=== PATIENT | male | born 1990 | race American Indian/Alaskan Native ===

== ENCOUNTER 2020-07-21 11:50 | Outpatient (REF) | payer MEDICARE, MEDICAID, SELFPAY | END 2020-07-21 11:51 | disposition home or self-care (01) | LOC: HO.LAB 11:50 | PROVIDERS: Visit Provider Internal Medicine | DX: Z20.828 Contact with and (suspected) exposure to other viral communicable diseases (principal) | CPT/HCPCS: C9803; U0003 ==

== ENCOUNTER 2021-05-05 13:14 | Emergency (ER) | payer MEDICARE, MEDICAID, SELFPAY ==
--- NOTE | ~2021-05-05 | XR_ITS ---
EXAMINATION: XR KNEE, RIGHT CLINICAL INFORMATION: Fall. History of ACL tear in the past. COMPARISON: None TECHNIQUE: Four views of the right knee. FINDINGS: Status post ACL repair. There is fullness in the suprapatellar area from a moderate to large volume joint effusion. There is no fracture. No dislocation. No acute osseous abnormality. XR/XR knee RT 4V IMPRESSION: Moderate to large volume joint effusion. No acute osseous abnormality.
[2021-05-05 13:31] VITALS: BP 116/74; PULSE 84; RESP 18; TEMP 36.9; O2SAT 97; BMI 22.4
--- NOTE | 2021-05-05 14:37 | ED_ITS ---
HPI - Extremity Problem General Chief complaint: Extremity Problem Stated complaint: knee pain Time Seen by Provider: 05/05/21 14:36 Source: patient Limitations: no limitations History of Present Illness HPI Narrative: Patient presents with worsening right knee pain. Patient has a history of an ACL tear in the past that was repaired. Patient states he fell yesterday when he slipped in the rain leaning on the outside of the right knee. Patient states he had some pain yesterday and slight swelling but the swelling has worsened today. Pain increases with range of motion weight-bearing. Pain is 7/10. Patient denies any other injuries or complaints at this time. Patient does smoke tobacco. Patient denies nausea vomiting chest pain shortness of breath fever chills. Related Data Previous Rx's Medication Instructions Recorded naproxen 500 mg tablet 500 mg PO BID PRN #30 tab 05/05/21 Allergies Allergy/AdvReac Type Severity Reaction Status Date / Time No Known Allergies Allergy Unverified 04/23/20 16:56 Review of Systems Constitutional: Constitutional: Denies chills, Denies fever(s) and Denies headache(s) ENT: Denies headache(s) Cardiovascular: Cardiovascular: Denies chest pain and Denies dyspnea Respiratory: Respiratory: Denies cough and Denies dyspnea Gastrointestinal: Gastrointestinal: Denies abdominal pain, Denies nausea and Denies vomiting Musculoskeletal: Musculoskeletal: Denies back pain, Denies myalgias and Reports joint swelling Comments: Right knee pain Neurologic: Denies headache(s) Hematologic/Lymphatic: Hematologic/Lymphatic: Denies easy bruising Allergic/Immunologic: Allergic/Immunologic: Denies urticaria PMFSH Past Medical History Attestation statement: The following information was validated with the patient. Social History Social History Advance Directives: No Advance Directives Information Provided: No Physical Exam Vital Signs: Vital Signs: Last Vital Signs Temp 98.4 F 05/05/21 13:31 Pulse 84 05/05/21 13:31 Resp 18 05/05/21 13:31 BP 116/74 05/05/21 13:31 Pulse Ox 97 05/05/21 13:31 Body Mass Index 22.4 vital signs have been reviewed as normal and appeared to be correct. Blood pressure normal. Heart rate normal. Respiration rate normal. Temperature normal. Oxygen saturation normal. Appearance: Alert. Oriented X3. No acute distress. Head: Normal external exam. Normocephalic. Atraumatic. Eyes: PERRLA. EOMI. Conjunctiva and sclera normal. Eyelids normal. ENT: Pharynx normal. Uvula midline. Moist mucous membranes. Neck: Soft full range of motion, no JVD CVS: Heart regular rate and rhythm no murmurs and rubs Respiratory: Breath sounds are clear to auscultation bilaterally. No accessory muscle use noted. Abdomen: Soft nontender no rebound or guarding positive bowel sounds Skin: Skin warm and dry. Normal skin color. Normal skin turgor. No rashes/lesions/lacerations noted. Extremities: Right knee large to moderate effusion noted positive joint line tenderness question laxity in joint. Diffuse tenderness right joint line greater than left Neuro: Oriented X 3. No motor deficit. No sensory deficit. Reflexes normal. Course Course Course Narrative: Right knee fracture Right knee ACL tear Underlying meniscal injury Right knee joint effusion Symptoms consistent with a ligament tear secondary to large effusion will get a baseline x-ray recommend follow-up with Orthopedics knee immobilizer crutches. 3:[address] patient in knee immobilizer crutches with follow-up with Orthopedics patient does have a large knee effusion on x-ray no sign of osseous injury MDM - Extremity (Nontraumatic) Imaging Data knee: Radiologist's impression: [place] [id number] XRay Report Signed Patient: Tone Boraj MR#: [id number] : 1990 Acct:[id number] Age/Sex: 31 / M ADM Date: 05/05/21 Loc: HO.ED Attending Dr: Ordering Physician: Kevin Molina Date of Service: 05/05/21 Procedure(s): XR knee RT 4V Accession Number(s): [id number] cc: Kevin Molina ~ EXAMINATION: XR KNEE, RIGHT? CLINICAL INFORMATION: Fall. History of ACL tear in the past.? COMPARISON: None? TECHNIQUE: Four views of the right knee. FINDINGS: Status post ACL repair. There is fullness in the suprapatellar area from a moderate to large volume joint effusion. There is no fracture. No dislocation. No acute osseous abnormality.? XR/XR knee RT 4V IMPRESSION: Moderate to large volume joint effusion. No acute osseous abnormality. ? Dictated By: DIANA ZEE MD Signed By: <Electronically signed by DIANA ZEE MD in OV> 05/05/21 1501 DD/ 1436 TD/TT:? Data Entry Associate: ERLIN Discharge Plan Discharge Clinical Impression: Right knee sprain Qualifiers: Encounter type: initial encounter Involved ligament of knee: anterior cruciate ligament Qualified Code(s): S83.511A - Sprain of anterior cruciate ligament of right knee, initial encounter Effusion of knee joint Qualifiers: Laterality: right Qualified Code(s): M25.461 - Effusion, right knee Patient Disposition: Home, Self-Care Instructions: Knee Sprain (ED), Crutch Instructions (ED) Additional Instructions: Knee immobilizer crutches or rest ice elevation need to follow up with Orthopedics to rule out underlying ligament injury which is what were concerned for. Prescriptions: New naproxen 500 mg tablet 500 mg PO BID PRN (Reason: pain) Qty: 30 RF: 0 Referrals: Gino Carmona MD [Physician] - 2 days (Prior history of ACL repair a large knee effusion after injury) Interventions: ED Discharge Assessment Last Done: 05/05/21 15:40 Discharge Date/Time: 05/05/21 15:41
== END 2021-05-05 15:41 | disposition home or self-care (01) ==
PROVIDERS: Emergency Provider Emergency Medicine Emergency Medical Services
DX: S83.511A Sprain of anterior cruciate ligament of right knee, initial encounter (principal); M25.461 Effusion, right knee; M25.561 Pain in right knee; X58.XXXA Exposure to other specified factors, initial encounter; Y93.9 Activity, unspecified; Y92.9 Unspecified place or not applicable; Y99.9 Unspecified external cause status; Z79.899 Other long term (current) drug therapy
CPT/HCPCS: 73564; 99283

== ENCOUNTER 2021-05-11 19:52 | Inpatient (IN) | payer MEDICARE, MEDICAID, SELFPAY ==
--- NOTE | ~2021-05-11 | XR_ITS ---
EXAMINATION: XR CHEST CLINICAL INFORMATION: Follow-up pneumothorax COMPARISON: Previous chest x-rays most recent from yesterday TECHNIQUE: Frontal view of the chest was obtained. FINDINGS: There is a small right apical pneumothorax. This measures 7 mm in greatest thickness at the right lung apex and is decreased from yesterday's exam. Right chest tube is unchanged in position. The cardiac and mediastinal contours are normal. The lungs are clear. There is no pleural effusion. Bony structures are unremarkable. XR/XR chest 1V IMPRESSION: Stable position of right chest tube. Small residual right apical pneumothorax decreased from yesterday's exam.
--- NOTE | ~2021-05-11 | XR_ITS ---
EXAMINATION: XR CHEST CLINICAL INFORMATION: Shortness of breath COMPARISON: Previous chest x-ray from earlier the same day TECHNIQUE: Frontal view of the chest was obtained. FINDINGS: There is a small right apical pneumothorax that appears unchanged. This measures 5 mm in greatest thickness at the lung apex. Right chest tube is unchanged in position. The cardiac and mediastinal contours are stable. The lungs are clear. There is no pleural effusion. Bony structures are normal. XR/XR chest 1V IMPRESSION: Stable tiny right apical pneumothorax. Stable position of right chest tube.
--- NOTE | ~2021-05-11 | XR_ITS ---
EXAMINATION: XR CHEST CLINICAL INFORMATION: Follow-up pneumothorax. Post chest tube placement. COMPARISON: Previous chest x-ray from earlier the same day TECHNIQUE: AP portable view of the chest was obtained. FINDINGS: There is a new small caliber chest tube at the right lung base. There is interval decrease in the right pneumothorax. This measures 2 cm in greatest thickness at the right lung apex. The cardiac and mediastinal contours are stable. There is atelectasis in the right lung base. The lungs are otherwise clear. There is no pleural effusion. Bony structures are unremarkable. XR/XR chest 1V IMPRESSION: Interval decrease in right pneumothorax post chest tube placement.
--- NOTE | ~2021-05-11 | XR_ITS ---
EXAMINATION: XR CHEST CLINICAL INFORMATION: Follow-up pneumothorax COMPARISON: Previous chest x-ray from earlier the same day TECHNIQUE: Frontal view of the chest was obtained. FINDINGS: There is interval decrease in the right pneumothorax compared to chest x-ray from earlier today. There is a small pneumothorax at the right lung apex measuring 1.5 cm in greatest thickness. Right chest tube is unchanged in position. The cardiac and mediastinal contours are stable. The lungs are clear. There is no left pleural effusion or pneumothorax. Bony structures are unremarkable. XR/XR chest 1V IMPRESSION: Interval decrease in right pneumothorax compared to chest x-ray earlier today.
--- NOTE | ~2021-05-11 | XR_ITS ---
EXAMINATION: XR CHEST CLINICAL INFORMATION: Follow-up pneumothorax COMPARISON: Previous chest x-rays most recent from yesterday TECHNIQUE: Inspiration and expiration views of the chest. FINDINGS: There is a moderate-sized right pneumothorax. This appears increased compared to yesterday's exam at the right base/costophrenic angle region. The cardiac and mediastinal contours are normal. There is atelectasis at the right lung base, probably the right lower lobe. The left lung is clear. There is no pleural effusion effusion. Bony structures are unremarkable. XR/XR chest 1V IMPRESSION: Moderate right pneumothorax. This is increased from yesterday's exam. Findings will be communicated by the [place] work flow police matron Jessica Prajapati on 05/12/2021
--- NOTE | ~2021-05-11 | XR_ITS ---
EXAMINATION: XR CHEST CLINICAL INFORMATION: Right pneumothorax on clamping trial COMPARISON: 05/16/2021 TECHNIQUE: Portable AP upright view of the chest was obtained. FINDINGS: Cardiac and mediastinal silhouettes are normal in appearance. Right pigtail catheter is identified overlying the mid to lower right chest. A trace right apical pneumothorax is slightly smaller than prior. The left lung is clear. XR/XR chest 1V IMPRESSION: Trace right apical pneumothorax, slightly decreased in size compared to prior. The lungs and pleural spaces are clear.
--- NOTE | ~2021-05-11 | XR_ITS ---
EXAMINATION: XR CHEST CLINICAL INFORMATION: Right pneumothorax with pigtail catheter. COMPARISON: 05/15/2021 TECHNIQUE: Frontal view of the chest was obtained. FINDINGS: Right-sided pigtail catheter remains in place. Cardiac leads overlie the chest. The lungs are well expanded. There is a tiny right apical pneumothorax again noted, similar to prior. No pleural effusion. No dense consolidation. No edema. The cardiomediastinal silhouette is within normal limits. No acute osseous abnormality. XR/XR chest 1V IMPRESSION: No change of the tiny right apical pneumothorax.
--- NOTE | ~2021-05-11 | XR_ITS ---
EXAMINATION: XR CHEST CLINICAL INFORMATION: Right pneumothorax status post chest tube placement COMPARISON: 05/12/2021 TECHNIQUE: Frontal view of the chest was obtained. FINDINGS: Right-sided chest tube remains in place, more superiorly positioned than on prior. Cardiac leads overlie the chest. The lungs are well expanded. Small right apical pneumothorax is without change from prior. No dense consolidation. No edema or effusion. The cardiomediastinal silhouette is unchanged. XR/XR chest 1V IMPRESSION: Small right-sided pneumothorax without significant change from prior.
--- NOTE | ~2021-05-11 | XR_ITS ---
EXAMINATION: XR CHEST CLINICAL INFORMATION: Evaluate pneumothorax with chest tube to waterseal COMPARISON: Previous chest x-rays most recent from yesterday TECHNIQUE: Frontal view of the chest was obtained. FINDINGS: There is interval increase in the now moderate size right pneumothorax. This measures maximum of 4 cm at the right lung apex. The right chest tube is unchanged in position. The cardiac and mediastinal contours are normal. The lungs are clear. There is no pleural effusion. Bony structures are unremarkable. XR/XR chest 1V IMPRESSION: Interval increase in now moderate size right pneumothorax with chest tube to water seal. Findings will be communicated by a [employer] [place] work flow canal boat operator.
--- NOTE | ~2021-05-11 | CT_ITS ---
PROCEDURE: CT GUIDED INSERTION, PLEURAL TUNNEL CATHETER CLINICAL INFORMATION: Right pneumothorax COMPARISON: Previous chest x-rays most recent from earlier the same day TECHNIQUE: Procedure and risks and benefits including bleeding, infection and inability to get the lung to reinflate were discussed with the patient and informed consent was obtained. The patient was positioned in the supine position. Limited axial images through the chest were obtained. The right anterior chest was prepped and draped in the usual sterile fashion. The skin and soft tissues were anesthetized percent lidocaine plain. A CT guidance and a 5 [place] Yueh needle, access to the right pleural space was obtained. Over an 035 guidewire and proximal ureteral dilatation, a 10.2 [place] pigtail chest tube was positioned in the right pleural space. Attached to a Pleur-evac. Patient received Versed 2 mg and fentanyl 100 mcg intravenously during the procedure. Continuous hemodynamic monitoring was provided by a registered nurse under my direct supervision. Total sedation time was [address] examination was performed using dose optimization techniques as appropriate, variously including the following: *Automated exposure control *Adjustment of mA and/or kV according to patient size (this includes techniques or standardized protocols for targeted exams where dose is matched to indication/reason for exam; i.e. extremities or head) *Use of iterative reconstruction technique DLP: 143 mGy-cm FINDINGS: There is a moderate to size right pneumothorax. There is atelectasis and consolidation of the right lower lobe. There is no right pleural effusion. Images following chest tube placement demonstrate chest tube adjacent to the right middle lobe. There is reinflation of the right lung. There is a small remaining right pneumothorax. There is residual atelectasis or consolidation of the right lower lobe. CT/CT chest tube placement IMPRESSION: CT-guided right chest tube placement.
--- NOTE | ~2021-05-11 | XR_ITS ---
EXAMINATION: CHEST 2 VIEWS CLINICAL INFORMATION: right sided chest pain after cocaine use . COMPARISON: 09/21/2019. TECHNIQUE: PA and lateral views of the chest obtained. FINDINGS: Lungs are well expanded. There is moderate size right-sided pneumothorax which is new from the prior chest x-ray. Minimal left basilar scarring or atelectasis. No significant effusion or edema. No focal infiltrate. Cardiac and mediastinal silhouettes within normal limits for size. No acute bony abnormality. XR/XR chest 2V IMPRESSION: Moderate-sized right apical pneumothorax of approximately 25%. No acute focal airspace disease with minimal linear atelectasis in the left base. This critical result was discussed with Dr. Martin at 05/11/2021 9:09 PM and it was ascertained that the content and urgency of the report was understood at the time of direct communication.
[2021-05-11 20:07] VITALS: BP 125/83; PULSE 95; RESP 21; TEMP 37.3; O2SAT 100; BMI 22.4
--- NOTE | 2021-05-11 20:08 | ED.CHESTPAIN ---
HPI - Chest Pain General Chief Complaint: Chest Pain Stated Complaint: cp Time Seen by Provider: 05/11/21 20:08 Source: patient Mode of arrival: ambulatory Limitations: no limitations History of Present Illness HPI narrative: Patient with chest pain and shortness of breath. Patient had cocaine and marijuana and then developed chest pain complaint: chest pain Onset (ago): minute(s) Timing of current episode: constant Onset: associated with drug use Pain location: right chest Severity: moderate Quality: sharp Exacerbating factors: nothing Associated symptoms: diaphoresis Related Data Previous Rx's Medication Instructions Recorded naproxen 500 mg tablet 500 mg PO BID PRN #30 tab 05/05/21 Allergies Allergy/AdvReac Type Severity Reaction Status Date / Time No Known Allergies Allergy Unverified 04/23/20 16:56 Review of Systems Constitutional: Constitutional: Reports no additional constitutional complaints Eyes: Eyes: Reports no additional eye complaints ENT: Denies dizziness Cardiovascular: Cardiovascular: Reports no additional cardiovascular complaints Respiratory: Respiratory: Reports as per HPI Gastrointestinal: Gastrointestinal: Reports no additional gastrointestinal complaints Musculoskeletal: Musculoskeletal: Reports no additional musculoskeletal complaints Integumentary/Breasts: Skin/Breast: Denies rash Neurologic: Reports system reviewed and no additional complaints, except as documented, Denies dizziness and Denies Sensory deficit (Neuro) Psychiatric: Psychiatric: Denies anxiety [facility] Social History Social History Patient Tobacco Use Status: Current everyday Tobacco user Use of substances other than those prescribed or required for medical reasons: Yes Substance Use Type: Crack/Cocaine Advance Directives: No Advance Directives Information Provided: No Physical Exam Vital Signs: Vital Signs: Last Vital Signs Temp 99.2 F 05/11/21 20:16 Pulse 93 05/11/21 20:16 Resp 20 05/11/21 20:16 BP 125/83 05/11/21 20:16 Pulse Ox 98 05/11/21 20:16 Body Mass Index 22.4 Const: Other: Patient with diaphoresis General: healthy appearing Nutritional Appearance: thin Orientation/consciousness: oriented to person and patient oriented x3 Limitations: no limitations HENMT: Head: Yes normal to inspection Ears: external ears normal General nose exam: Normal external nose present Mouth: Normal oral and palatal mucosa present and oropharynx normal Throat: Yes posterior oropharynx normal Eyes: General: appearance normal, both eyes and all related structures Neck: Other: supple Neck: Yes normal visual inspection Chest: Chest palpation & inspection: normal inspection of the chest Resp: Auscultation: clear to auscultation bilaterally Cardio: Jugular venous distension: no JVD Rate: regular rate Rhythm: regular rhythm Heart sounds: S1 normal heart sound present and S2 normal heart sound present GI: Inspection: Yes normal to inspection Palpation (GI): Soft to palpation, nontender and No hepatosplenomegaly present Auscultation: normal bowel sounds : General: Yes no CVA tenderness Back/Spine/Pelvis: Back: no CVA tenderness Skin: General skin exam: no rashes or lesions noted Neuro: General: oriented to person and patient oriented x3 Cranial nerves: Yes CN's II-XII intact bilaterally Motor exam (neuro): 5/5 motor strength present throughout Sensory Exam: No Sensory deficit (Neuro) Extrem: General: Yes normal to inspection Psych: Appearance: grossly normal Course Reevaluation(s) Reevaluation #1: patient with 20% PTX will discuss with thoracic surgery Time: 20:55 Reevaluation #2: Discussed with Shan from Thoracic surgery will place on 100% NRB and admit for repeat CXR in the morning Time: 21:19 MDM - Chest Pain Lab Data Result diagrams: 05/11/21 20:24 05/11/21 20:24 Labs: Lab Results 05/11/21 05/11/21 05/11/21 Range/Units 20:24 20:24 20:24 WBC 10.9 H (4.8-10.8) X10*3/uL RBC 4.40 L (4.60-5.80) X10*6/uL Hgb 13.3 L (14.0-18.0) g/dl Hct 39.0 L (42-52) % MCV 88.6 (80-98) fL MCH 30.2 (27.0-33.0) pg MCHC 34.1 (31.0-36.0) g/dl RDW 12.3 (11.0-16.0) % Plt Count 298 (160-400) X10*3/uL MPV 9.1 L (9.4-12.4) fL Immature Gran % (Auto) 0.3 (0.0-0.4) % Neut % (Auto) 74.3 H (45-73) % Lymph % (Auto) 19.7 L (20-40) % [place] % (Auto) 5.2 (2-11) % Eos % (Auto) 0.1 (0-4) % Baso % (Auto) 0.4 (0-2) % Lymph # (Auto) 2.2 (1.2-4.9) X10*3/uL [place] # (Auto) 0.6 (0.1-1.2) X10*3/uL Eos # (Auto) 0.0 (0.0-0.4) X10*3/uL Baso # (Auto) 0.0 (0.0-0.2) X10*3/uL Abs Immat Gran (auto) 0.03 (0.00-0.03) X10*3/uL Absolute Neuts (auto) 8.1 (2.0-8.3) X10*3/uL Absolute Nucleated RBC 0.000 (0.0-0.012) X10*3/uL Nucleated RBC % (auto) 0.0 (0.0-0.2) /100WBC Sodium 141 (135-145) mmol/L Potassium 3.5 (3.3-5.1) mmol/L Chloride 106 (96-108) mmol/L Carbon Dioxide 27 (22-29) mmol/L Anion Gap 12 (12-20) BUN 9 (9-16) mg/dL Creatinine 1.19 (0.5-1.4) mg/dL Estim Creat Clear Calc 94.3 Estimated GFR > 60 Random Glucose 108 (60-115) mg/dL Calcium 9.5 (8.4-10.2) mg/dL Troponin I High Sens 10.0 (<3.5-35.0) ng/L Imaging Data Chest x-ray: My impression: 20% Ptx Discharge Plan Discharge Clinical Impression: Pneumothorax Qualifiers: Pneumothorax type: spontaneous, primary Qualified Code(s): J93.11 - Primary spontaneous pneumothorax Patient Disposition: Admitted As Inpatient
[2021-05-11 20:13] VITALS: BP 125/83; PULSE 92; RESP 19; TEMP 37.3; O2SAT 98
--- NOTE | 2021-05-11 20:13 | ECG_ITS ---
Test Reason : CHEST PAIN Blood Pressure : / mmHG Vent. Rate : 116 BPM Atrial Rate : 116 BPM P-R Int : 186 ms QRS Dur : 106 ms QT Int : 314 ms P-R-T Axes : 074 092 021 degrees QTc Int : 436 ms Sinus tachycardia Rightward axis Incomplete right bundle branch block Borderline ECG When compared with ECG of 21-SEP-2019 11:45, Vent. rate has increased BY 48 BPM T wave inversion now evident in Inferior leads Nonspecific T wave abnormality now evident in Lateral leads Referred By: Tee Martin Electronically Signed By:JESSICA CALDERON
[2021-05-11 20:16] VITALS: BP 125/83; PULSE 93; RESP 20; TEMP 37.3; O2SAT 98; BMI 22.4
[2021-05-11 20:29] LABS: MANUAL DIFF FLAG NO
[2021-05-11 20:33] LABS: Basophils Percent Auto 0.4 % (0-2); Eosinophils Percent Auto 0.1 % (0-4); Hemoglobin 13.3 g/dl (14.0-18.0); Imm Gran Abs Auto 0.03 X10*3/uL (0.00-0.03); Imm Gran Pct Auto 0.3 % (0.0-0.4); Lymphocytes Absolute Auto 2.2 X10*3/uL (1.2-4.9); Lymphocytes Percent Auto 19.7 % (20-40); Mean Corpuscular HGB Conc 34.1 g/dl (31.0-36.0); Mean Corpuscular Hemoglobin 30.2 pg (27.0-33.0); Mean Corpuscular Volume 88.6 fL (80-98); Mean Platelet Volume 9.1 fL (9.4-12.4); Monocytes Absolute Auto 0.6 X10*3/uL (0.1-1.2); Monocytes Percent Auto 5.2 % (2-11); Neutrophils Absolute Auto 8.1 X10*3/uL (2.0-8.3); Neutrophils Percent Auto 74.3 % (45-73); Platelet Count 298 X10*3/uL (160-400); Red Cell Distribution Width 12.3 % (11.0-16.0); White Blood Count 10.9 X10*3/uL (4.8-10.8)
[2021-05-11 20:45] LABS: Anion Gap 12 (12-20); Blood Urea Nitrogen 9 mg/dL (9-16); Calcium 9.5 mg/dL (8.4-10.2); Carbon Dioxide 27 mmol/L (22-29); Chloride 106 mmol/L (96-108); Creatinine Clr Calc Pharmacy 94.3; Estimated Glomerular Filt Rate > 60; Glucose Random 108 mg/dL (60-115); Potassium 3.5 mmol/L (3.3-5.1); Sodium 141 mmol/L (135-145)
--- NOTE | 2021-05-11 21:29 | PHA.MEDREC ---
Pharmacy Consult ? Medication Reconciliation Pharmacy has completed the medication reconciliation.
[2021-05-11 21:49] LABS: COVID-19 Test Negative (Negative)
--- NOTE | 2021-05-11 22:10 | P.HPHOSP_ITS ---
History of Present Illness Date of Service: 05/11/21 Chief Complaint: Chest pain 31-year-old male with no significant past medical history who presents to the hospital with complaint of chest pain and shortness of breath. Patient reports that he used some cocaine today followed by marijuana, shortly after developed significant right-sided chest pain that was 10/10, associated with shortness of breath, radiating to the back, constant, worse with deep inspiration. Patient denies any headache, he no dizziness, no palpitations, no abdominal pain nausea or vomiting, no diarrhea constipation, no urinary symptoms and no lower extremity edema. No numbness tingling or weakness. On arrival to the ED patient hemodynamically stable with no significant abnormal vitals, satting 100% on room air Labs reviewed with no significant abnormality Moderate size right epical pneumothorax of approximately 25%. No acute focal airspace disease Thoracic surgery was consulted, recommended patient be placed on 100% non- rebreather and admitted for observation Review of Systems Review of Systems: Yes all other systems are reviewed and are negative [facility] Medical History (Updated 05/11/21 @ 22:14 by Jose J Soliman MD) No pertinent past medical history Pertinent family history: Denies any family history Surgical History (Updated 05/11/21 @ 22:14 by Jose J Soliman MD) H/O knee surgery Social History (Updated 05/11/21 @ 22:15 by Jose J Soliman MD) Alcohol intake: current Patient Tobacco Use Status: Current everyday Tobacco user Cigarette Packs Per Day: 1 Use of substances other than those prescribed or required for medical reasons: Yes Substance Use Type: Crack/Cocaine Advance Directives: No Advance Directives Information Provided: No Meds Allergies Allergy/AdvReac Type Severity Reaction Status Date / Time No Known Allergies Allergy Unverified 04/23/20 16:56 Active Medications: Current Medications Pharmacy Consult (Consult Rx Perform Med Rec) 1 each MISCELLANE ONCE PRN PRN Reason: Consult order Home Medications Medication Instructions Recorded Confirmed Last Taken Type naproxen 500 mg tablet 500 mg PO BID PRN 05/11/21 05/11/21 Unknown History Physical Exam Vital Signs and Narrative: Vital Signs: Last Vital Signs Temp 99.2 F 05/11/21 20:16 Pulse 93 05/11/21 20:16 Resp 20 05/11/21 20:16 BP 125/83 05/11/21 20:16 Pulse Ox 98 05/11/21 20:16 Body Mass Index 22.4 Const: General: cooperative and no acute distress Orientation/consciousness: patient oriented x3 Eyes: General: appearance normal, both eyes and all related structures Resp: Other: on non-rebreather deminished breath sounds on right lung Effort & Inspection: normal respiratory effort Auscultation: clear to auscultation bilaterally Cardio: Rate: regular rate Rhythm: regular rhythm GI: Palpation (GI): Soft to palpation Auscultation: normal bowel sounds Skin: General skin exam: no rashes or lesions noted Neuro: General: patient oriented x3 Cognition (Neuro): normal cognition Extrem: General: Yes normal to inspection and Yes no pedal edema Results Labs CBC and Chem 7: 05/11/21 20:24 05/11/21 20:24 Labs: Laboratory Results - last 24 hr 05/11/21 05/11/21 05/11/21 20:24 20:24 20:24 MCV 88.6 MCH 30.2 MCHC 34.1 RDW 12.3 Plt Count 298 MPV 9.1 L Immature Gran % (Auto) 0.3 Neut % (Auto) 74.3 H Lymph % (Auto) 19.7 L [place] % (Auto) 5.2 Eos % (Auto) 0.1 Baso % (Auto) 0.4 Lymph # (Auto) 2.2 [place] # (Auto) 0.6 Eos # (Auto) 0.0 Baso # (Auto) 0.0 Abs Immat Gran (auto) 0.03 Absolute Neuts (auto) 8.1 Absolute Nucleated RBC 0.000 Nucleated RBC % (auto) 0.0 Anion Gap 12 Estim Creat Clear Calc 94.3 Estimated GFR > 60 Random Glucose 108 Calcium 9.5 Troponin I High Sens 10.0 COVID-19 ([facility]) COVID-19 Clin Com 05/11/21 21:28 MCV MCH MCHC RDW Plt Count MPV Immature Gran % (Auto) Neut % (Auto) Lymph % (Auto) [place] % (Auto) Eos % (Auto) Baso % (Auto) Lymph # (Auto) [place] # (Auto) Eos # (Auto) Baso # (Auto) Abs Immat Gran (auto) Absolute Neuts (auto) Absolute Nucleated RBC Nucleated RBC % (auto) Anion Gap Estim Creat Clear Calc Estimated GFR Random Glucose Calcium Troponin I High Sens COVID-19 ([place]) Negative COVID-19 Clin Com See Note Imaging Radiologist's Impressions: Impressions Chest X-Ray 05/11/21 20:13 IMPRESSION: Moderate-sized right apical pneumothorax of approximately 25%. No acute focal airspace disease with minimal linear atelectasis in the left base. This critical result was discussed with Dr. Martin at 05/11/2021 9:09 PM and it was ascertained that the content and urgency of the report was understood at the time of direct communication. Assessment and Plan (1) Pneumothorax: Qualifiers: Pneumothorax type: spontaneous, primary Qualified Code(s): J93.11 - Primary spontaneous pneumothorax Status: Acute 31-year-old male with no significant past medical history who presents to the hospital shortness of breath and chest pain found to have pneumothorax after smoking marijuana and using crack cocaine # spontaneous pneumothorax - stable with no hypoxia - chest x-ray showing about 25% pneumothorax of the right lung - continue oxygen supplement using non-rebreather - repeat x-ray in the morning - thoracic surgery consult, if improved, no further intervention, if worsened plan on placing chest tube DVT prophylaxis: Early ambulation Quality Stroke Does the patient have a stroke diagnosis?: No VTE Prior VTE?: No VTE Risk Level:: Medical - low VTE Device Contraindication: Treatment Not Indicated VTE Drug Contraindication: Treatment Not Indicated
[2021-05-12] VITALS (9 sets, daily range): BP systolic 109–128; BP diastolic 68–95; PULSE 48–77; RESP 12–21; TEMP 36.4–37.3; O2SAT 97–100
--- NOTE | 2021-05-12 06:06 | PC.NURSE ---
Pt alert and oriented x4, clam and cooperative. Pt denies chest pain or SOB at this time. Pt remains on non-rebreather per MD orders. Pt sleeping through most of shift. Pt noted to be bradycardic in the high 40's while sleeping this shift. Pt heart rate returns to WNL when awake. Pt resting in stretcher without complaints at this time, will continue to monitor.
--- NOTE | 2021-05-12 07:28 | PC.NURSE ---
Assumed care of patient. Pt is awake, alert and oriented. Pt is resting comfortably and is on oxygen via NRB at 15lpm. Pt denies any sob and does not appear to be in any respiratory distress. Pt to have a repeat chest x-ray this morning
--- NOTE | 2021-05-12 08:36 | PM.CNGS ---
History of Present Illness Consult details Consult date: 05/12/21 Reason for consult: other (Right pneumothorax, 1st occurrence) Narrative: Patient is a 31-year-old male with no significant past medical history aside from tobacco abuse (currently smokes 1 PPD since the age of 14), recreational marijuana, and cocaine who presented to [facility] after complaints of shortness of breath and pain to the right chest after smoking marijuana. Patient reports he was taking his second drag and at that moment felt short of breath and severe pain to the right upper chest. Patient states he has never had a collapsed lung in the past. He does report a history of smoking and is a current active smoker who smokes approximately 1 pack/day. He states he has been smoking since the age of 14. Chest x-ray was performed on arrival to the emergency room and showed a right moderate sized apical pneumothorax. Patient was admitted to the medicine team for observation given this finding a repeat chest x-ray was ordered this morning. No significant abnormal vital signs or lab work. Thoracic surgery was consulted for possible need of chest tube placement. Patient was seen today in the emergency room. He was sitting comfortably in stretcher oxygenating 99% on room air. Patient reported improvement in his breathing and states he has been on a nonrebreather mask throughout the night. Patient denied any chest pain or worsening shortness of breath at the time of my exam. He denies any fevers, chills, or respiratory distress. Review of Systems Review of Systems: Yes all other systems are reviewed and are negative Constitutional: Constitutional: Reports as per HPI Eyes: Eyes: Reports as per HPI ENT: Reports system reviewed and no additional complaints, except as documented Cardiovascular: Cardiovascular: Reports no additional cardiovascular complaints Respiratory: Respiratory: Reports no additional respiratory complaints and Reports cough (dry non productive) Gastrointestinal: Gastrointestinal: Reports no additional gastrointestinal complaints Genitourinary: Genitourinary: Reports no additional male genitourinary complaints Musculoskeletal: Musculoskeletal: Reports no additional musculoskeletal complaints Integumentary/Breasts: Skin/Breast: Reports system reviewed and no additional complaints, except as docu Psychiatric: Psychiatric: Reports no additional psychiatric complaints Endocrine: Endocrine: Reports no additional endocrine complaints Hematologic/Lymphatic: Hematologic/Lymphatic: Reports no additional hematologic/lymphatic complaints Allergic/Immunologic: Allergic/Immunologic: Reports no additional allergic/immunologic complaints [facility] Past Medical History Medical History No pertinent past medical history Surgical History Surgical History (Updated 05/11/21 @ 22:14 by Jose J Soliman MD) H/O knee surgery Social History Social History (Updated 05/11/21 @ 22:15 by Jose J Soliman MD) Alcohol intake: current Patient Tobacco Use Status: Current everyday Tobacco user Cigarette Packs Per Day: 1 Use of substances other than those prescribed or required for medical reasons: Yes Substance Use Type: Crack/Cocaine Advance Directives: No Advance Directives Information Provided: No Meds Allergies Allergy/AdvReac Type Severity Reaction Status Date / Time No Known Allergies Allergy Unverified 04/23/20 16:56 Active Medications: Current Medications Pharmacy Consult (Consult Rx Perform Med Rec) 1 each MISCELLANE ONCE PRN PRN Reason: Consult order Home Medications Medication Instructions Recorded Confirmed Last Taken Type naproxen 500 mg tablet 500 mg PO BID PRN 05/11/21 05/11/21 Unknown History Physical Exam Vital Signs: Vital Signs: Last Vital Signs Temp 98.6 F 05/12/21 06:01 Pulse 48 L 05/12/21 07:18 Resp 19 05/12/21 07:18 BP 116/68 05/12/21 07:18 Pulse Ox 100 05/12/21 07:18 Body Mass Index 22.4 Const: General: cooperative, healthy appearing, comfortable and no acute distress Nutritional Appearance: well nourished Orientation/consciousness: oriented to person, oriented to place, oriented to time and patient oriented x3 Limitations: no limitations HENMT: Head: Yes normal to inspection, Yes normocephalic and Yes atraumatic Mouth: Normal oral and palatal mucosa present Eyes: Visual Hale: normal visual hale by confrontation Alignment and Position: alignment normal Periorbital: periorbital findings normal Conjunctivae: conjunctivae normal Sclerae: sclerae normal Pupils: Equal, round and reactive pupils present and Pupil accommodation reflex normal EOM: EOMs intact bilaterally Neck: Neck: Yes normal visual inspection, Yes full ROM, Yes no lymphadenopathy, Yes trachea midline, Yes supple, No lymphadenopathy, No tender and No tracheal deviation Lymphatic: no lymphadenopathy noted Chest: Chest palpation & inspection: normal inspection of the chest and no crepitus Resp: Other: Patient is speaking in full sentences, currently on room air while he is eating breakfast. Non-rebreather mask attached to neck. Denies respiratory distress and reports an improvement in his breathing. Effort & Inspection: normal respiratory effort, able to speak in complete sentences, normal respiratory pattern, no audible wheezes, no cough, no pursed lip breathing, no respiratory distress, no stridor, not tachypneic and no tracheal deviation Auscultation: clear to auscultation bilaterally Cardio: Jugular venous distension: no JVD Palpation: normal PMI Rate: regular rate Rhythm: regular rhythm Heart sounds: S1 normal heart sound present, S2 normal heart sound present, no click, no gallops, no murmurs and no rubs GI: Inspection: Yes normal to inspection Auscultation: normal bowel sounds : General: Yes no CVA tenderness Back/Spine/Pelvis: Back: no CVA tenderness Thoracic/Lumbar Spine: thoracic and lumbar spine normal to inspection Skin: General skin exam: no rashes or lesions noted and dry skin Lesions: no lesions Rashes: no rashes Neuro: General: oriented to person, oriented to place, oriented to time, patient oriented x3 and gait normal Cranial nerves: Yes Equal, round and reactive pupils present Extrem: General: Yes normal to inspection, Yes full ROM, Yes capillary refill normal, Yes no clubbing, cyanosis or edema, Yes no pedal edema and Yes normal gait Psych: Appearance: grossly normal and well kempt Mental Status: mental status grossly normal Speech and movement: Normal speech and movement present and Clear speech present Affect: normal affect Attitude: cooperative Thought process: Normal thought process present Thought content: Normal thought content present Results Labs Result diagrams: 05/11/21 20:24 05/11/21 20:24 Labs: Abnormal lab results 05/11/21 Range/Units 20:24 WBC 10.9 H (4.8-10.8) X10*3/uL RBC 4.40 L (4.60-5.80) X10*6/uL Hgb 13.3 L (14.0-18.0) g/dl Hct 39.0 L (42-52) % MPV 9.1 L (9.4-12.4) fL Neut % (Auto) 74.3 H (45-73) % Lymph % (Auto) 19.7 L (20-40) % Short CBC 05/11/21 Range/Units 20:24 WBC 10.9 H (4.8-10.8) X10*3/uL Hgb 13.3 L (14.0-18.0) g/dl Hct 39.0 L (42-52) % Plt Count 298 (160-400) X10*3/uL [facility] 05/11/21 20:24 Sodium 141 Potassium 3.5 Chloride 106 Carbon Dioxide 27 BUN 9 Creatinine 1.19 Calcium 9.5 All other labs normal. Imaging Chest x-ray: report reviewed and image reviewed Assessment and Plan (1) Pneumothorax: Qualifiers: Pneumothorax type: spontaneous, primary Qualified Code(s): J93.11 - Primary spontaneous pneumothorax Status: Acute Patient is a 31-year-old male with a past medical history significant for tobacco abuse (1 pack/day since age of 14) who presents to the hospital with complaints of shortness of breath and was found to have a moderate sized right pneumothorax. Right pneumothorax: Repeat chest x-ray was performed this morning which showed a larger increase in right pneumothorax. Patient will need a chest tube placed by ER physician or IR. This was communicated to the hospitalist Patient educated on possible need for chest tube given his collapsed lung if chest x-ray shows worsening of pneumothorax. Agreeable to plan. Given this is his first occurrence of spontaneous pneumothorax, no indication of surgery is required at this time. Continue with supplemental O2 as needed Encourage pulmonary toileting, incentive spirometer, cough and deep breathing Patient should be ambulating frequently up to 3-4 times daily. OOB to recliner chair with all meals Right chest tube should be placed to -20 cm continuous low wall suction Thoracic surgery will continue to follow for chest tube management Case discussed with Dr. Collazo. Thank you for this consult. We will continue to follow along for chest tube management Procedures Date of Service Date of Service: 05/12/21
--- NOTE | 2021-05-12 09:27 | PC.NURSE ---
Pt has had his repeat chest x-ray which reveals a worsening pneumothorax. Pt has been evaluated by thoracic surgery and pt will need a chest tube. Pt is now NPO. Otherwise pt is otherwise resting comfortably and does not appear to be in any respiratory distress. .
--- NOTE | 2021-05-12 10:31 | PC.NURSE ---
Report given to Eliz in SS.
[2021-05-12 10:37] LABS: INTERNATIONAL NORM RATIO 1.1 (0.9-1.1); Prothrombin Time 12.3 SEC (9.9-13.0)
[2021-05-12 10:40] LABS: Partial Thromboplastin Time 32.5 SEC (24.1-38.0)
--- NOTE | 2021-05-12 12:43 | PC.NURSE ---
IR RN at the bedside to take pt for his chest tube. Report given. Pt remains in no distress.
--- NOTE | 2021-05-12 13:08 | MHC.CM.PN ---
Attempted to meet with patient in regards to d/c planning. Patient currently not in the room. Will attempt to meet again. Continue to monitor for d/c needs.
--- NOTE | 2021-05-12 13:51 | HO.PM.IMPN ---
Subjective Subjective Date of Service: 05/12/21 Interval History: No dyspnea Has pleuritic pain with deep breathing PTX larger on repeat CXR Review of Systems Review of Systems: Yes all other systems are reviewed and are negative Physical Exam Vital Signs: Vital Signs: Last Vital Signs Temp 97.5 F 05/12/21 10:03 Pulse 54 05/12/21 10:03 Resp 21 H 05/12/21 10:03 BP 128/75 05/12/21 10:03 Pulse Ox 100 05/12/21 10:03 Body Mass Index 22.4 Gen: in no acute distress HEENT: sclera anicteric, moist mucus membranes Neck: supple Lungs: diminished on R Heart: regular rate and rhythm, no murmurs Abd: soft, non-tender, non-distended Ext: no edema Skin: warm/well-perfused Neuro: alert and oriented x3, no focal findings Psych: appropriate affect Objective Data Active Medications Acetaminophen (Acetaminophen 325 Mg Tablet) 650 mg PO Q6H PRN PRN Reason: Pain, Mild (Pain Scale 1-3) Docusate Sodium (Docusate Sodium 100 Mg Capsule) 100 mg PO DAILY PRN PRN Reason: Constipation Ondansetron HCl (Ondansetron Hcl 4 Mg/2 Ml Vial) 4 mg IVPUSH Q8H PRN PRN Reason: Nausea and Vomiting Oxycodone HCl (Oxycodone Hcl Immed Release 5 Mg Tablet) 5 mg PO Q6H PRN PRN Reason: Pain, Severe (Pain Scale 7-10) Pharmacy Consult (Consult Rx Perform Med Rec) 1 each MISCELLANE ONCE PRN PRN Reason: Consult order Sodium Chloride (0.9 % Sodium Chloride Flush 3 Ml Syringe) 3 ml [facility]USH [facility] Last Admin: 05/12/21 09:58 Dose: Not Given Documented by: JAZ Non-Admin Reason: Med Not Available Labs CBC & Chem 7: 05/11/21 20:24 05/11/21 20:24 Labs: Laboratory Results - last 24 hr 05/11/21 05/11/21 05/11/21 20:24 20:24 20:24 MCV 88.6 MCH 30.2 MCHC 34.1 RDW 12.3 Plt Count 298 MPV 9.1 L Immature Gran % (Auto) 0.3 Neut % (Auto) 74.3 H Lymph % (Auto) 19.7 L [place] % (Auto) 5.2 Eos % (Auto) 0.1 Baso % (Auto) 0.4 Lymph # (Auto) 2.2 [place] # (Auto) 0.6 Eos # (Auto) 0.0 Baso # (Auto) 0.0 Abs Immat Gran (auto) 0.03 Absolute Neuts (auto) 8.1 Absolute Nucleated RBC 0.000 Nucleated RBC % (auto) 0.0 PT INR APTT Anion Gap 12 Estim Creat Clear Calc 94.3 Estimated GFR > 60 Random Glucose 108 Calcium 9.5 Troponin I High Sens 10.0 COVID-19 ([facility]) COVID-19 Clin Com 05/11/21 05/12/21 21:28 09:58 MCV MCH MCHC RDW Plt Count MPV Immature Gran % (Auto) Neut % (Auto) Lymph % (Auto) [place] % (Auto) Eos % (Auto) Baso % (Auto) Lymph # (Auto) [place] # (Auto) Eos # (Auto) Baso # (Auto) Abs Immat Gran (auto) Absolute Neuts (auto) Absolute Nucleated RBC Nucleated RBC % (auto) PT 12.3 INR 1.1 APTT 32.5 Anion Gap Estim Creat Clear Calc Estimated GFR Random Glucose Calcium Troponin I High Sens COVID-19 ([facility]) Negative COVID-19 Clin Com See Note ITS Impressions Chest X-Ray 05/11/21 20:13 IMPRESSION: Moderate-sized right apical pneumothorax of approximately 25%. No acute focal airspace disease with minimal linear atelectasis in the left base. This critical result was discussed with Dr. Martin at 05/11/2021 9:09 PM and it was ascertained that the content and urgency of the report was understood at the time of direct communication. Chest X-Ray 05/12/21 07:54 IMPRESSION: Moderate right pneumothorax. This is increased from yesterday's exam. Findings will be communicated by the [facility] work flow personal attendant Jessica Prajapati on 05/12/2021 Assessment and Plan (1) Pneumothorax: Status: Acute Assessment and Plan: hospital d#2 31yo M with hx tobacco abuse presenting with acute dyspnea, found to have spontaneous PTX # PTX - NPO for tube thoracostomy placement today - Thoracic Surgery to follow for chest tube management, -20 cm continuous LWS, repeat CXR in am # tobacco abuse - NRT Quality Stroke Does the patient have a stroke diagnosis?: No VTE Prior VTE?: No VTE Risk Level:: Medical - low VTE Device Contraindication: Treatment Not Indicated VTE Drug Contraindication: Treatment Not Indicated
--- NOTE | 2021-05-12 14:05 | HO.RADPN ---
RADIOLOGY Narrative Narrative: 10.2 fr right chest tube placed. Right lung almost completely reinflated. cxr pending.
[2021-05-12] MEDS: Lidocaine HCl 1 % MPF 5 ML VIAL 10 ML SUBCUT (14:15)
--- NOTE | 2021-05-12 14:33 | PC.NURSE ---
Pt is back from IR with a right sided chest tube. Pt was given 2mg versed and 75mcg of fentanyl during the procedure. Pt is awake, alert and oriented and is c/o some soreness in the right chest area at the incision site. No leaks noted. Pt does not appear to be in any respiratory distress.
[2021-05-12] MEDS: Nicotine 14 MG PATCH.TD24 TRANSDERMA (14:42)
[2021-05-12] MEDS: oxyCODONE HCl Immed Release 5 MG TABLET PO ×2 (14:45→23:33)
[2021-05-12] MEDS: Acetaminophen 325 MG TABLET 650 MG PO ×2 (17:47→23:35)
[2021-05-13 04:00] VITALS: BP 136/82; PULSE 77; RESP 20; TEMP 37; O2SAT 96
[2021-05-13 05:59] LABS: MANUAL DIFF FLAG NO
[2021-05-13 06:08] LABS: Basophils Percent Auto 0.5 % (0-2); Eosinophils Absolute Auto 0.1 X10*3/uL (0.0-0.4); Eosinophils Percent Auto 1.3 % (0-4); Hemoglobin 13.4 g/dl (14.0-18.0); Imm Gran Abs Auto 0.02 X10*3/uL (0.00-0.03); Imm Gran Pct Auto 0.2 % (0.0-0.4); Lymphocytes Absolute Auto 2.8 X10*3/uL (1.2-4.9); Lymphocytes Percent Auto 32.5 % (20-40); Mean Corpuscular HGB Conc 33.5 g/dl (31.0-36.0); Mean Corpuscular Volume 89.5 fL (80-98); Mean Platelet Volume 9.4 fL (9.4-12.4); Monocytes Absolute Auto 0.8 X10*3/uL (0.1-1.2); Monocytes Percent Auto 9.2 % (2-11); Neutrophils Absolute Auto 4.9 X10*3/uL (2.0-8.3); Neutrophils Percent Auto 56.3 % (45-73); Platelet Count 304 X10*3/uL (160-400); Red Blood Count 4.47 X10*6/uL (4.60-5.80); Red Cell Distribution Width 12.2 % (11.0-16.0); White Blood Count 8.6 X10*3/uL (4.8-10.8)
[2021-05-13 06:35] LABS: Anion Gap 11 (12-20); Blood Urea Nitrogen 8 mg/dL (9-16); Calcium 9.4 mg/dL (8.4-10.2); Carbon Dioxide 29 mmol/L (22-29); Chloride 104 mmol/L (96-108); Estimated Glomerular Filt Rate > 60; Glucose Random 90 mg/dL (60-115); Potassium 4.2 mmol/L (3.3-5.1); Sodium 140 mmol/L (135-145)
[2021-05-13 07:46] VITALS: BP 99/65; PULSE 53; RESP 18; TEMP 37.1; O2SAT 99
[2021-05-13] MEDS: Nicotine 14 MG PATCH.TD24 TRANSDERMA (10:15)
[2021-05-13] MEDS: 0.9 % Sodium Chloride Flush 3 ML SYRINGE IVFLUSH ×2 (10:15→22:49)
[2021-05-13] MEDS: oxyCODONE HCl Immed Release 5 MG TABLET PO ×2 (10:17→18:20)
[2021-05-13] MEDS: Acetaminophen 325 MG TABLET 650 MG PO ×2 (10:17→18:20)
--- NOTE | 2021-05-13 10:24 | MHC.CM.PN ---
CM ATTEMPTED TO MEET WITH PT WHO WAS SLEEPING. CM TO RETURN.
[2021-05-13 11:07] VITALS: BP 114/73; PULSE 59; RESP 18; TEMP 36.7; O2SAT 98
[2021-05-13 15:48] VITALS: BP 113/75; PULSE 50; RESP 14; TEMP 37.1; O2SAT 99
--- NOTE | 2021-05-13 15:50 | HO.PM.IMPN ---
Subjective Subjective Date of Service: 05/13/21 Interval History: Seen and examined this morning Follow-up for pneumothorax Reporting pain around chest tube site, no shortness of breath Review of Systems Review of Systems: Yes all other systems are reviewed and are negative Constitutional Constitutional: Denies chills and Denies fever(s) Respiratory Respiratory: Denies cough Gastrointestinal Gastrointestinal: Denies abdominal pain Physical Exam Vital Signs: Vital Signs: Last Vital Signs Temp 98.1 F 05/13/21 11:07 Pulse 59 05/13/21 11:07 Resp 18 05/13/21 11:07 BP 114/73 05/13/21 11:07 Pulse Ox 98 05/13/21 11:07 Body Mass Index 22.4 Const: General: comfortable, alert and awake Nutritional Appearance: well nourished Orientation/consciousness: patient oriented x3 HENMT: Head: Yes normocephalic and Yes atraumatic Eyes: Sclerae: sclerae normal Resp: Other: diminished breath sounds Effort & Inspection: normal respiratory effort and no respiratory distress Cardio: Rate: regular rate Rhythm: regular rhythm GI: Palpation (GI): Soft to palpation and nontender Neuro: General: patient oriented x3 Cranial nerves: Yes CN's II-XII intact bilaterally and Yes Bilaterally intact EOM present Objective Data Active Medications Acetaminophen (Acetaminophen 325 Mg Tablet) 650 mg PO Q6H PRN PRN Reason: Pain, Mild (Pain Scale 1-3) Last Admin: 05/13/21 10:17 Dose: 650 mg Documented by: FANNY Docusate Sodium (Docusate Sodium 100 Mg Capsule) 100 mg PO DAILY PRN PRN Reason: Constipation Nicotine (Nicotine 14 Mg Patch.Td24) 14 mg TRANSDERMA DAILY LENA Last Admin: 05/13/21 10:15 Dose: 14 mg Documented by: FANNY Ondansetron HCl (Ondansetron Hcl 4 Mg/2 Ml Vial) 4 mg IVPUSH Q8H PRN PRN Reason: Nausea and Vomiting Oxycodone HCl (Oxycodone Hcl Immed Release 5 Mg Tablet) 5 mg PO Q6H PRN PRN Reason: Pain, Severe (Pain Scale 7-10) Last Admin: 05/13/21 10:17 Dose: 5 mg Documented by: FANNY Pharmacy Consult (Consult Rx Perform Med Rec) 1 each MISCELLANE ONCE PRN PRN Reason: Consult order Sodium Chloride (0.9 % Sodium Chloride Flush 3 Ml Syringe) 3 ml IVFLUSH QSHIFT LENA Last Admin: 05/13/21 10:15 Dose: 3 ml Documented by: FANNY Labs CBC & Chem 7: 05/13/21 05:30 05/13/21 05:30 Labs: Laboratory Results - last 24 hr 05/13/21 05/13/21 05:30 05:30 MCV 89.5 MCH 30.0 MCHC 33.5 RDW 12.2 Plt Count 304 MPV 9.4 Immature Gran % (Auto) 0.2 Neut % (Auto) 56.3 Lymph % (Auto) 32.5 [place] % (Auto) 9.2 Eos % (Auto) 1.3 Baso % (Auto) 0.5 Lymph # (Auto) 2.8 [place] # (Auto) 0.8 Eos # (Auto) 0.1 Baso # (Auto) 0.0 Abs Immat Gran (auto) 0.02 Absolute Neuts (auto) 4.9 Absolute Nucleated RBC 0.000 Nucleated RBC % (auto) 0.0 Anion Gap 11 L Estim Creat Clear Calc 102.0 Estimated GFR > 60 Random Glucose 90 Calcium 9.4 Assessment and Plan (1) Pneumothorax: Status: Acute Assessment and Plan: This is a 31yo M with hx tobacco abuse presenting with acute dyspnea, found to have spontaneous PTX PTX s/p right chest tube placement fu cxr this am unchanged Thoracic Surgery to follow for chest tube management, -20 cm continuous LWS, repeat CXR in am pain management, IS tobacco abuse - NRT dvt ppx - mechanical devices attending: dr. salazar Quality Stroke Does the patient have a stroke diagnosis?: No VTE Prior VTE?: No VTE Risk Level:: Medical - low VTE Device Contraindication: Treatment Not Indicated VTE Drug Contraindication: Treatment Not Indicated
--- NOTE | 2021-05-13 16:28 | MHC.CM.PN ---
PT REPORTS HE LIVES AT HOME WITH HIS FATHER AND IS INDEPENDENT WITH ALL CARE PT DENIES USE OF DME OR IN HOME SERVICES PT HAS NO PCP AND REQUESTS TO BE SET UP AT [facility] WHERE HE HAS GONE IN THE PAST CURRENT DC PLAN IS HOME WITH NO SERVICES PT TO ARRANGE TRANSPORT
--- NOTE | 2021-05-13 18:25 | PC.NURSE ---
NO CHEST TUBE DRAINAGE NOTED [id number]. PAIN TO CHEST TUBE SITE TREATED WITH PRN MEDICATIONS WITH POSITIVE EFFECT.
--- NOTE | 2021-05-13 19:08 | PM.PNTS ---
Subjective Subjective Date of Service: 05/13/21 Interval history: Patient has right-sided chest tube has remained on -20 low wall suction for right-sided pneumothorax. He states his shortness of breath has greatly improved however does admit to some soreness around the chest tube site. Physical Exam Vital Signs: Vital Signs: Last Vital Signs Temp 98.7 F 05/13/21 15:48 Pulse 50 05/13/21 15:48 Resp 14 05/13/21 15:48 BP 113/75 05/13/21 15:48 Pulse Ox 99 05/13/21 15:48 Body Mass Index 22.4 Const: General: comfortable and no acute distress Orientation/consciousness: patient oriented x3 HENMT: Other: Trachea midline with no evidence of subcutaneous emphysema long neck Chest: Other: Right-sided pigtail catheter remains indwelling and secure with dressing clean dry and intact. Chest tube attached to -20 low wall suction. There is an intermittent +1 air leak with forceful cough. Minimal serosanguineous fluid output overnight. Breath sounds are clear to auscultation bilaterally with no adventitious sounds is wheezes or rhonchi. Cardio: Other: Regular rate and rhythm with S1-S2 appreciated. No murmurs rubs or gallops heard GI: Other: Soft nontender to palpation with normal bowel sounds Neuro: General: patient oriented x3 Procedures Date of Service Date of Service: 05/13/21 Progress Note: A&P Assessment and plan (1) Pneumothorax: Status: Acute Assessment and Plan: Patient is a 31-year-old male who sustained a spontaneous pneumothorax after ingesting cocaine and smoking marijuana. Morning chest x-ray reveals residual right-sided small apical pneumothorax. Chest tube to remain on -20 suction this evening and then be placed on water seal tonight at midnight. Follow-up with chest x-ray in a.m.. If chest x-ray remains stable and no detectable air leak will plan for chest tube removal tomorrow. Fall Risk Details Current Medications: Current Medications Acetaminophen (Acetaminophen 325 Mg Tablet) 650 mg PO Q6H PRN PRN Reason: Pain, Mild (Pain Scale 1-3) Last Admin: 05/13/21 18:20 Dose: 650 mg Documented by: Docusate Sodium (Docusate Sodium 100 Mg Capsule) 100 mg PO DAILY PRN PRN Reason: Constipation Nicotine (Nicotine 14 Mg Patch.Td24) 14 mg TRANSDERMA DAILY [facility] Last Admin: 05/13/21 10:15 Dose: 14 mg Documented by: Ondansetron HCl (Ondansetron Hcl 4 Mg/2 Ml Vial) 4 mg IVPUSH Q8H PRN PRN Reason: Nausea and Vomiting Oxycodone HCl (Oxycodone Hcl Immed Release 5 Mg Tablet) 5 mg PO Q6H PRN PRN Reason: Pain, Severe (Pain Scale 7-10) Last Admin: 05/13/21 18:20 Dose: 5 mg Documented by: Pharmacy Consult (Consult Rx Perform Med Rec) 1 each MISCELLANE ONCE PRN PRN Reason: Consult order Sodium Chloride (0.9 % Sodium Chloride Flush 3 Ml Syringe) [address] [facility] Last Admin: 05/13/21 17:16 Dose: Not Given Documented by: Time Spent With Patient Time: Total time spent is greater than 50% in coordination of care (as documented) at patient's floor/unit and/or counseling patient: Time with patient: 15 - 24 minutes Quality Stroke Does the patient have a stroke diagnosis?: No VTE Prior VTE?: No VTE Risk Level:: Medical - low VTE Device Contraindication: Treatment Not Indicated VTE Drug Contraindication: Treatment Not Indicated
[2021-05-13 20:00] VITALS: BP 121/70; PULSE 60; RESP 16; TEMP 37.1; O2SAT 99
[2021-05-14] VITALS (7 sets, daily range): BP systolic 101–137; BP diastolic 63–100; PULSE 61–115; RESP 18–19; TEMP 36.3–37.2; O2SAT 94–100
[2021-05-14] MEDS: oxyCODONE HCl Immed Release 5 MG TABLET PO ×3 (01:36→18:23)
--- NOTE | 2021-05-14 09:41 | HO.PM.IMPN ---
Subjective Subjective Date of Service: 05/14/21 Interval History: seen and examined pain less compared to yesterday still hurts with breathing/coughing Review of Systems General - no fevers or chills Cardiovascular - no chest pain Respiratory - pleuritic pain with movement Abdominal- no abdominal pain, nausea, vomiting, diarrhea Physical Exam Vital Signs: Vital Signs: Last Vital Signs Temp 97.3 F 05/14/21 08:00 Pulse 71 05/14/21 08:00 Resp 18 05/14/21 08:00 BP 101/63 05/14/21 08:00 Pulse Ox 99 05/14/21 08:00 Body Mass Index 22.4 Const: Other: General - no acute distress, appears comfortable Cardiovascular - regular rate and rhythm, S1-S2 Lungs - dim sounds on R Abdomen - soft, nontender, no rebound or guarding Extremities - no edema bilaterally Neuro - awake and alert, no focal deficits Objective Data Active Medications Acetaminophen (Acetaminophen 325 Mg Tablet) 650 mg PO Q6H PRN PRN Reason: Pain, Mild (Pain Scale 1-3) Last Admin: 05/13/21 18:20 Dose: 650 mg Documented by: FANNY Docusate Sodium (Docusate Sodium 100 Mg Capsule) 100 mg PO DAILY PRN PRN Reason: Constipation Nicotine (Nicotine 14 Mg Patch.Td24) 14 mg TRANSDERMA DAILY [facility] Last Admin: 05/13/21 10:15 Dose: 14 mg Documented by: FANNY Ondansetron HCl (Ondansetron Hcl 4 Mg/2 Ml Vial) 4 mg IVPUSH Q8H PRN PRN Reason: Nausea and Vomiting Oxycodone HCl (Oxycodone Hcl Immed Release 5 Mg Tablet) 5 mg PO Q6H PRN PRN Reason: Pain, Severe (Pain Scale 7-10) Last Admin: 05/14/21 01:36 Dose: 5 mg Documented by: CARL Pharmacy Consult (Consult Rx Perform Med Rec) 1 each MISCELLANE ONCE PRN PRN Reason: Consult order Sodium Chloride (0.9 % Sodium Chloride Flush 3 Ml Syringe) 3 ml IVFLUSH QSHIFT [facility] Last Admin: 05/13/21 22:49 Dose: 3 ml Documented by: CARL Labs CBC & Chem 7: 05/13/21 05:30 10/07/21 05:30 Assessment and Plan (1) Pneumothorax: Status: Acute Assessment and Plan: This is a 31yo M with hx tobacco abuse presenting with acute dyspnea, found to have spontaneous PTX PTX increased after clamping over night placed back on 20cm this AM by thoracic cxr tomorrow tobacco abuse - NRT dvt ppx - mechanical devices Quality Stroke Does the patient have a stroke diagnosis?: No VTE Prior VTE?: No VTE Risk Level:: Medical - low VTE Device Contraindication: Treatment Not Indicated VTE Drug Contraindication: Treatment Not Indicated
[2021-05-14] MEDS: 0.9 % Sodium Chloride Flush 3 ML SYRINGE IVFLUSH ×2 (11:04→16:47)
[2021-05-14] MEDS: Nicotine 14 MG PATCH.TD24 TRANSDERMA (11:04)
[2021-05-14] MEDS: ondansetron HCL 4 MG/2 ML VIAL IVPUSH (11:06)
--- NOTE | 2021-05-14 18:05 | P.PNTS_ITS ---
Subjective Subjective Date of Service: 05/14/21 Interval history: Patient was seen and examined this afternoon. Patient's chest tube had remained on water seal overnight. Patient informs me that this morning after eating breakfast he became nauseous and vomited. Afterwards patient state s that he did notice some increased shortness of breath and chest pressure along the right side of his chest. Morning chest x-ray revealed an increase of his right-sided pneumothorax with approximately 4 cm of pleural separation. His chest tube was placed back to -20 low wall suction and patient states that his shortness of breath has improved since. He denies any concerning symptoms such as fever, chills, hemoptysis and all other 12 point of review of systems is negative. Physical Exam Vital Signs: Vital Signs: Last Vital Signs Temp 98.7 F 05/14/21 16:00 Pulse 76 05/14/21 16:00 Resp 19 05/14/21 16:00 BP 137/100 H 05/14/21 16:00 Pulse Ox 96 05/14/21 16:00 Body Mass Index 22.4 Const: Other: General - no acute distress, appears comfortable Cardiovascular - regular rate and rhythm, S1-S2 Lungs - dim sounds on R Abdomen - soft, nontender, no rebound or guarding Extremities - no edema bilaterally Neuro - awake and alert, no focal deficits General: cooperative, healthy appearing, comfortable, no acute distress, alert and awake Nutritional Appearance: well nourished and thin Orientation/consciousness: oriented to person, oriented to place, oriented to time and patient oriented x3 Limitations: no limitations HENMT: Other: Trachea midline with no evidence of subcutaneous emphysema long neck Head: Yes normal to inspection, Yes normocephalic and Yes atraumatic Ears: external ears normal General nose exam: Normal external nose present Mouth: Normal oral and palatal mucosa present and oropharynx normal Throat: Yes posterior oropharynx normal Eyes: General: appearance normal, both eyes and all related structures Visual Heck: normal visual heck by confrontation Alignment and Position: alignment normal Periorbital: periorbital findings normal Conjunctivae: conjunctivae normal Sclerae: sclerae normal Pupils: Equal, round and reactive pupils present and Pupil accommodation reflex normal EOM: EOMs intact bilaterally Neck: Other: supple Neck: Yes normal visual inspection, Yes full ROM, Yes no lymphadenopathy, Yes trachea midline, Yes supple, No lymphadenopathy, No tender and No tracheal deviation Lymphatic: no lymphadenopathy noted Chest: Other: Right-sided pigtail catheter remains indwelling and secure with dressing clean dry and intact. Chest tube attached to -20 low wall suction. There is an intermittent +1 air leak with forceful cough. Minimal serosanguineous fluid output overnight. Breath sounds are clear to auscultation bilaterally with no adventitious sounds is wheezes or rhonchi. Chest palpation & inspection: normal inspection of the chest and no crepitus Resp: Other: diminished breath sounds Effort & Inspection: normal respiratory effort, able to speak in complete sentences, normal respiratory pattern, no audible wheezes, no cough, no pursed lip breathing, no respiratory distress, no stridor, not tachypneic and no tracheal deviation Auscultation: clear to auscultation bilaterally Cardio: Other: Regular rate and rhythm with S1-S2 appreciated. No murmurs rubs or gallops heard Jugular venous distension: no JVD Palpation: normal PMI Rate: regular rate Rhythm: regular rhythm Heart sounds: S1 normal heart sound present, S2 normal heart sound present, no click, no gallops, no murmurs and no rubs GI: Other: Soft nontender to palpation with normal bowel sounds Inspection: Yes normal to inspection Palpation (GI): Soft to palpation, nontender and No hepatosplenomegaly present Auscultation: normal bowel sounds : General: Yes no CVA tenderness Back/Spine/Pelvis: Back: no CVA tenderness Thoracic/Lumbar Spine: thoracic and lumbar spine normal to inspection Skin: General skin exam: no rashes or lesions noted and dry skin Lesions: no lesions Rashes: no rashes Neuro: General: oriented to person, oriented to place, oriented to time, patient oriented x3 and gait normal Cranial nerves: Yes CN's II-XII intact bilaterally, Yes Equal, round and reactive pupils present and Yes Bilaterally intact EOM present Cognition (Neuro): normal cognition Motor exam (neuro): 5/5 motor strength present throughout Sensory Exam: No Sensory deficit (Neuro) Extrem: General: Yes normal to inspection, Yes full ROM, Yes capillary refill normal, Yes no clubbing, cyanosis or edema, Yes no pedal edema and Yes normal gait Psych: Appearance: grossly normal and well kempt Mental Status: mental status grossly normal Speech and movement: Normal speech and movement present and Clear speech present Affect: normal affect Attitude: cooperative Thought process: Normal thought process present Thought content: Normal thought content present Procedures Date of Service Date of Service: 05/14/21 Progress Note: A&P Assessment and plan (1) Pneumothorax: Status: Acute Assessment and Plan: Patient is a 31-year-old male who sustained a spontaneous right-sided pneumothorax after ingestion of cocaine, marijuana with a past medical history of cigarette smoking. Morning chest x-ray revealed increase of right-sided pneumothorax with approximately 4 cm of pleural separation while on water-seal trial. Chest tube placed back to -20 low wall suction this morning. Chest tubes remain on -20 low wall suction overnight. Patient should be OOB in chair for all meals. PATIENT SHOULD BE AMBULATING HALLWAY WHILE ON WATER SEAL MINIMUM OF 3-4 TIMES PER DAY. Nursing made aware of ambulation requirements. Incentive spirometry. Chest x-ray for tomorrow a.m. Fall Risk Details Current Medications: Current Medications Acetaminophen (Acetaminophen 325 Mg Tablet) 650 mg PO Q6H PRN PRN Reason: Pain, Mild (Pain Scale 1-3) Last Admin: 05/13/21 18:20 Dose: 650 mg Documented by: Docusate Sodium (Docusate Sodium 100 Mg Capsule) 100 mg PO DAILY PRN PRN Reason: Constipation Nicotine (Nicotine 14 Mg Patch.Td24) 14 mg TRANSDERMA DAILY [facility] Last Admin: 05/14/21 11:04 Dose: 14 mg Documented by: Ondansetron HCl (Ondansetron Hcl 4 Mg/2 Ml Vial) 4 mg IVPUSH Q8H PRN PRN Reason: Nausea and Vomiting Last Admin: 05/14/21 11:06 Dose: 4 mg Documented by: Oxycodone HCl (Oxycodone Hcl Immed Release 5 Mg Tablet) 5 mg PO Q6H PRN PRN Reason: Pain, Severe (Pain Scale 7-10) Last Admin: 05/14/21 11:04 Dose: 5 mg Documented by: Pharmacy Consult (Consult Rx Perform Med Rec) 1 each MISCELLANE ONCE PRN PRN Reason: Consult order Sodium Chloride (0.9 % Sodium Chloride Flush 3 Ml Syringe) 3 ml IVFLUSH QSHIFT [facility] Last Admin: 05/14/21 16:47 Dose: 3 ml Documented by: Time Spent With Patient Time: Total time spent is greater than 50% in coordination of care (as documented) at patient's floor/unit and/or counseling patient: Time with patient: 15 - 24 minutes Quality Stroke Does the patient have a stroke diagnosis?: No VTE Prior VTE?: No VTE Risk Level:: Medical - low VTE Device Contraindication: Treatment Not Indicated VTE Drug Contraindication: Treatment Not Indicated
[2021-05-15] VITALS (7 sets, daily range): BP systolic 100–126; BP diastolic 61–84; PULSE 35–71; RESP 14–20; TEMP 36.1–37.1; O2SAT 98–100
--- NOTE | 2021-05-15 | ECG_ITS ---
Test Reason : bradycardia Blood Pressure : / mmHG Vent. Rate : 050 BPM Atrial Rate : 050 BPM P-R Int : 194 ms QRS Dur : 108 ms QT Int : 408 ms P-R-T Axes : 031 070 034 degrees QTc Int : 371 ms Sinus bradycardia RSR' or QR pattern in V1 suggests right ventricular conduction delay ST elevation, consider early repolarization, pericarditis, or injury Abnormal ECG No previous ECGs available Referred By: Jose J Soliman Electronically Signed By:DORINDA CLAY MD
[2021-05-15] MEDS: Acetaminophen 325 MG TABLET 650 MG PO ×2 (00:54→17:17)
--- NOTE | 2021-05-15 06:18 | PC.NURSE ---
Addendum entered by Gabi Constantino RN 05/15/21 06:19: pt hr sustaining 40-45. MD notified, rn asked for cardio consult but no new orders at this time. Original Note: pt hr dropped and sustained around 42bpm at 0045. MD notified. bp 115/77, 98% ra, rr 17. No complaints of dizziness or chest pain during this time. EKG ordered. No other orders at that time.
[2021-05-15] MEDS: Nicotine 14 MG PATCH.TD24 TRANSDERMA (09:42)
[2021-05-15] MEDS: 0.9 % Sodium Chloride Flush 3 ML SYRINGE IVFLUSH ×2 (09:42→17:18)
--- NOTE | 2021-05-15 11:28 | HO.PM.IMPN ---
Subjective Subjective Date of Service: 05/15/21 <ARTHUR Queen - Last Filed: 05/15/21 11:32> 05/15/21 <Stefano Montero MD - Last Filed: 05/15/21 12:31> Interval History: seen and examined this morning Follow-up for right pneumothorax still having some pain at chest tube site no significant shortness of breath Noted to be bradycardic this morning. Patient asymptomatic <ARTHUR Queen - Last Filed: 05/15/21 11:32> Review of Systems Review of Systems: Yes all other systems are reviewed and are negative <ARTHUR Queen - Last Filed: 05/15/21 11:32> Constitutional Constitutional: Denies chills and Denies fever(s) <ARTHUR Queen - Last Filed: 05/15/21 11:32> Respiratory Respiratory: Denies cough <ARTHUR Queen Last Filed: 05/15/21 11:32> Gastrointestinal Gastrointestinal: Denies abdominal pain <ARTHUR Queen - Last Filed: 05/15/21 11:32> Physical Exam Vital Signs: Vital Signs: Last Vital Signs Temp 97.2 F 05/15/21 08:00 Pulse 35 L 05/15/21 10:07 Resp 14 05/15/21 08:00 BP 109/61 05/15/21 08:00 Pulse Ox 99 05/15/21 08:00 Body Mass Index 22.4 <ARTHUR Queen Last Filed: 05/15/21 11:32> Const: General: comfortable, alert and awake <ARTHUR Queen - Last Filed: 05/15/21 11:32> Nutritional Appearance: well nourished <ARTHUR Queen Last Filed: 05/15/21 11:32> Orientation/consciousness: patient oriented x3 <ARTHUR Queen Last Filed: 05/15/21 11:32> HENMT: Head: Yes normocephalic and Yes atraumatic <ARTHUR Queen Last Filed: 05/15/21 11:32> Eyes: Sclerae: sclerae normal <ARTHUR Queen - Last Filed: 05/15/21 11:32> Resp: Other: diminished breath sounds <ARTHUR Queen Last Filed: 05/15/21 11:32> Effort & Inspection: normal respiratory effort and no respiratory distress <ARTHUR Queen Last Filed: 05/15/21 11:32> Cardio: Rate: regular rate <ARTHUR Queen Last Filed: 05/15/21 11:32> Rhythm: regular rhythm <ARTHUR Queen - Last Filed: 05/15/21 11:32> GI: Palpation (GI): Soft to palpation and nontender <ARTHUR Queen - Last Filed: 05/15/21 11:32> Neuro: General: patient oriented x3 <ARTHUR Queen Last Filed: 05/15/21 11:32> Cranial nerves: Yes CN's II-XII intact bilaterally and Yes Bilaterally intact EOM present <ARTHUR Queen Last Filed: 05/15/21 11:32> Objective Data Active Medications Acetaminophen (Acetaminophen 325 Mg Tablet) 650 mg PO Q6H PRN PRN Reason: Pain, Mild (Pain Scale 1-3) Last Admin: 05/15/21 00:54 Dose: 650 mg Documented by: DI Docusate Sodium (Docusate Sodium 100 Mg Capsule) 100 mg PO DAILY PRN PRN Reason: Constipation Nicotine (Nicotine 14 Mg Patch.Td24) 14 mg TRANSDERMA DAILY [facility] Last Admin: 05/15/21 09:42 Dose: 14 mg Documented by: CHYNA Ondansetron HCl (Ondansetron Hcl 4 Mg/2 Ml Vial) 4 mg IVPUSH Q8H PRN PRN Reason: Nausea and Vomiting Last Admin: 05/14/21 11:06 Dose: 4 mg Documented by: CHYNA Oxycodone HCl (Oxycodone Hcl Immed Release 5 Mg Tablet) 5 mg PO Q6H PRN PRN Reason: Pain, Severe (Pain Scale 7-10) Last Admin: 05/14/21 18:23 Dose: 5 mg Documented by: CHYNA Pharmacy Consult (Consult Rx Perform Med Rec) 1 each MISCELLANE ONCE PRN PRN Reason: Consult order Sodium Chloride (0.9 % Sodium Chloride Flush 3 Ml Syringe) 3 ml IVFLUSH QSHIFT [facility] Last Admin: 05/15/21 09:42 Dose: 3 ml Documented by: CHYNA <ARTHUR Queen - Last Filed: 05/15/21 11:32> Labs CBC & Chem 7: : 05/13/21 05:30 05/13/21 05:30 <ARTHUR Queen - Last Filed: 05/15/21 11:32> Assessment and Plan (1) Pneumothorax: Status: Acute <ARTHUR Queen - Last Filed: 05/15/21 11:32> Assessment and Plan: This is a 31yo M with hx tobacco abuse presenting with acute dyspnea, found to have spontaneous PTX PTX s/p right chest tube placement improved this am cxr tomorrow thoracic following pain management, IS Bradycardia EKG showing sinus higinio, no heart block Patient asymptomatic Continue tele monitoring, no intervention required at this time tobacco abuse - NRT dvt ppx - mechanical devices attending: dr. montero <ARTHUR Queen - Last Filed: 05/15/21 11:32> This is a 31yo M with hx tobacco abuse presenting with acute dyspnea, found to have spontaneous PTX PTX s/p right chest tube placement improved this am cxr tomorrow thoracic following pain management, IS Bradycardia EKG showing sinus higinio, no heart block Patient asymptomatic Continue tele monitoring, no intervention required at this time tobacco abuse - NRT dvt ppx - mechanical devices attending: dr. montero Patient and examined and discussed all finding with ARTHUR and I agree with above. --MD Joaquin <Stefano Montero MD - Last Filed: 05/15/21 12:31> Quality Stroke Does the patient have a stroke diagnosis?: No <ARTHUR Queen - Last Filed: 05/15/21 11:32> VTE Prior VTE?: No <ARTHUR Queen Last Filed: 05/15/21 11:32> VTE Risk Level:: Medical - low <ARTHUR Queen Last Filed: 05/15/21 11:32> VTE Device Contraindication: Treatment Not Indicated <ARTHUR Queen - Last Filed: 05/15/21 11:32> VTE Drug Contraindication: Treatment Not Indicated <ARTHUR uQeen - Last Filed: 05/15/21 11:32>
--- NOTE | 2021-05-15 15:21 | P.PNTS_ITS ---
Subjective Subjective Date of Service: 05/15/21 Interval history: Patient reports no shortness of breath, cough, fever or chills. He informs me that he did ambulate in hallway on water-seal twice yesterday. Spoke with nursing about the importance of patient getting a incentive spirometry as it was ordered 2 days ago. Nursing assures me she will get the incentive spirometry going. Physical Exam Vital Signs: Vital Signs: Last Vital Signs Temp 96.9 F 05/15/21 11:35 Pulse 59 05/15/21 11:35 Resp 14 05/15/21 11:35 BP 120/66 05/15/21 11:35 Pulse Ox 100 05/15/21 11:35 Body Mass Index 22.4 Const: Other: General - no acute distress, appears comfortable Cardiovascular - regular rate and rhythm, S1-S2 Lungs - dim sounds on R Abdomen - soft, nontender, no rebound or guarding Extremities - no edema bilaterally Neuro - awake and alert, no focal deficits General: cooperative, healthy appearing, comfortable, no acute distress, alert and awake Nutritional Appearance: well nourished and thin Orientation/consciousness: oriented to person, oriented to place, oriented to time and patient oriented x3 Limitations: no limitations HENMT: Other: Trachea midline with no evidence of subcutaneous emphysema long neck Head: Yes normal to inspection, Yes normocephalic and Yes atraumatic Eyes: General: appearance normal, both eyes and all related structures Visual Heck: normal visual heck by confrontation Alignment and Position: alignment normal Periorbital: periorbital findings normal Conjunctivae: conjunctivae normal Sclerae: sclerae normal Pupils: Equal, round and reactive pupils present and Pupil accommodation reflex normal EOM: EOMs intact bilaterally Neck: Other: supple Neck: Yes normal visual inspection, Yes full ROM, Yes no lymphadenopathy, Yes trachea midline, Yes supple, No lymphadenopathy, No tender and No tracheal deviation Lymphatic: no lymphadenopathy noted Chest: Other: Right-sided pigtail catheter remains indwelling and secure with dressing clean dry and intact. Chest tube attached to -20 low wall suction. No detectable air leak. serosanguineous fluid output overnight. Breath sounds are clear to auscultation bilaterally with no adventitious sounds is wheezes or rhonchi. Chest palpation & inspection: normal inspection of the chest and no crepitus Resp: Other: diminished breath sounds Effort & Inspection: able to speak in complete sentences, normal respiratory pattern, no audible wheezes, no cough, no pursed lip breathing, no stridor, not tachypneic and no tracheal deviation Auscultation: clear to auscultation bilaterally Cardio: Other: Regular rate and rhythm with S1-S2 appreciated. No murmurs rubs or gallops heard Jugular venous distension: no JVD Palpation: normal PMI Rate: regular rate Rhythm: regular rhythm Heart sounds: S1 normal heart sound present, S2 normal heart sound present, no click, no gallops, no murmurs and no rubs GI: Other: Soft nontender to palpation with normal bowel sounds Inspection: Yes normal to inspection Palpation (GI): Soft to palpation, nontender and No hepatosplenomegaly present Auscultation: normal bowel sounds : General: Yes no CVA tenderness Back/Spine/Pelvis: Back: no CVA tenderness Thoracic/Lumbar Spine: thoracic and lumbar spine normal to inspection Skin: General skin exam: no rashes or lesions noted and dry skin Lesions: no lesions Rashes: no rashes Neuro: General: oriented to person, oriented to place, oriented to time, patient oriented x3 and gait normal Cranial nerves: Yes CN's II-XII intact bilaterally, Yes Equal, round and reactive pupils present and Yes Bilaterally intact EOM present Cognition (Neuro): normal cognition Motor exam (neuro): 5/5 motor strength present throughout Sensory Exam: No Sensory deficit (Neuro) Extrem: General: Yes normal to inspection, Yes full ROM, Yes capillary refill normal, Yes no clubbing, cyanosis or edema, Yes no pedal edema and Yes normal gait Psych: Appearance: grossly normal and well kempt Mental Status: mental status grossly normal Speech and movement: Normal speech and movement present and Clear speech present Affect: normal affect Attitude: cooperative Thought process: Normal thought process present Thought content: Normal thought content present Procedures Date of Service Date of Service: 05/15/21 Progress Note: A&P Assessment and plan (1) Pneumothorax: Status: Acute Assessment and Plan: Patient is a 31-year-old male presented to the emergency room complaining of chest pain after ingesting cocaine and marijuana. Patient is also habitual cigarette smoker. Found to have a spontaneous right-sided pneumothorax, 1st occurrence. Status post pigtail catheter placement. Right-sided pigtail catheter remained on -20 low wall suction overnight. Minimal serosanguineous fluid output. No detectable air leak. Morning chest x-ray shows near complete resolution of right-sided pneumothorax. Plan to keep chest tube on -20 low wall suction throughout today and this evening and switched to water seal tonight at midnight. Patient should be OB in chair for all meals. Patient needs to ambulate hallway on water-seal minimal 3-4 times per day. Incentive spirometry ordered, Nursing assured me some spirometry will be initiated this afternoon. Follow-up chest x-ray tomorrow morning. If chest x-ray tomorrow morning remains stable we planned for removal of right- sided pigtail catheter. Fall Risk Details Current Medications: Current Medications Acetaminophen (Acetaminophen 325 Mg Tablet) 650 mg PO Q6H PRN PRN Reason: Pain, Mild (Pain Scale 1-3) Last Admin: 05/15/21 00:54 Dose: 650 mg Documented by: Docusate Sodium (Docusate Sodium 100 Mg Capsule) 100 mg PO DAILY PRN PRN Reason: Constipation Nicotine (Nicotine 14 Mg Patch.Td24) 14 mg TRANSDERMA DAILY [facility] Last Admin: 05/15/21 09:42 Dose: 14 mg Documented by: Ondansetron HCl (Ondansetron Hcl 4 Mg/2 Ml Vial) 4 mg IVPUSH Q8H PRN PRN Reason: Nausea and Vomiting Last Admin: 05/14/21 11:06 Dose: 4 mg Documented by: Oxycodone HCl (Oxycodone Hcl Immed Release 5 Mg Tablet) 5 mg PO Q6H PRN PRN Reason: Pain, Severe (Pain Scale 7-10) Last Admin: 05/14/21 18:23 Dose: 5 mg Documented by: Pharmacy Consult (Consult Rx Perform Med Rec) 1 each MISCELLANE ONCE PRN PRN Reason: Consult order Sodium Chloride (0.9 % Sodium Chloride Flush 3 Ml Syringe) 3 ml IVFLUSH QSHIFT [facility] Last Admin: 05/15/21 09:42 Dose: 3 ml Documented by: Time Spent With Patient Time: Total time spent is greater than 50% in coordination of care (as documented) at patient's floor/unit and/or counseling patient: Time with patient: 15 - 24 minutes Quality Stroke Does the patient have a stroke diagnosis?: No VTE Prior VTE?: No VTE Risk Level:: Medical - low VTE Device Contraindication: Treatment Not Indicated VTE Drug Contraindication: Treatment Not Indicated
[2021-05-15] MEDS: oxyCODONE HCl Immed Release 5 MG TABLET PO (19:55)
--- NOTE | 2021-05-15 20:01 | PC.NURSE ---
pt complaining of 7/10 right chest pain where chest tube is inserted. Has oxycodone prn available but due to decreased HR MD notified to confirm giving or not. MD instructed to give oxycodone and monitor hr/rr.
[2021-05-15] MEDS: ondansetron HCL 4 MG/2 ML VIAL IVPUSH (22:23)
[2021-05-16] MEDS: 0.9 % Sodium Chloride Flush 3 ML SYRINGE IVFLUSH ×2 (00:33→10:00)
--- NOTE | 2021-05-16 01:29 | PC.NURSE ---
Pt disconnected from wall suction at midnight and placed on water seal/gravity. Tolerating being on gravity very well. Minimal complaints of chest pain - only slight pain when repositioning. Pt has walked 2 times, making 2 laps around the unit as of 129. Pt experiencing no shortness of breath. Will continue to monitor.
[2021-05-16 04:00] VITALS: BP 124/82; PULSE 59; RESP 20; TEMP 37; O2SAT 100
[2021-05-16 07:06] VITALS: BP 109/75; PULSE 54; RESP 18; TEMP 36; O2SAT 98
[2021-05-16] MEDS: Acetaminophen 325 MG TABLET 650 MG PO ×2 (09:59→17:33)
[2021-05-16] MEDS: Nicotine 14 MG PATCH.TD24 TRANSDERMA (10:00)
[2021-05-16 11:06] VITALS: BP 110/64; PULSE 58; RESP 16; TEMP 36.1; O2SAT 98
--- NOTE | 2021-05-16 11:43 | HO.PM.IMPN ---
Subjective Subjective Date of Service: 05/16/21 Interval History: Seen and examined this morning Follow-up for right-sided pneumothorax Still with some pain around chest tube, but improving. No shortness of breath Review of Systems Review of Systems: Yes all other systems are reviewed and are negative Constitutional Constitutional: Denies chills and Denies fever(s) Cardiovascular Cardiovascular: Denies chest pain Respiratory Respiratory: Denies cough Gastrointestinal Gastrointestinal: Denies abdominal pain Physical Exam Vital Signs: Vital Signs: Last Vital Signs Temp 97 F 05/16/21 11:06 Pulse 58 05/16/21 11:06 Resp 16 05/16/21 11:06 BP 110/64 05/16/21 11:06 Pulse Ox 98 05/16/21 11:06 Body Mass Index 22.4 Const: General: comfortable, alert and awake Nutritional Appearance: well nourished Orientation/consciousness: patient oriented x3 HENMT: Head: Yes normocephalic and Yes atraumatic Eyes: Sclerae: sclerae normal Chest: Other: right chest tube Resp: Other: diminished breath sounds Effort & Inspection: normal respiratory effort and no respiratory distress Cardio: Rate: regular rate Rhythm: regular rhythm GI: Palpation (GI): Soft to palpation and nontender Neuro: General: patient oriented x3 Cranial nerves: Yes CN's II-XII intact bilaterally and Yes Bilaterally intact EOM present Objective Data Active Medications Acetaminophen (Acetaminophen 325 Mg Tablet) 650 mg PO Q6H PRN PRN Reason: Pain, Mild (Pain Scale 1-3) Last Admin: 05/16/21 09:59 Dose: 650 mg Documented by: TRACY Docusate Sodium (Docusate Sodium 100 Mg Capsule) 100 mg PO DAILY PRN PRN Reason: Constipation Nicotine (Nicotine 14 Mg Patch.Td24) 14 mg TRANSDERMA DAILY [facility] Last Admin: 05/16/21 10:00 Dose: 14 mg Documented by: TRACY Ondansetron HCl (Ondansetron Hcl 4 Mg/2 Ml Vial) 4 mg IVPUSH Q8H PRN PRN Reason: Nausea and Vomiting Last Admin: 05/15/21 22:23 Dose: 4 mg Documented by: DI Oxycodone HCl (Oxycodone Hcl Immed Release 5 Mg Tablet) 5 mg PO Q6H PRN PRN Reason: Pain, Severe (Pain Scale 7-10) Last Admin: 05/15/21 19:55 Dose: 5 mg Documented by: DI Pharmacy Consult (Consult Rx Perform Med Rec) 1 each MISCELLANE ONCE PRN PRN Reason: Consult order Sodium Chloride (0.9 % Sodium Chloride Flush 3 Ml Syringe) 3 ml IVFLUSH QSHIFT [facility] Last Admin: 05/16/21 10:00 Dose: 3 ml Documented by: TRACY Labs CBC & Chem 7: 05/13/21 05:30 05/13/21 05:30 Assessment and Plan (1) Pneumothorax: Status: Acute Assessment and Plan: This is a 31yo M with hx tobacco abuse presenting with acute dyspnea, found to have spontaneous PTX PTX s/p right chest tube placement CXR stable thoracic following pain management, IS Bradycardia EKG showing sinus higinio, no heart block Patient asymptomatic Continue tele monitoring, no intervention required at this time tobacco abuse - NRT dvt ppx - mechanical devices attending: dr. Mary Quality Stroke Does the patient have a stroke diagnosis?: No VTE Prior VTE?: No VTE Risk Level:: Medical - low VTE Device Contraindication: Treatment Not Indicated VTE Drug Contraindication: Treatment Not Indicated
--- NOTE | 2021-05-16 12:34 | PC.NURSE ---
Addendum entered by Gabi De Los Santos RN 05/16/21 14:39: Pt states that his pain is improving at this time after medication. Plan remains for CXR at 3pm and possible removal of CT. Pt aware of this plan. Addendum entered by Gabi De Los Santos RN 05/16/21 13:28: PT no c/o pain to right chest worse than before and worse than yesterday. No changes in VS (sats 98% and RR 16). No changes in lung sounds. Thoracic PA made aware. PT given prn oxycodone Original Note: Chest tube was clamped by thoracic PA at 1100. At this time pt denies any new discomfort or SOB. Breathing is even and unlabored at this time.
[2021-05-16] MEDS: oxyCODONE HCl Immed Release 5 MG TABLET PO (13:20)
[2021-05-16 15:10] VITALS: BP 117/87; PULSE 73; RESP 20; TEMP 36.8; O2SAT 98
--- NOTE | 2021-05-16 15:56 | P.PNTS_ITS ---
Subjective Subjective Date of Service: 05/16/21 Interval history: Overnight patient's chest tube remained on water seal from midnight. Patient denies any increased shortness of breath while on water seal. A morning chest x-ray revealed no change in tiny apical right-sided pneumothorax. Tube was clamped at 11:30 with a follow-up chest x-ray 4 hours later which revealed slight improvement in right apical tiny pneumothorax. Patient denied any increased shortness of breath while on tube clamp trial. Physical Exam Vital Signs: Vital Signs: Last Vital Signs Temp 98.2 F 05/16/21 15:10 Pulse 73 05/16/21 15:10 Resp 20 05/16/21 15:10 BP 117/87 05/16/21 15:10 Pulse Ox 98 05/16/21 15:10 Body Mass Index 22.4 Const: Other: General - no acute distress, appears comfortable Cardiovascular - regular rate and rhythm, S1-S2 Lungs - dim sounds on R Abdomen - soft, nontender, no rebound or guarding Extremities - no edema bilaterally Neuro - awake and alert, no focal deficits General: cooperative, healthy appearing, comfortable, no acute distress, alert and awake Nutritional Appearance: well nourished and thin Orientation/consciousness: oriented to person, oriented to place and oriented to time Limitations: no limitations HENMT: Other: Trachea midline with no evidence of subcutaneous emphysema long neck Head: Yes normal to inspection Ears: external ears normal General nose exam: Normal external nose present Mouth: Normal oral and palatal mucosa present and oropharynx normal Throat: Yes posterior oropharynx normal Eyes: General: appearance normal, both eyes and all related structures Visual Heck: normal visual heck by confrontation Alignment and Position: alignment normal Periorbital: periorbital findings normal Conjunctivae: conjunctivae normal Pupils: Equal, round and reactive pupils present and Pupil accommodation reflex normal EOM: EOMs intact bilaterally Neck: Other: supple Neck: Yes normal visual inspection, Yes full ROM, Yes no lymphadenopathy, Yes trachea midline, Yes supple, No lymphadenopathy, No tender and No tracheal deviation Lymphatic: no lymphadenopathy noted Chest: Other: right chest tube Chest palpation & inspection: normal inspection of the chest Resp: Other: diminished breath sounds Effort & Inspection: able to speak in complete sentences, normal respiratory pattern, no audible wheezes, no cough, no pursed lip breathing, no stridor, not tachypneic and no tracheal deviation Auscultation: clear to auscultation bilaterally Cardio: Other: Regular rate and rhythm with S1-S2 appreciated. No murmurs rubs or gallops heard Jugular venous distension: no JVD Palpation: normal PMI Rate: regular rate Rhythm: regular rhythm Heart sounds: S1 normal heart sound present, no click, no gallops, no murmurs and no rubs GI: Other: Soft nontender to palpation with normal bowel sounds Inspection: Yes normal to inspection Palpation (GI): nontender and No hepatosplenomegaly present Auscultation: normal bowel sounds Skin: General skin exam: no rashes or lesions noted and dry skin Lesions: no lesions Rashes: no rashes Neuro: General: oriented to person, oriented to place, oriented to time and gait normal Cranial nerves: Yes Equal, round and reactive pupils present Cognition (Neuro): normal cognition Motor exam (neuro): 5/5 motor strength present throughout Extrem: General: Yes normal to inspection, Yes full ROM, Yes capillary refill normal, Yes no clubbing, cyanosis or edema, Yes no pedal edema and Yes normal gait Procedures Date of Service Date of Service: 05/16/21 Progress Note: A&P Assessment and plan (1) Pneumothorax: Status: Acute Assessment and Plan: The patient is a 31-year-old male who was admitted to [facility] for right-sided spontaneous pneumothorax, s/p pigtail insertion performed by IR. * Morning chest x-ray reveals stability of right-sided tiny apical pneumothorax after chest tube being placed on water seal last night at midnight. * There was no detectable chest tube air leak. * Patient was placed on a chest tube clamping trial at 11:30 with a follow-up chest x-ray this afternoon at 15:30 which showed improvement in tiny apical pneumothorax. * Right-sided pigtail catheter was removed without incident and a dry occlusive dressing put in place. * Patient was instructed that is dry occlusive dressing must remain in place for the next 48 hours and then he can remove to room air. * Patient will not require any follow-up with the thoracic Surgical Department. * From a thoracic surgical point of view patient is okay for discharge to hours from chest tube removal which will be 17:45 as long she does not report any increased shortness of breath. Thank you for allowing me to participate in this patient's care. Any questions or concerns please do not hesitate to contact the thoracic Surgical Department. Fall Risk Details Current Medications: Current Medications Acetaminophen (Acetaminophen 325 Mg Tablet) 650 mg PO Q6H PRN PRN Reason: Pain, Mild (Pain Scale 1-3) Last Admin: 05/16/21 09:59 Dose: 650 mg Documented by: Docusate Sodium (Docusate Sodium 100 Mg Capsule) 100 mg PO DAILY PRN PRN Reason: Constipation Nicotine (Nicotine 14 Mg Patch.Td24) 14 mg TRANSDERMA DAILY [facility] Last Admin: 05/16/21 10:00 Dose: 14 mg Documented by: Ondansetron HCl (Ondansetron Hcl 4 Mg/2 Ml Vial) 4 mg IVPUSH Q8H PRN PRN Reason: Nausea and Vomiting Last Admin: 05/15/21 22:23 Dose: 4 mg Documented by: Oxycodone HCl (Oxycodone Hcl Immed Release 5 Mg Tablet) 5 mg PO Q6H PRN PRN Reason: Pain, Severe (Pain Scale 7-10) Last Admin: 05/16/21 13:20 Dose: 5 mg Documented by: Pharmacy Consult (Consult Rx Perform Med Rec) 1 each MISCELLANE ONCE PRN PRN Reason: Consult order Sodium Chloride (0.9 % Sodium Chloride Flush 3 Ml Syringe) 3 ml IVFLUSH QSHIFT [facility] Last Admin: 05/16/21 10:00 Dose: 3 ml Documented by: Time Spent With Patient Time: Total time spent is greater than 50% in coordination of care (as documented) at patient's floor/unit and/or counseling patient: Time with patient: 15 - 24 minutes Quality Stroke Does the patient have a stroke diagnosis?: No VTE Prior VTE?: No VTE Risk Level:: Medical - low VTE Device Contraindication: Treatment Not Indicated VTE Drug Contraindication: Treatment Not Indicated
--- NOTE | 2021-05-16 16:54 | P.DS_ITS ---
DS: Providers Provider Date of Service: 05/16/21 Date of admission: 05/12/21 09:00 Date of discharge: 05/16/21 Primary care physician: None Physician Consults: 05/12/21 09:47 Consult to Thoracic Surgery Routine Consulting Provider: Jordan David Reason for consultation: pneumothorax Has provider been notified: Yes Attending physician on discharge: Marilyn Mary Discharging clinician: Jessica Polk DS: Diagnosis Discharge Diagnosis (1) Pneumothorax: Status: Acute DS: Summary Hospital Course Hospital Course: From H&P on day of admission 31-year-old male with no significant past medical history who presents to the hospital with complaint of chest pain and shortness of breath.? Patient reports that he used some cocaine today followed by marijuana, shortly after developed significant right-sided chest pain that was 10/10, associated with shortness of breath, radiating to the back, constant, worse with deep inspiration.? Patient denies any headache, he no dizziness, no palpitations, no abdominal pain nausea or vomiting, no diarrhea constipation, no urinary symptoms and no lower extremity edema.? No numbness tingling or weakness. On arrival to the ED patient hemodynamically stable with no significant abnormal vitals, satting 100% on room air Labs reviewed with no significant abnormality Moderate size right epical pneumothorax of approximately 25%.? No acute focal airspace disease Thoracic surgery was consulted, recommended patient be placed on 100% non- rebreather and admitted for observation Right pneumothorax Patient had right chest tube placed by IR. Thoracic surgery was consulted for chest tube management. He had a daily chest x-rays. His pneumothorax has remained stable. Tube was clamped this morning and repeat CXR several hours later showed improvement of right pneumothorax. Right chest tube was removed by thoracic surgery this afternoon. He was observed after removal of the tube and has not had any change in his respiratory status. He has been instructed to keep his dry occlusive dressing in place for the next 48 hours and has been cleared for discharge by thoracic surgery. He does not need outpatient follow- up with thoracic surgery. Time Spent with Patient Time attestation: Total time spent providing and/or coordinating discharge services: Discharge coordination time: Greater than 30 minutes Quality: Stroke Does the patient have a stroke diagnosis?: No Physical Exam Vital Signs: Vital Signs: Last Vital Signs Temp 98.2 F 05/16/21 15:10 Pulse 73 05/16/21 15:10 Resp 20 05/16/21 15:10 BP 117/87 05/16/21 15:10 Pulse Ox 98 05/16/21 15:10 Body Mass Index 22.4 Const: General: comfortable, alert and awake Nutritional Appearance: well nourished Orientation/consciousness: patient oriented x3 HENMT: Head: Yes normocephalic and Yes atraumatic Eyes: Sclerae: sclerae normal Resp: Other: diminished breath sounds Effort & Inspection: normal respiratory effort and no respiratory distress Cardio: Rate: regular rate Rhythm: regular rhythm GI: Palpation (GI): Soft to palpation and nontender Neuro: General: patient oriented x3 Cranial nerves: Yes CN's II-XII intact bilaterally and Yes Bilaterally intact EOM present Discharge Plan Discharge Patient Disposition: Home, Self-Care Discharge Diagnosis: Right pneumothorax Referrals: Physician,None [Primary Care Provider] - 1 Week Discharge Medications: Continued naproxen 500 mg tablet 500 mg PO BID PRN (Reason: Pain (Scale Score 1-3)) RF: 0 Activity on Discharge: As tolerated Stand Alone Forms: Patient Portal Discharge page Care Plan Goals: Stay healthy and out of the hospital Health Concerns: Rate pneumothorax Plan of Treatment: Keep dry occlusive dressing in place for 48 hours Return to the emergency department if he develops shortness of breath or chest Assessment: Admitted for right pneumothorax now stable for discharge
[2021-05-16 17:45] VITALS: BP 111/68; PULSE 68; RESP 20; O2SAT 98
== END 2021-05-16 18:20 | disposition home or self-care (01) | DRG 201 ==
LOC: HO.ED 21:17 → HO.EDOVER 22:22 → HO.IMC 05-12 19:33
PROVIDERS: Family Medicine; Radiology Diagnostic Radiology; Admitting Provider Internal Medicine; Emergency Provider Emergency Medicine; Visit Provider Physician Assistant Medical
PROC: 0W9930Z Drainage of Right Pleural Cavity with Drainage Device, Percutaneous Approach (ICD-10-PCS; CPT 32551; principal; 2021-05-12 12:30)
DX: J93.11 Primary spontaneous pneumothorax (principal); F17.210 Nicotine dependence, cigarettes, uncomplicated; R00.1 Bradycardia, unspecified; Z23 Encounter for immunization; Z71.6 Tobacco abuse counseling; Z79.1 Long term (current) use of non-steroidal anti-inflammatories (NSAID)
CPT/HCPCS: 32551; 36415; 71045; 71046; 80048; 84484; 85025; 85610; 85730; 87635; 90686; 93005; 99152; 99153; 99219; 99285; C1729; J2405; Q4186

== ENCOUNTER → 2021-05-18 13:10 | Outpatient (BNVA) | payer MEDICARE, MEDICAID, SELFPAY | PROVIDERS: Visit Provider Physician Assistant | DX: S83.511D Sprain of anterior cruciate ligament of right knee, subsequent encounter (principal) | CPT/HCPCS: 99212 ==

== ENCOUNTER 2021-06-11 18:20 | Outpatient (REF) | payer MEDICARE, MEDICAID, SELFPAY ==
--- NOTE | ~2021-06-11 | MR_ITS ---
EXAMINATION: MR KNEE WITHOUT CONTRAST, RIGHT CLINICAL INFORMATION: Right knee pain and swelling following a fall. Inferior patellar pain. Anterior cruciate ligament reconstruction in 2019. COMPARISON: Most recent right knee radiographs dated 05/05/2021 and right knee MRI dated 12/13/2018. TECHNIQUE: MRI of the knee without contrast was performed using routine sequences on a high-field scanner. FINDINGS: MENISCI: Medial Meniscus: Near-complete resolution of the previously seen horizontal tear through the periphery of the medial meniscus posterior horn. Lateral Meniscus: There is a bucket-handle tear of the lateral meniscus with approximately 25% of the meniscal volume displaced centrally. Oblique tear through the nondisplaced meniscal body. Tearing extends from the anterior horn to the posterior root. This is new when compared to the prior MRI. LIGAMENTS: Cruciate: Postsurgical change consistent with anterior cruciate ligament reconstruction. Absence of the ligament graft, consistent with a complete tear. Intact posterior cruciate ligament. Collateral: Intact. EXTENSOR MECHANISM: Intact. ARTICULAR CARTILAGE/BONE: Patellofemoral Compartment: Medial patellofemoral partial-thickness articular cartilage loss with fissuring, increased when compared to the prior examination. Tiny marginal osteophytes. Medial Compartment: Marrow edema at the medial aspect of the medial femoral condyle as well as at the posterior medial tibial plateau, consistent with osseous contusions. Articular cartilage thinning with full-thickness loss at the posterior medial tibial plateau. Tiny marginal osteophytes. Lateral Compartment: Cortical depression with associated marrow edema at the sulcus terminalis as well as cortical depression and marrow edema at the posterior lateral tibial plateau, consistent with impaction fractures. New articular cartilage loss at the posterior lateral tibial plateau. JOINT FLUID AND BURSAE: Small joint effusion. MR/MR knee RT wo con IMPRESSION: 1. Absence of the anterior cruciate ligament graft, consistent with a complete tear. 2. Minimally depressed impaction fractures at the sulcus terminalis and posterior lateral tibial plateau. Prominent associated marrow edema. Osseous contusions at the medial femoral condyle and posterior medial tibial plateau. 3. Bucket-handle tear of the lateral meniscus with approximately 25% of the meniscal volume displaced centrally. Tearing extends from the anterior horn to the posterior root. Oblique inner margin tear of the nondisplaced meniscal body. Findings are new when compared to the prior MRI. 4. Previously seen medial meniscal tear not well visualized on the current examination and may be related to meniscal repair. 5. Mild patellofemoral and medial compartment osteoarthritis, slightly progressed. Small joint effusion.
== END 2021-06-11 18:21 | disposition home or self-care (01) ==
LOC: HO.MRI 18:20
PROVIDERS: Visit Provider Physician Assistant
DX: S83.511A Sprain of anterior cruciate ligament of right knee, initial encounter (principal); X58.XXXA Exposure to other specified factors, initial encounter; Y93.9 Activity, unspecified; Y92.9 Unspecified place or not applicable; Y99.9 Unspecified external cause status
CPT/HCPCS: 73721

== ENCOUNTER 2024-03-09 15:47 | Inpatient (IN) | payer MEDICARE, MEDICAID, SELFPAY ==
[2024-03-09] VITALS (12 sets, daily range): BP systolic 102–126; BP diastolic 73–86; PULSE 45–75; RESP 14–24; TEMP 36.6–36.9; O2SAT 95–100; BMI 21.1
--- NOTE | ~2024-03-09 | XR_ITS ---
EXAMINATION: XR CHEST CLINICAL INFORMATION: Postop COMPARISON: Previous day's exam TECHNIQUE: Portable semiupright 5:58 AM view of the chest was obtained. FINDINGS: Stable appearance of miniscule right apical pneumothorax from previous day's exam. Right-sided thoracostomy tube remains stable with its tip within the right apex. No new findings. XR/XR chest 1V IMPRESSION: Stable miniscule right apical pneumothorax.
--- NOTE | ~2024-03-09 | XR_ITS ---
EXAMINATION: XR CHEST CLINICAL INFORMATION: Post chest tube placement COMPARISON: Chest radiograph from earlier the same day TECHNIQUE: Frontal view of the chest was obtained. FINDINGS: Interval placement of a right-sided apical chest tube with only a small residual apical pneumothorax appreciated. There is no consolidation. Left lung is clear. Cardiomediastinal silhouette is normal in size, no mediastinal shift. XR/XR chest 1V IMPRESSION: Interval placement of a right-sided chest tube with only a small residual apical pneumothorax.
--- NOTE | ~2024-03-09 | XR_ITS ---
EXAMINATION: XR CHEST CLINICAL INFORMATION: Follow-up pneumothorax. COMPARISON: 03/12/2024, 03/11/2024 at 7:07 AM. TECHNIQUE: Frontal view of the chest was obtained. FINDINGS: Right thoracostomy tube again identified in the apical portion of the right hemithorax with tip now curled slightly more caudad along the medial aspect of the right lung apex. Minimal residual right apical pneumothorax. Heart size is normal. No significant pleural effusion. No focal consolidation. XR/XR chest 1V IMPRESSION: Right thoracostomy tube again identified in the apical portion of the right hemithorax with tip now curled slightly more caudad along the medial aspect of the right lung apex. Minimal residual right apical pneumothorax. This study was presented today March 13, 2024 for interpretation. Stat results provided at this time as requested by referring provider.
--- NOTE | ~2024-03-09 | XR_ITS ---
EXAMINATION: XR CHEST CLINICAL INFORMATION: Follow up chest tube removal. COMPARISON: Multiple priors with last chest x-ray of 03/15/2024 obtained at 5:58 AM. TECHNIQUE: Frontal view of the chest was obtained. FINDINGS: Interval removal of a right-sided apically oriented chest tube. Small right apical pneumothorax is again noted, without significant interval change compared to last x-ray of 03/15/2024 and 03/14/2024. No left pneumothorax. Lungs are essentially clear. No evidence of pleural effusions. Cardiomediastinal silhouette is normal. Visualized upper abdomen is unremarkable. XR/XR chest 1V IMPRESSION: Status post removal of the right chest tube. Persistent very small right apical pneumothorax without interval change compared to previous x-ray of 03/14/2024. No acute pulmonary process.
--- NOTE | ~2024-03-09 | XR_ITS ---
EXAMINATION: XR CHEST CLINICAL INFORMATION: Follow up on pneumothorax COMPARISON: Chest x-ray dated 03/09/2024 TECHNIQUE: Frontal view of the chest was obtained. FINDINGS: Right apical chest tube remains in place in similar position. Similar appearance of trace residual pneumothorax. There is no consolidation. Left lung is clear. The cardiac mediastinal silhouette is normal in size. No acute osseous abnormality. XR/XR chest 1V IMPRESSION: Right-sided chest tube remains in place with stable trace residual right apical pneumothorax.
--- NOTE | ~2024-03-09 | XR_ITS ---
EXAMINATION: XR CHEST CLINICAL INFORMATION: Follow-up pneumothorax. COMPARISON: 03/11/2024 at 7:07 AM. TECHNIQUE: Frontal view of the chest was obtained. FINDINGS: Redemonstration of right thoracostomy tube with tip positioned at the medial right apex. Redemonstration of minimal right apical pneumothorax. Heart size is normal. No pleural effusion. No focal consolidation. XR/XR chest 1V IMPRESSION: Redemonstration of minimal right apical pneumothorax. This study was presented today March 12, 2024 for interpretation. Stat results provided at this time as requested by referring provider.
--- NOTE | ~2024-03-09 | XR_ITS ---
EXAMINATION: XR CHEST CLINICAL INFORMATION: Status post right blebectomy COMPARISON: 03/13/2024 TECHNIQUE: Frontal view of the chest was obtained. FINDINGS: Small-caliber chest tube that had been present at the right lung apex has been removed and a large 4 chest tube is now seen. There is a tiny residual right apical pneumothorax (see estrella images). No other significant abnormality is noted involving the heart, lungs, mediastinum, bony thorax or soft tissues. XR/XR chest 1V IMPRESSION: Tiny residual right apical pneumothorax.
--- NOTE | ~2024-03-09 | XR_ITS ---
EXAMINATION: XR CHEST CLINICAL INFORMATION: Follow-up pneumothorax. COMPARISON: Prior chest radiographs, most recently 03/10/2024. TECHNIQUE: Frontal view of the chest was obtained. FINDINGS: The heart, great vessels, pulmonary vasculature and mediastinum are stable. A minimal right apical pneumothorax is redemonstrated, with the bilateral apices, partially excluded from the [id number]. A right thoracostomy tube is minimally changed in position, tip situated at the medial apex. No new or infiltrate or effusion is seen. There is no acute osseous abnormality. XR/XR chest 1V IMPRESSION: There is a stable tiny right apical pneumothorax. The right apex is incompletely covered in the [id number]. A right thoracostomy tube is again seen with tip situated at the medial apex.
--- NOTE | ~2024-03-09 | XR_ITS ---
EXAMINATION: XR CHEST CLINICAL INFORMATION: Shortness of breath COMPARISON: Chest radiograph 05/16/2021 TECHNIQUE: Frontal view of the chest was obtained. FINDINGS: Large right pneumothorax with collapse of the right lung. The left lung is clear. No left-sided pleural effusion. The cardiomediastinal silhouette is within normal limits. No acute osseous abnormality. XR/XR chest 1V IMPRESSION: Large right pneumothorax with collapse of the right lung This Critical Result was discussed with ARTHUR Naranjo at 5:00 PM on 03/09/2024 and it was ascertained that the content and urgency of the report was understood at the time of direct communication.
--- NOTE | 2024-03-09 15:48 | ECG_ITS ---
Test Reason : CHEST PAIN Blood Pressure : / mmHG Vent. Rate : 072 BPM Atrial Rate : 072 BPM P-R Int : 160 ms QRS Dur : 126 ms QT Int : 396 ms P-R-T Axes : 095 088 053 degrees QTc Int : 433 ms Normal sinus rhythm Non-specific intra-ventricular conduction block Abnormal ECG When compared with ECG of 15-MAY-2021 00:57, QT has lengthened Referred By: Raissa Hernandez Electronically Signed By:Hany Wang
--- NOTE | 2024-03-09 16:01 | ED_ITS ---
HPI - General Adult General Chief complaint: Chest Pain Stated complaint: chest pain,sob Time Seen by Provider: 03/09/24 16:16 Source: patient Mode of arrival: ambulatory Limitations: no limitations History of Present Illness ED Provider: Dr. Lindsey Jones HPI narrative: Complaining of significant right-sided chest pain and shortness of breath. Patient states he woke up with the pain approximately 7 hours ago. Patient states that about 3 years ago, patient had a right-sided pneumothorax and feels the same. Patient denies any left-sided chest pain, no arm or jaw pain. Related Data Home Medications ?Medication ?Instructions ?Recorded ?Confirmed No Known Home Meds 03/09/24 03/09/24 Allergies Allergy/AdvReac Type Severity Reaction Status Date / Time No Known Allergies Allergy Verified 03/09/24 16:01 Review of Systems 2 Review of Systems: Constitutional : No Weight loss, No Fever, No Chills, No Night Sweats, No Fatigue, No Malaise ENT/Mouth : No Hearing loss, No Ear Pain, No Nasal Congestion, No Sinus Pain, No Hoarseness, No sore throat, No Rhinorrhea, No Swallowing Difficulty Eyes: No Eye Pain, No Swelling, No Redness, No Foreign Body, No Discharge, No Vision Changes Cardiovascular : Complaining of sharp constant right-sided Chest Pain, painful with breathing, feeling short of breath Respiratory : No Cough, No Sputum, No Wheezing, No Smoke Exposure, complaining Gastrointestinal : No Nausea, No Vomiting, No Diarrhea, No Constipation, No abdominal Pain, No Hematochezia, No Melena Genitourinary : no irregular bleeding, No Dysuria, No Urinary Frequency, No Hematuria, No Urinary Incontinence, No Urgency, No Flank Pain, No Urinary Flow Changes, No Hesitancy Musculoskeletal : No joint pain, No Myalgias, No Joint Swelling Skin : No Skin Lesions, No rash Neuro : No Weakness, No Numbness, No Paresthesias, No Loss of Consciousness, No Dizziness, No Headache Psych : No Anxiety/Panic, No Depression, No SI/HI/AH/VH, No Social Issues, Heme/Lymph: No Bruising, No Bleeding,No Lymphadenopathy Endocrine : No Polyuria, No Polydipsia, No Temperature Intolerance PMF Past Medical History Medical History (Updated 03/09/24 @ 18:08 by Lindsey Jones MD) Cocaine abuse Pneumothorax Surgical History H/O knee surgery Social History Social History (Updated 05/18/21 @ 13:41 by Luis Espitia) Household Members: Family Household Members Other:: Father Housing: House Do you presently have visiting nurse or other home services: No Alcohol intake: never Patient Tobacco Use Status: Current everyday Tobacco user Cigarette Packs Per Day: 1 Smoked in Last 30 Days: Yes Use of substances other than those prescribed or required for medical reasons: Yes Substance Use Type: Marijuana Substance Use Frequency: Daily Advance Directives: No Advance Directives Information Provided: No Do you have a plan to hurt others: No Plan service: No Current occupational status: disabled Current occupation: rt handed Physical Exam ED Vital Signs: Vital Signs - 24 hr 03/09/24 16:00 03/09/24 16:40 03/09/24 17:03 Temperature 97.9 F 98.5 F Pulse Rate 67 62 71 Respiratory Rate 20 17 18 Blood Pressure 111/76 126/86 102/76 Pulse Oximetry 99 99 97 Oxygen Delivery Method Room Air Room Air Room Air 03/09/24 17:05 03/09/24 17:13 03/09/24 17:26 Temperature Pulse Rate 73 61 Respiratory Rate 20 16 16 Blood Pressure 121/79 115/78 Pulse Oximetry 95 99 Oxygen Delivery Method 03/09/24 17:31 03/09/24 17:39 03/09/24 17:47 Temperature 98.2 F Pulse Rate 75 60 56 Respiratory Rate 14 14 16 Blood Pressure 113/83 113/83 109/73 Pulse Oximetry 98 100 100 Oxygen Delivery Method Room Air Room Air 03/09/24 17:54 03/09/24 20:00 Temperature 98.2 F Pulse Rate 58 53 Respiratory Rate 16 24 H Blood Pressure 111/76 117/74 Pulse Oximetry 100 99 Oxygen Delivery Method Room Air Room Air BMI result Body Mass Index 21.1 Const Other: Appearance: Alert. Oriented X3. No acute distress. Eyes: Pupils equal, round and reactive to light. ENT: Pharynx normal. Neck: Normal inspection. Neck supple. No lymph nodes noted. No crepitus CVS: Normal heart rate and rhythm. Pulses normal. Normal S1 and S2 Respiratory: No audible breath sounds on the right, normal breath sounds on the left Abdomen: Soft and nontender. No rigidity. No distention. Skin: Skin warm and dry. Normal skin color. Normal skin turgor. Extremities: No lower extremity edema. No Lacerations. No Rash Neuro: Oriented X 3. No motor deficit. No sensory deficit. Moving all extremities. No slurred speech. CN 2 through 12 grossly intact Psych: calm, cooperative, normal affect Course Course Course Narrative: RME performed by Raissa Hernandez PA-C. Patient is a 33 year old assigned male at presenting to the emergency department with chest pain. Patient states he has central chest pain and a cough. Detailed physical exam and review of systems are deferred to the roll up machine operator. EKG, imaging, and swabs ordered. Patient placed back in the waiting room pending room availability and results. Medications Administered Discontinued Medications Generic Name Dose Route Start Last Admin Trade Name Freq PRN Reason Stop Dose Admin Lidocaine HCl 10 ml 03/09/24 17:49 03/09/24 17:10 Lidocaine Hcl 1 % 10 Ml Vial INFILTRATI 03/09/24 17:50 10 ml ONCE ONE Administration Morphine Sulfate 4 mg 03/09/24 17:49 03/09/24 17:26 Morphine Sulfate 4 Mg/Ml Cartridge IVPUSH 03/09/24 17:50 4 mg ONCE ONE Administration Protocol Propofol 70.7 mg 03/09/24 16:44 03/09/24 17:05 Propofol 200 Mg/20 Ml Vial 1 mg/kg (70.7 mg) 03/09/24 16:45 70.7 mg IVPUSH Administration ONCE ONE Propofol 70.7 mg 03/09/24 17:49 03/09/24 17:13 Propofol 200 Mg/20 Ml Vial 1 mg/kg (70.7 mg) 03/09/24 17:50 70.7 mg IVPUSH Administration ONCE ONE Procedures Chest Tube Chest Tube 1: Chest Tube Location: right Size of Tube (cm): 14 Chest Tube Prep: Yes betadine prep and sterile drapes applied Local Anesthetic: lidocaine 1% Amount of anesthesia used (mL): 6 Incision Made With: #11 blade Post Procedure: sutured to skin and sterile dressing applied Tube Drainage: other (Air) Post Procedure CXR?: Yes Patient Tolerated Procedure: Yes Progress: No complication Medical Decision Making Medical Decision Making [facility] Narrative: -my interpretation of chest x-ray: Large pneumothorax on the right -my interpretation of labs: White blood cell count 13.1, likely reactive leukocytosis, D-dimer negative, chemistry within normal limits, troponin negative, serology positive for COVID -patient will need a chest tube/pigtail placement. -I discussed with the patient that this can be done with local/numbing medication. Patient prefers conscious sedation. -the last time that the patient ate anything to drink today was yesterday, over 15 hours ago. -we will go ahead and use propofol - Patient agrees with plan. Signed consent -patient tolerated well the pigtail placement, no complications, patient states he is breathing much more comfortably. Complaining of minimal localized pain -an initial dose of propofol 1 milligram/kilogram was used. However, patient was still awake, a 2nd dose of 1 milligram/kilogram of propofol was used. -patient was also medicated with 1 dose of 4 mg of morphine and Zofran -my interpretation of chest x-ray after chest tube placement: Lung re-expanded nearly completed, pigtail in good placement in right apex -I discussed the patient with Dr. Chauhan from thoracic surgery It was decided that the internal medicine will the patient and Dr. Chauhan from thoracic surgery will be the relationship consultant Differential Diagnosis Differential Diagnoses: The differential diagnosis associated with the presentation includes (Pneumothorax, tension pneumothorax, COVID, RSV, pneumonia) Admission/Observation Consideration of admission/observation: Escalation of care including admission/observation considered Consult Healthcare Provider Management of the patient was discussed with: Facing Machine Operator Lab Data [facility] Lab Attestation statement: I reviewed the patient's lab results. 03/09/24 16:23 03/09/24 16:23 Labs: Lab Results 03/09/24 03/09/24 Range/Units 16:06 16:23 WBC 13.1 H (4.8-10.8) X10*3/uL RBC 5.02 (4.60-5.80) X10*6/uL Hgb 15.1 (14.0-18.0) g/dl Hct 45.0 (42.0-52.0) % MCV 89.6 (80.0-98.0) fL MCH 30.1 (27.0-33.0) pg MCHC 33.6 (31.0-36.0) g/dl RDW 12.6 (11.0-16.0) % Plt Count 283 (160-400) X10*3/uL MPV 9.8 (9.4-12.4) fL Immature Gran % (Auto) 0.3 (0.0-0.4) % Neut % (Auto) 63.9 (45-73) % Lymph % (Auto) 26.9 (20-40) % [place] % (Auto) 8.0 (2-11) % Eos % (Auto) 0.5 (0-4) % Baso % (Auto) 0.4 (0-2) % Lymph # (Auto) 3.5 (1.2-4.9) X10*3/uL [place] # (Auto) 1.0 (0.1-1.2) X10*3/uL Eos # (Auto) 0.1 (0.0-0.4) X10*3/uL Baso # (Auto) 0.1 (0.0-0.2) X10*3/uL Abs Immat Gran (auto) 0.04 H (0.00-0.03) X10*3/uL Absolute Neuts (auto) 8.4 H (2.0-8.3) x10*3/uL Absolute Nucleated RBC 0.000 (0.0-0.012) X10*3/uL Nucleated RBC % (auto) 0.0 (0.0-0.2) /100WBC D-Dimer High Sensitivty < 150 NG/ML Sodium 141 (135-145) mmol/L Potassium 4.0 (3.3-5.1) mmol/L Chloride 104 (96-108) mmol/L Carbon Dioxide 24 (22-29) mmol/L Anion Gap 17 (12-20) BUN 16 (9-16) mg/dL Creatinine 1.11 (0.5-1.4) mg/dL Estim Creat Clear Calc 93.7 Estimated GFR > 60 Random Glucose 83 (60-115) mg/dL Calcium 10.6 H D (8.4-10.2) mg/dL Magnesium 2.1 (1.6-2.6) mg/dL Total Bilirubin 0.6 (0.0-1.0) mg/dL AST 17 (5-37) U/L ALT 16 (0-40) U/L Alkaline Phosphatase 83 (39-117) U/L Troponin I High Sens 11.6 (<3.5-35.0) ng/L Total Protein 9.0 H (6.5-8.0) g/dL Albumin 4.9 (3.5-5.0) g/dL Influenza Type A (PCR) NEGATIVE (Negative) Influenza Type B (PCR) NEGATIVE (Negative) RSV RNA Qual (PCR) NEGATIVE (Negative) SARS-CoV-2 RNA (RT-PCR) POSITIVE A (Negative) Independent Interpretation I performed an independent interpretation of an: Plain X-Ray Radiology Impression Discussion of test interpretation with radiology: I have reviewed the radiologist's reading. Critical Care Time Critical Care Time Critical Care Time: Yes Total Critical Care Time: 75 Attestation: I have personally provided critical care time. Time includes review of lab data, radiology results, discussion with consultants, and monitoring for potential decompensation. Intervention performed as documented. Discharge Plan Discharge Clinical Impression: Pneumothorax Qualifiers: Pneumothorax type: spontaneous, primary Qualified Code(s): J93.11 - Primary spontaneous pneumothorax Patient Disposition: Admitted As Inpatient Print Language: Yemeni
--- NOTE | 2024-03-09 16:28 | PC.NURSE ---
20gIV placed in the right AC - labs obtained/sent to lab.
--- NOTE | 2024-03-09 16:39 | PC.NURSE ---
Pt. moved to ED bed 4
--- NOTE | 2024-03-09 16:39 | PC.NURSE ---
pt noted to have right sided pneumothorax on portable chest xray. pt immediately transported to ED4 after notifying charge, ALEX Del Valle.
[2024-03-09 16:41] LABS: MANUAL DIFF FLAG NO
--- NOTE | 2024-03-09 16:41 | PC.NURSE ---
Pt. is on continuous awake overnight monitor at this time.
[2024-03-09 16:43] LABS: Basophils Absolute Auto 0.1 X10*3/uL (0.0-0.2); Basophils Percent Auto 0.4 % (0-2); Eosinophils Absolute Auto 0.1 X10*3/uL (0.0-0.4); Eosinophils Percent Auto 0.5 % (0-4); Hemoglobin 15.1 g/dl (14.0-18.0); Imm Gran Abs Auto 0.04 X10*3/uL (0.00-0.03); Imm Gran Pct Auto 0.3 % (0.0-0.4); Lymphocytes Absolute Auto 3.5 X10*3/uL (1.2-4.9); Lymphocytes Percent Auto 26.9 % (20-40); Mean Corpuscular HGB Conc 33.6 g/dl (31.0-36.0); Mean Corpuscular Hemoglobin 30.1 pg (27.0-33.0); Mean Corpuscular Volume 89.6 fL (80.0-98.0); Mean Platelet Volume 9.8 fL (9.4-12.4); Neutrophils Absolute Auto 8.4 x10*3/uL (2.0-8.3); Neutrophils Percent Auto 63.9 % (45-73); Platelet Count 283 X10*3/uL (160-400); Red Blood Count 5.02 X10*6/uL (4.60-5.80); Red Cell Distribution Width 12.6 % (11.0-16.0); White Blood Count 13.1 X10*3/uL (4.8-10.8)
[2024-03-09 16:55] LABS: Influenza A PCR NEGATIVE (Negative); Influenza B PCR NEGATIVE (Negative); Resp Syncy Virus RNA Qual PCR NEGATIVE (Negative); SARS COV2 PCR INHOUSE POSITIVE (Negative)
[2024-03-09 16:56] LABS: Alanine Aminotransferase 16 U/L (0-40); Albumin Level 4.9 g/dL (3.5-5.0); Alkaline Phosphatase 83 U/L (39-117); Anion Gap 17 (12-20); Aspartate Amino Transferase 17 U/L (5-37); Bilirubin Total 0.6 mg/dL (0.0-1.0); Blood Urea Nitrogen 16 mg/dL (9-16); Calcium 10.6 mg/dL (8.4-10.2); Carbon Dioxide 24 mmol/L (22-29); Chloride 104 mmol/L (96-108); Creatinine Clr Calc Pharmacy 93.7; Estimated Glomerular Filt Rate > 60; Glucose Random 83 mg/dL (60-115); Magnesium 2.1 mg/dL (1.6-2.6); Sodium 141 mmol/L (135-145)
--- NOTE | 2024-03-09 16:59 | PC.NURSE ---
Evin Jones MD, respiratory, this RN, furniture repair technician, PA at bedside for chest tube insertion
[2024-03-09 17:02] LABS: Troponin-I High Sensitivity 11.6 ng/L (<3.5-35.0)
[2024-03-09] MEDS: propofoL 200 MG/20 ML VIAL 70.7 MG IVPUSH ×2 (17:05→17:13)
[2024-03-09] MEDS: Lidocaine HCl 1 % 10 ML VIAL INFILTRATI (17:10)
--- NOTE | 2024-03-09 17:10 | PC.NURSE ---
Chets tube insertion procedure starting at this time. Time out performed - ARTHUR SCHNEIDER x2, RN, Respiratory, ED Wind Plant Manager at bedside
--- NOTE | 2024-03-09 17:24 | PC.NURSE ---
Chest tube insertion complete by Evin Jones MD. Chest tube to continuous -120mmHg suction per MD verbal orders
[2024-03-09] MEDS: Morphine Sulfate 4 MG/ML CARTRIDGE IVPUSH ×2 (17:26→22:26)
[2024-03-09 17:38] LABS: D Dimer High Sensitivity < 150 NG/ML
--- NOTE | 2024-03-09 18:24 | PC.NURSE ---
Pt. noted to be bradycardic to 45. Pt. is awake, alert and oriented, and states that he feels fine. HR quickly resolved to high 50s. Evin Jones MD notified.
--- NOTE | 2024-03-09 18:26 | PHA.MEDREC ---
Pharmacy Consult ? Medication Reconciliation Pharmacy has completed the medication reconciliation.
--- NOTE | 2024-03-09 22:48 | P.HPHOSP_ITS ---
History of Present Illness Date of Service: 03/09/24 Attending physician on admission: Danielle Ron Chief Complaint: Right-sided chest pain Pt is a 33-year-old male with a PMH significant for?previous pneumothorax in 2020 and cocaine use disorder who presents to the ED with right-sided chest pain, SOB, and VILLELA since yesterday. Pt states symptoms began last night when he was smoking a cigarette and suddenly felt right-sided chest pain and difficulty breathing. Pain at that time was minor and patient went to sleep without thinking much about it. When he awoke this morning pain had significantly increased and he was also complaining of shortness of breath, dyspnea upon exertion, and dry cough. [place] like his throat was closing when he would breathe. Pain covers the entire side of his right chest, and was worse with breathing. Patient currently smokes half a pack of cigarettes daily, as well as marijuana. Also snorts cocaine but is trying to quit, last used 1 week ago. In the ED pt was bradycardic as low as 45 and tachypneic up to 22. Labs were significant for leukocytosis of 13.1 and testing positive for COVID. Stable H& H. No significant electrolyte abnormalities. Renal and hepatic function WNL. D-dimer negative. CXR showed large right pneumothorax with collapse of the right lung. EKG demonstrated normal sinus rhythm with nonspecific intraventricular conduction block, but without significant evidence of ST elevations or depressions. In the ED chest tube was inserted and repeat x-ray showed right lung was fully inflated with only a small residual apical pneumothorax and chest tube in place. Pt was treated with morphine. Pt will be admitted to the hospital for treatment and further observation spontaneous right-sided pneumothorax with chest tube in place. Review of Systems 2 Review of Systems: Right-sided chest pain, increased with walking Shortness of breath, VILLELA Dry cough No fever, chills, nausea, vomiting, abdominal pain PMFSH Medical History Cocaine abuse Pneumothorax Surgical History H/O knee surgery Social History Household Members: Family Household Members Other:: Father Housing: House Do you presently have visiting nurse or other home services: No Alcohol intake: current Alcohol intake frequency: holidays/special occasions only Patient Tobacco Use Status: Current everyday Tobacco user Cigarette Packs Per Day: 1 Smoked in Last 30 Days: Yes Use of substances other than those prescribed or required for medical reasons: Yes Substance Use Type: Crack/Cocaine and Marijuana Substance Use Frequency: Daily Advance Directives: No Advance Directives Information Provided: No Do you have a plan to hurt others: No Plan Nutrition Risks: No Nutritional Risk service: No Current occupational status: disabled Current occupation: rt handed Meds Allergies Allergy/AdvReac Type Severity Reaction Status Date / Time No Known Allergies Allergy Verified 03/09/24 16:01 Active Medications: Current Medications Acetaminophen (Acetaminophen 325 Mg Tablet) 650 mg PO Q6H PRN PRN Reason: Pain, Mild (Pain Scale 1-3), fever or headache Calcium Carbonate (Calcium Carbonate 750 Mg Tab.Chew) 750 mg PO Q4H PRN PRN Reason: Heartburn Magnesium Hydroxide (Milk Of Magnesia 30 Ml Oral.Susp) 30 ml PO DAILY PRN PRN Reason: Constipation Melatonin (Melatonin 3 Mg Tablet) 6 mg PO BEDTIME PRN PRN Reason: Insomnia Morphine Sulfate (Morphine Sulfate 4 Mg/Ml Cartridge) 4 mg IVPUSH Q4H PRN; Protocol PRN Reason: Pain, Severe (Pain Scale 7-10) Ondansetron HCl (Ondansetron Hcl 4 Mg/2 Ml Vial) 4 mg IVPUSH Q8H PRN PRN Reason: Nausea and Vomiting Sodium Chloride (0.9 % Sodium Chloride Flush 3 Ml Syringe) 3 [facility] Medications ?Medication ?Instructions ?Recorded ?Confirmed ?Last Taken ?Type No Known Home Meds 03/09/24 03/09/24 Unknown History Physical Exam 2 Vital Signs and Narrative: Vital Signs: Last Vital Signs Temp 98.3 F 03/09/24 22:21 Pulse 45 L 03/09/24 22:21 Resp 20 03/09/24 22:21 BP 116/82 03/09/24 22:21 Pulse Ox 100 03/09/24 22:21 O2 Del Method Room Air 03/09/24 22:21 BMI result Body Mass Index 21.1 General: AOx3, no acute distress. Looks uncomfortable Resp: CTA bilaterally. Chest tube in place on right side. CVS: S1, S2, RRR GI: +BS, NT, no distention Skin: Warm, dry Neuro: Cranial nerves II-XII grossly intact bilaterally. Motor grossly intact bilaterally Extremities: No edema Psych: Appropriate affect Results Labs 03/09/24 16:23 03/09/24 16:23 Labs: Laboratory Results - last 24 hr 03/09/24 03/09/24 16:06 16:23 MCV 89.6 MCH 30.1 MCHC 33.6 RDW 12.6 Plt Count 283 MPV 9.8 Immature Gran % (Auto) 0.3 Neut % (Auto) 63.9 Lymph % (Auto) 26.9 [place] % (Auto) 8.0 Eos % (Auto) 0.5 Baso % (Auto) 0.4 Lymph # (Auto) 3.5 [place] # (Auto) 1.0 Eos # (Auto) 0.1 Baso # (Auto) 0.1 Abs Immat Gran (auto) 0.04 H Absolute Neuts (auto) 8.4 H Absolute Nucleated RBC 0.000 Nucleated RBC % (auto) 0.0 D-Dimer High Sensitivty < 150 Anion Gap 17 Estim Creat Clear Calc 93.7 Estimated GFR > 60 Random Glucose 83 Calcium 10.6 H D Magnesium 2.1 Total Bilirubin 0.6 AST 17 ALT 16 Alkaline Phosphatase 83 Troponin I High Sens 11.6 Total Protein 9.0 H Albumin 4.9 Influenza Type A (PCR) NEGATIVE Influenza Type B (PCR) NEGATIVE RSV RNA Qual (PCR) NEGATIVE SARS-CoV-2 RNA (RT-PCR) POSITIVE A Imaging Radiologist's Impressions: Impressions Chest X-Ray 03/09/24 16:39 IMPRESSION: Large right pneumothorax with collapse of the right lung This Critical Result was discussed with ARTHUR Naranjo at 5:00 PM on 03/09/2024 and it was ascertained that the content and urgency of the report was understood at the time of direct communication. Chest X-Ray 03/09/24 17:30 IMPRESSION: Interval placement of a right-sided chest tube with only a small residual apical pneumothorax. Assessment and Plan (1) Pneumothorax: Qualifiers: Pneumothorax type: spontaneous, primary Qualified Code(s): J93.11 - Primary spontaneous pneumothorax Status: Acute Plan Pt is a 33-year-old male with a PMH significant for?previous pneumothorax in 2020 and cocaine use disorder who presents to the ED with right-sided chest pain, SOB, and VILLELA since yesterday. Pt will be admitted to the hospital for treatment and further observation spontaneous right-sided pneumothorax with chest tube in place. Right-sided spontaneous pneumothorax Patient with sudden onset right-sided chest pain, SOB, VILLELA last night while smoking a cigarette CXR showed large right pneumothorax with collapse of the right lung Chest tube was placed in the ED with reinflation of right lung with only residual small apical pneumothorax Keep chest tube in place Morphine for pain management Thoracic surgery consult Cocaine use disorder Patient reports trying to quit, last used 1 week ago Addiction medicine consult Nicotine dependence Currently smoking half a pack of cigarettes daily NRT Full Code Attending:?Dr. Ron DVT Prophylaxis: Pneumatic compression devices due to need for possible surgical intervention Pt will require a hospitalization of at least two nights for treatment of?spontaneous pneumothorax with chest tube in place. Quality Stroke Does the patient have a stroke diagnosis?: No VTE Prior VTE?: No VTE Risk Level:: Medical - moderate - high VTE Device Contraindication: N/A - Device Ordered VTE Drug Contraindication: Treatment Not Indicated
[2024-03-10] MEDS: 0.9 % Sodium Chloride Flush 3 ML SYRINGE IVFLUSH ×3 (01:23→20:23)
[2024-03-10] MEDS: Acetaminophen 325 MG TABLET 650 MG PO ×4 (01:24→16:33)
--- NOTE | 2024-03-10 01:59 | PC.NURSE ---
pt refused nicotine patch at this time
[2024-03-10 05:56] LABS: MANUAL DIFF FLAG NO
[2024-03-10 05:57] LABS: Basophils Percent Auto 0.4 % (0-2); Eosinophils Absolute Auto 0.1 X10*3/uL (0.0-0.4); Hematocrit 41.4 % (42.0-52.0); Hemoglobin 14.1 g/dl (14.0-18.0); Imm Gran Abs Auto 0.01 X10*3/uL (0.00-0.03); Imm Gran Pct Auto 0.1 % (0.0-0.4); Lymphocytes Absolute Auto 4.1 X10*3/uL (1.2-4.9); Lymphocytes Percent Auto 45.3 % (20-40); Mean Corpuscular HGB Conc 34.1 g/dl (31.0-36.0); Mean Corpuscular Hemoglobin 30.2 pg (27.0-33.0); Mean Corpuscular Volume 88.7 fL (80.0-98.0); Mean Platelet Volume 9.7 fL (9.4-12.4); Monocytes Absolute Auto 0.8 X10*3/uL (0.1-1.2); Monocytes Percent Auto 8.9 % (2-11); Neutrophils Percent Auto 44.3 % (45-73); Platelet Count 251 X10*3/uL (160-400); Red Blood Count 4.67 X10*6/uL (4.60-5.80); Red Cell Distribution Width 12.7 % (11.0-16.0)
[2024-03-10 06:10] LABS: Anion Gap 14 (12-20); Blood Urea Nitrogen 13 mg/dL (9-16); Carbon Dioxide 27 mmol/L (22-29); Chloride 103 mmol/L (96-108); Creatinine Clr Calc Pharmacy 93.7; Estimated Glomerular Filt Rate > 60; Glucose Random 93 mg/dL (60-115); Potassium 4.6 mmol/L (3.3-5.1); Sodium 139 mmol/L (135-145)
--- NOTE | 2024-03-10 07:11 | P.PNIM_ITS ---
Subjective Subjective Date of Service: 03/10/24 Interval History: f/u on Spontaneous Pneumothorax (PTX ) doing well pain is controlled, no sob Physical Exam 2 Vital Signs: Vital Signs: Last Vital Signs Temp 98.3 F 03/09/24 22:21 Pulse 45 L 03/09/24 22:21 Resp 20 03/09/24 22:21 BP 116/82 03/09/24 22:21 Pulse Ox 100 03/09/24 22:21 O2 Del Method Room Air 03/09/24 22:21 BMI result Body Mass Index 21.1 General: AO X 3, no acute distress Resp: CTA bilateral, right sided chest tube in place CVS: S1,S2,RRR GI: +BS, NT, no distention Skin: No rash Neuro: motor grossly intact Psych: appropriate affect Objective Data Active Medications Acetaminophen (Acetaminophen 325 Mg Tablet) 650 mg PO 0000,0600,1200,1800 [facility] Last Admin: 03/10/24 01:24 Dose: 650 mg Documented By: ALEXX Calcium Carbonate (Calcium Carbonate 750 Mg Tab.Chew) 750 mg PO Q4H PRN PRN Reason: Heartburn Magnesium Hydroxide (Milk Of Magnesia 30 Ml Oral.Susp) 30 ml PO DAILY PRN PRN Reason: Constipation Melatonin (Melatonin 3 Mg Tablet) 6 mg PO BEDTIME PRN PRN Reason: Insomnia Morphine Sulfate (Morphine Sulfate 4 Mg/Ml Cartridge) 4 mg IVPUSH Q4H PRN; Protocol PRN Reason: Pain, Severe (Pain Scale 7-10) Nicotine (Nicotine 14 Mg Patch.Td24) 14 mg TRANSDERMA DAILY [facility] Last Admin: 03/10/24 01:26 Dose: Not Given Documented By: ALEXX Non-Admin Reason: Patient Refused Ondansetron HCl (Ondansetron Hcl 4 Mg/2 Ml Vial) 4 mg IVPUSH Q8H PRN PRN Reason: Nausea and Vomiting Sodium Chloride (0.9 % Sodium Chloride Flush 3 Ml Syringe) 3 ml IVFLUSH QSHIFT [facility] Last Admin: 03/10/24 01:23 Dose: 3 ml Documented By: ALEXX Labs 03/10/24 05:28 03/10/24 05:28 Labs: Laboratory Results - last 24 hr 03/09/24 03/09/24 03/10/24 16:06 16:23 05:28 MCV 89.6 88.7 MCH 30.1 30.2 MCHC 33.6 34.1 RDW 12.6 12.7 Plt Count 283 251 MPV 9.8 9.7 Immature Gran % (Auto) 0.3 0.1 Neut % (Auto) 63.9 44.3 L Lymph % (Auto) 26.9 45.3 H [place] % (Auto) 8.0 8.9 Eos % (Auto) 0.5 1.0 Baso % (Auto) 0.4 0.4 Lymph # (Auto) 3.5 4.1 [place] # (Auto) 1.0 0.8 Eos # (Auto) 0.1 0.1 Baso # (Auto) 0.1 0.0 Abs Immat Gran (auto) 0.04 H 0.01 Absolute Neuts (auto) 8.4 H 4.0 Absolute Nucleated RBC 0.000 0.000 Nucleated RBC % (auto) 0.0 0.0 D-Dimer High Sensitivty < 150 Anion Gap 17 14 Estim Creat Clear Calc 93.7 93.7 Estimated GFR > 60 > 60 Random Glucose 83 93 Calcium 10.6 H D 10.0 Magnesium 2.1 Total Bilirubin 0.6 AST 17 ALT 16 Alkaline Phosphatase 83 Troponin I High Sens 11.6 Total Protein 9.0 H Albumin 4.9 Influenza Type A (PCR) NEGATIVE Influenza Type B (PCR) NEGATIVE RSV RNA Qual (PCR) NEGATIVE SARS-CoV-2 RNA (RT-PCR) POSITIVE A Assessment and Plan (1) Pneumothorax: Status: Acute Plan This is a 33yo M with hx cocaine abuse presenting with acute dyspnea, found to have spontaneous PTX a second episode since 2020 spontaneous rith PTX s/p right chest tube placement in ED Serial CXR, presently trace right apical PTX thoracic surgeon will follow pt for chest tube management pain management, Incentive spirometry Sinus Bradycardia, assymptomatic--presently in 50s EKG showing sinus rythm, no heart block continuous cardiac monitoring ocaine use disorder, reports no use in a week addiction med consult Covid positive assymptomatic covid isolation Nicotine dependence, 1/2 PPD, NRT Full Code DVT Prophylaxis: Pneumatic compression devices due to need for possible surgical intervention need for inpt: PTX with chest tube management Quality Stroke Does the patient have a stroke diagnosis?: No VTE Prior VTE?: No VTE Risk Level:: Medical - moderate - high VTE Device Contraindication: N/A - Device Ordered VTE Drug Contraindication: Treatment Not Indicated
[2024-03-10 07:32] VITALS: BP 118/73; PULSE 40; RESP 14; TEMP 36.9; O2SAT 99
--- NOTE | 2024-03-10 07:57 | PC.NURSE ---
patient sitting up in bed eating breakfast, respirations equal and unlabored. patient having 4/10 right sided pain, medicated per MAR. patient is alert and oriented x4, does not show kendra signs of acute distress, able to make needs known. patient has chest tube in place, connected to low suction, patient has + tidaling in chamber. skin dry and intact
[2024-03-10 09:17] VITALS: BP 124/86; PULSE 56; RESP 18; TEMP 36.2; O2SAT 10
[2024-03-10] MEDS: Morphine Sulfate 4 MG/ML CARTRIDGE IVPUSH ×2 (14:31→20:23)
[2024-03-10 15:22] VITALS: BP 128/77; PULSE 58; RESP 18; TEMP 36.6; O2SAT 100
--- NOTE | 2024-03-10 16:08 | MHC.CM.PN ---
PT ADMITTED, ON [employer] CM ATTEMPTED TO CONTACT PT VIA T/C MULTIPLE TIMES, PHONE RINGS AND THEN GOES SILENT, NO VM PER EMR, PT APPEARS TO LIVE WITH HIS PARENTS AND BE INDEPENDENT WITH CARE HE HAS NO HCP ON FILE NO PCP LISTED-OF NOTE, HE HAD NO PCP LAST ADMISSION IN 2020. DCP TBD CM WILL ATTEMPT TO CONTACT PT AGAIN TOMORROW TO REVIEW IMM
[2024-03-10 19:23] VITALS: BP 125/94; PULSE 51; RESP 20; TEMP 36.4; O2SAT 96
[2024-03-10] MEDS: diphenhydrAMINE HCL 25 MG CAPSULE PO (22:43)
[2024-03-10 23:46] VITALS: BP 132/83; PULSE 56; RESP 18; TEMP 36.6; O2SAT 100
[2024-03-11 03:53] VITALS: BP 132/78; PULSE 80; RESP 18; TEMP 36.1; O2SAT 98
--- NOTE | 2024-03-11 05:08 | PC.NURSE ---
Patient complained of pain overnight pain medications given and effective . He also complained of itchness and MD ordered bendryl that was administered. Patient lung sounds are diminished , chest tube in place with minimal output.Patient slept well overnight vitals stable no respiratory distress noted.
[2024-03-11] MEDS: Acetaminophen 325 MG TABLET 650 MG PO ×3 (06:49→17:05)
[2024-03-11] MEDS: Morphine Sulfate 4 MG/ML CARTRIDGE IVPUSH ×2 (06:49→16:08)
--- NOTE | 2024-03-11 07:40 | HO.THORCONS ---
History of Present Illness Consult details Consult date: 03/11/24 Narrative: Patient is a 33-year-old male who presents here with a recurrent spontaneous right ipsilateral pneumothorax. He had a similar episode a few years ago treated with tube thoracostomy. He presents here with a recurrence. Patient had pigtail catheter placed by ER with good result. Chart was reviewed and patient evaluated. This a.m. chest x-ray unofficially demonstrates no pneumothorax PMFSH Past Medical History Medical History Cocaine abuse Pneumothorax Surgical History Surgical History H/O knee surgery Social History Social History Household Members: Family Household Members Other:: Father Housing: House Do you presently have visiting nurse or other home services: No Alcohol intake: current Alcohol intake frequency: holidays/special occasions only Patient Tobacco Use Status: Current everyday Tobacco user Tobacco use type: Cigarette Cigarette Packs Per Day: 1 Substance Use Type: Crack/Cocaine and Marijuana service: No Current occupational status: disabled Current occupation: rt handed Meds Allergies Allergy/AdvReac Type Severity Reaction Status Date / Time No Known Allergies Allergy Verified 03/09/24 16:01 Active Medications: Current Medications Acetaminophen (Acetaminophen 325 Mg Tablet) 650 mg PO 0000,0600,1200,1800 [facility] Last Admin: 03/11/24 06:49 Dose: 650 mg Calcium Carbonate (Calcium Carbonate 750 Mg Tab.Chew) 750 mg PO Q4H PRN PRN Reason: Heartburn Magnesium Hydroxide (Milk Of Magnesia 30 Ml Oral.Susp) 30 ml PO DAILY PRN PRN Reason: Constipation Melatonin (Melatonin 3 Mg Tablet) 6 mg PO BEDTIME PRN PRN Reason: Insomnia Morphine Sulfate (Morphine Sulfate 4 Mg/Ml Cartridge) 4 mg IVPUSH Q4H PRN; Protocol PRN Reason: Pain, Severe (Pain Scale 7-10) Last Admin: 03/11/24 06:49 Dose: 4 mg Nicotine (Nicotine 14 Mg Patch.Td24) 14 mg TRANSDERMA DAILY [facility] Last Admin: 03/10/24 10:18 Dose: Not Given Ondansetron HCl (Ondansetron Hcl 4 Mg/2 Ml Vial) 4 mg IVPUSH Q8H PRN PRN Reason: Nausea and Vomiting Sodium Chloride (0.9 % Sodium Chloride Flush 3 Ml Syringe) 3 ml IVFLUSH QSHIFT [facility] Last Admin: 03/10/24 20:23 Dose: 3 ml Home Medications ?Medication ?Instructions ?Recorded ?Confirmed ?Last Taken ?Type No Known Home Meds 03/09/24 03/09/24 Unknown History Physical Exam Vital Signs: Vital Signs: Last Vital Signs Temp 97.0 F 03/11/24 03:53 Pulse 80 03/11/24 03:53 Resp 18 03/11/24 03:53 BP 132/78 03/11/24 03:53 Pulse Ox 98 03/11/24 03:53 O2 Del Method Room Air 03/11/24 03:53 BMI result Body Mass Index 21.1 Chest: Other: Chest sounds bilaterally, HS 1 in 2. Chest tube dressing clean dry and intact. No air leak and Pleur-evac. Results Labs 03/10/24 05:28 03/10/24 05:28 Labs: All other labs normal. Assessment and Plan (1) Pneumothorax: Qualifiers: Pneumothorax type: spontaneous, primary Qualified Code(s): J93.11 - Primary spontaneous pneumothorax Status: Acute Plan I discussed with the patient that this is his 2nd episode of spontaneous right pneumothorax. After the 1st episode, there was a proximally 20% chance for recurrence. After a 2nd episode, there was approximate 80% chance of recurrence. 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 I reviewed with the patient that therapeutic options which are to remove the chest tube in the day or 2 or to consider surgical correction of this process with vats possible open blebectomy. Risks, benefits, alternatives of the procedure reviewed with the patient which included but not limited to bleeding, infection, recurrence, numbness, pain, scarring and the patient wishes to proceed. All questions answered. Arrangements were made for this for tomorrow. Procedures Date of Service Date of Service: 03/11/24
--- NOTE | 2024-03-11 07:44 | MHC.SHP ---
Pre-Procedural Eval Section A - 24 Hr Update-Section A only Date of Service: 03/12/24 The patient is an INPATIENT: Yes Changes since office visit: No Cold of Flu in the past 2 weeks, No New Medical Problems, No Changes in Medication and No Patient answered all questions Section B - Complete if H&P > 30 days Chief Complaint: chest pain,sob Allergies: Allergies Allergy/AdvReac Type Severity Reaction Status Date / Time No Known Allergies Allergy Verified 03/09/24 16:01 Plan I have reviewed the history and physical and performed a pertinent physical examination on my patient. No changes have occurred unless specified. Time Spent With Patient Time: Total time managing care of this patient today ____ minutes.
[2024-03-11 08:00] VITALS: BP 109/68; PULSE 53; RESP 18; TEMP 36.7; O2SAT 98
[2024-03-11] MEDS: 0.9 % Sodium Chloride Flush 3 ML SYRINGE IVFLUSH ×2 (08:19→16:18)
--- NOTE | 2024-03-11 09:35 | P.PNIM_ITS ---
Subjective Subjective Date of Service: 03/11/24 Interval History: f/u on Spontaneous Pneumothorax (PTX ) doing well pain is controlled, no sob, recent CXR reviewed show small apical PTX Physical Exam 2 Vital Signs: Vital Signs: Last Vital Signs Temp 98.0 F 03/11/24 08:00 Pulse 53 03/11/24 08:00 Resp 18 03/11/24 08:00 BP 109/68 03/11/24 08:00 Pulse Ox 98 03/11/24 08:00 O2 Del Method Room Air 03/11/24 08:00 BMI result Body Mass Index 21.1 General: AO X 3, no acute distress Resp: CTA bilateral, right sided chest tube in place CVS: S1,S2,RRR GI: +BS, NT, no distention Skin: No rash Neuro: motor grossly intact Psych: appropriate affect Objective Data Active Medications Acetaminophen (Acetaminophen 325 Mg Tablet) 650 mg PO 0000,0600,1200,1800 [facility] Last Admin: 03/11/24 06:49 Dose: 650 mg Documented By: ERMELINDA Calcium Carbonate (Calcium Carbonate 750 Mg Tab.Chew) 750 mg PO Q4H PRN PRN Reason: Heartburn Cefazolin Sodium/Dextrose (Ancef) 2 gm in 50 mls @ 100 mls/hr IV PREOP ONE Stop: 03/12/24 07:29 Magnesium Hydroxide (Milk Of Magnesia 30 Ml Oral.Susp) 30 ml PO DAILY PRN PRN Reason: Constipation Melatonin (Melatonin 3 Mg Tablet) 6 mg PO BEDTIME PRN PRN Reason: Insomnia Morphine Sulfate (Morphine Sulfate 4 Mg/Ml Cartridge) 4 mg IVPUSH Q4H PRN; Protocol PRN Reason: Pain, Severe (Pain Scale 7-10) Last Admin: 03/11/24 06:49 Dose: 4 mg Documented By: ERMELINDA Nicotine (Nicotine 14 Mg Patch.Td24) 14 mg TRANSDERMA DAILY [facility] Last Admin: 03/11/24 08:18 Dose: Not Given Documented By: HOWIE Non-Admin Reason: patient declined medication Ondansetron HCl (Ondansetron Hcl 4 Mg/2 Ml Vial) 4 mg IVPUSH Q8H PRN PRN Reason: Nausea and Vomiting Sodium Chloride (0.9 % Sodium Chloride Flush 3 Ml Syringe) 3 ml IVFLUSH QSHIFT [facility] Last Admin: 03/11/24 08:19 Dose: 3 ml Documented By: HOWIE Labs 03/10/24 05:28 03/10/24 05:28 Assessment and Plan (1) Pneumothorax: Status: Acute Plan This is a 33yo M with hx cocaine abuse presenting with acute dyspnea, found to have spontaneous PTX a second episode since 2020 recurrent spontaneous rith PTX s/p right chest tube placement in ED Serial CXR, presently trace right apical PTX thoracic surgeon planing VATs and blebectomy tomorrow pain management, Incentive spirometry Sinus Bradycardia, assymptomatic--presently in 50s EKG showing sinus rythm, no heart block continuous cardiac monitoring cocaine use disorder, reports no use in a week addiction med consult.. Monitor for withdrawal symptoms Covid positive assymptomatic covid isolation Nicotine dependence, 1/2 PPD, NRT Full Code DVT Prophylaxis: Pneumatic compression devices due to need for possible surgical intervention need for inpt: PTX with chest tube management Quality Stroke Does the patient have a stroke diagnosis?: No VTE Prior VTE?: No VTE Risk Level:: Medical - moderate - high VTE Device Contraindication: N/A - Device Ordered VTE Drug Contraindication: Treatment Not Indicated
--- NOTE | 2024-03-11 09:37 | HO.ADDICT_ITS ---
History of Present Illness Date of Service: 03/11/2024 Chief Complaint: chest pain,sob Reason for Consult: reported cocaine use Sources of Information: patient interviewed and chart reviewed HPI Narrative: Patient medically admitted with spontaneous pneumothorax. Consult requested as patient reported cocaine use Seen in room 472. Awake, alert, pleasant and engaged in interview Reporting cocaine is occasional and not problematic Reports use at most every 3-4 months Denies any other substance use, including alcohol He does report smoking significant amounts of both cannabis and tobacco Identifies increasing stressors at home Discussed how smoking can increase incidence of pneumothorax. Discussed risk reduction strategies related to smoking Review of Systems Constitutional: Reports as per HPI and Reports other (discomfort at chest tube site) Diagnostics Vital Signs (24Hr): Vital Signs - 24 hr 03/10/24 15:22 03/10/24 19:23 03/10/24 23:46 Temperature 97.9 F 97.6 F 97.9 F Pulse Rate 58 51 56 Respiratory Rate 18 20 18 Blood Pressure 128/77 125/94 H 132/83 Pulse Oximetry 100 96 100 Oxygen Delivery Method Room Air Room Air Room Air 03/11/24 03:53 03/11/24 08:00 Temperature 97.0 F 98.0 F Pulse Rate 80 53 Respiratory Rate 18 18 Blood Pressure 132/78 109/68 Pulse Oximetry 98 98 Oxygen Delivery Method Room Air Room Air BMI result Body Mass Index 21.1 Labs 03/10/24 05:28 03/10/24 05:28 Labs: Laboratory Results - last 48 hr 03/09/24 03/09/24 03/10/24 16:06 16:23 05:28 WBC 13.1 H 9.0 RBC 5.02 4.67 Hgb 15.1 14.1 Hct 45.0 41.4 L MCV 89.6 88.7 MCH 30.1 30.2 MCHC 33.6 34.1 RDW 12.6 12.7 Plt Count 283 251 MPV 9.8 9.7 Immature Gran % (Auto) 0.3 0.1 Neut % (Auto) 63.9 44.3 L Lymph % (Auto) 26.9 45.3 H [place] % (Auto) 8.0 8.9 Eos % (Auto) 0.5 1.0 Baso % (Auto) 0.4 0.4 Lymph # (Auto) 3.5 4.1 [place] # (Auto) 1.0 0.8 Eos # (Auto) 0.1 0.1 Baso # (Auto) 0.1 0.0 Abs Immat Gran (auto) 0.04 H 0.01 Absolute Neuts (auto) 8.4 H 4.0 Absolute Nucleated RBC 0.000 0.000 Nucleated RBC % (auto) 0.0 0.0 D-Dimer High Sensitivty < 150 Sodium 141 139 Potassium 4.0 4.6 Chloride 104 103 Carbon Dioxide 24 27 Anion Gap 17 14 BUN 16 13 Creatinine 1.11 1.11 Estim Creat Clear Calc 93.7 93.7 Estimated GFR > 60 > 60 Random Glucose 83 93 Calcium 10.6 H D 10.0 Magnesium 2.1 Total Bilirubin 0.6 AST 17 ALT 16 Alkaline Phosphatase 83 Troponin I High Sens 11.6 Total Protein 9.0 H Albumin 4.9 Influenza Type A (PCR) NEGATIVE Influenza Type B (PCR) NEGATIVE RSV RNA Qual (PCR) NEGATIVE SARS-CoV-2 RNA (RT-PCR) POSITIVE A Imaging Radiology Impressions: ITS Impressions Chest X-Ray 03/09/24 16:39 IMPRESSION: Large right pneumothorax with collapse of the right lung This Critical Result was discussed with ARTHUR Naranjo at 5:00 PM on 03/09/2024 and it was ascertained that the content and urgency of the report was understood at the time of direct communication. Chest X-Ray 03/09/24 17:30 IMPRESSION: Interval placement of a right-sided chest tube with only a small residual apical pneumothorax. Chest X-Ray 03/10/24 07:30 IMPRESSION: Right-sided chest tube remains in place with stable trace residual right apical pneumothorax. Mental Status Exam Mental Status Exam Patient Appearance: Appropriate Level of Consciousness: Awake, Appropriate and Alert Patient Behavior: Appropriate and Cooperative Medications Medications Current Medications Acetaminophen (Acetaminophen 325 Mg Tablet) 650 mg PO 0000,0600,1200,1800 [facility] Last Admin: 03/11/24 06:49 Dose: 650 mg Calcium Carbonate (Calcium Carbonate 750 Mg Tab.Chew) 750 mg PO Q4H PRN PRN Reason: Heartburn Cefazolin Sodium/Dextrose (Ancef) 2 gm in 50 mls @ 100 mls/hr IV PREOP ONE Stop: 03/12/24 07:29 Magnesium Hydroxide (Milk Of Magnesia 30 Ml Oral.Susp) 30 ml PO DAILY PRN PRN Reason: Constipation Melatonin (Melatonin 3 Mg Tablet) 6 mg PO BEDTIME PRN PRN Reason: Insomnia Morphine Sulfate (Morphine Sulfate 4 Mg/Ml Cartridge) 4 mg IVPUSH Q4H PRN; Protocol PRN Reason: Pain, Severe (Pain Scale 7-10) Last Admin: 03/11/24 06:49 Dose: 4 mg Nicotine (Nicotine 14 Mg Patch.Td24) 14 mg TRANSDERMA DAILY [facility] Last Admin: 03/11/24 08:20 Dose: Not Given Ondansetron HCl (Ondansetron Hcl 4 Mg/2 Ml Vial) 4 mg IVPUSH Q8H PRN PRN Reason: Nausea and Vomiting Sodium Chloride (0.9 % Sodium Chloride Flush 3 Ml Syringe) 3 ml IVFLUSH QSHIFT [facility] Last Admin: 03/11/24 08:19 Dose: 3 ml Allergies Allergies Allergy/AdvReac Type Severity Reaction Status Date / Time No Known Allergies Allergy Verified 03/09/24 16:01 Assessment & Plan Assessment & Plan (1) Cannabis use disorder: Status: Acute Code(s): F12.90 - Cannabis use, unspecified, uncomplicated Assessment and Plan: * risk reduction discussion * patient hoping to reduce amount he smokes or switching modalities (edibles) * cocaine use not problematic and at most 3x/year (per his report) * no follow up indicated at this time Total time managing care of this patient today __35__ minutes. [facility] Past Medical History Medical History (Updated 03/11/24 @ 21:04 by Mary Hargrove CNP) Cocaine abuse Pneumothorax Surgical History Surgical History H/O knee surgery Social History Social History Household Members: Family Household Members Other:: Father Housing: House Do you presently have visiting nurse or other home services: No Alcohol intake: current Alcohol intake frequency: holidays/special occasions only Patient Tobacco Use Status: Current everyday Tobacco user Tobacco use type: Cigarette Cigarette Packs Per Day: 1 Substance Use Type: Crack/Cocaine and Marijuana service: No Current occupational status: disabled Current occupation: rt handed
--- NOTE | 2024-03-11 12:53 | MHC.CM.PN ---
IMM 03/11. Pt lives at home with his father. Pts mother will transport him home at discharge. Has no HCP. No PCP.
[2024-03-11 16:00] VITALS: BP 118/73; PULSE 61; RESP 18; TEMP 37.3; O2SAT 100
[2024-03-11 19:06] LABS: COVID-19 Test Positive (Negative); IDNOW Serial# 08D9AD1C
[2024-03-11 19:51] VITALS: BP 136/68; PULSE 61; RESP 20; TEMP 36.9; O2SAT 99
[2024-03-11] MEDS: diphenhydrAMINE HCL 25 MG CAPSULE PO (22:30)
[2024-03-12 03:28] VITALS: BP 113/78; PULSE 69; RESP 20; TEMP 36.9; O2SAT 100
[2024-03-12] MEDS: Acetaminophen 325 MG TABLET 650 MG PO ×3 (06:46→16:40)
[2024-03-12 07:21] VITALS: BP 130/86; PULSE 50; RESP 18; TEMP 36.8; O2SAT 100
--- NOTE | 2024-03-12 10:41 | HO.PM.IMPN ---
Subjective Subjective Date of Service: 03/12/24 Interval History: f/u on Spontaneous Pneumothorax (PTX ) doing well pain is controlled, no sob, recent CXR reviewed show small apical PTX Physical Exam Vital Signs: Vital Signs: Last Vital Signs Temp 98.3 F 03/12/24 07:21 Pulse 50 03/12/24 07:21 Resp 18 03/12/24 07:21 BP 130/86 03/12/24 07:21 Pulse Ox 100 03/12/24 07:21 O2 Del Method Room Air 03/12/24 07:21 BMI result Body Mass Index 21.1 General: AO X 3, no acute distress Resp: CTA bilateral, right sided chest tube in place CVS: S1,S2,RRR GI: +BS, NT, no distention Skin: No rash Neuro: motor grossly intact Psych: appropriate affect Objective Data Active Medications Acetaminophen (Acetaminophen 325 Mg Tablet) 650 mg PO 0000,0600,1200,1800 [facility] Last Admin: 03/12/24 06:46 Dose: 650 mg Documented By: ERMELINDA Calcium Carbonate (Calcium Carbonate 750 Mg Tab.Chew) 750 mg PO Q4H PRN PRN Reason: Heartburn Diphenhydramine HCl (Diphenhydramine Hcl 25 Mg Capsule) 25 mg PO Q6H PRN PRN Reason: Itchiness Last Admin: 03/11/24 22:30 Dose: 25 mg Documented By: ERMELINDA Magnesium Hydroxide (Milk Of Magnesia 30 Ml Oral.Susp) 30 ml PO DAILY PRN PRN Reason: Constipation Melatonin (Melatonin 3 Mg Tablet) 6 mg PO BEDTIME PRN PRN Reason: Insomnia Morphine Sulfate (Morphine Sulfate 4 Mg/Ml Cartridge) 4 mg IVPUSH Q4H PRN; Protocol PRN Reason: Pain, Severe (Pain Scale 7-10) Last Admin: 03/11/24 16:08 Dose: 4 mg Documented By: HOWIE Nicotine (Nicotine 14 Mg Patch.Td24) 14 mg TRANSDERMA DAILY [facility] Last Admin: 03/11/24 08:18 Dose: Not Given Documented By: HOWIE Non-Admin Reason: patient declined medication Ondansetron HCl (Ondansetron Hcl 4 Mg/2 Ml Vial) 4 mg IVPUSH Q8H PRN PRN Reason: Nausea and Vomiting Sodium Chloride (0.9 % Sodium Chloride Flush 3 Ml Syringe) 3 ml IVFLUSH QSHIFT [facility] Last Admin: 03/12/24 04:40 Dose: Not Given Documented By: ERMELINDA Non-Admin Reason: Patient Asleep Labs 03/10/24 05:28 03/10/24 05:28 Labs: Laboratory Results - last 24 hr 03/11/24 18:45 COVID-19 ([facility]) Positive A COVID-19 Clin Com See Note Assessment and Plan (1) Pneumothorax: Status: Acute Plan This is a 33yo M with hx cocaine abuse presenting with acute dyspnea, found to have spontaneous PTX a second episode since 2020 recurrent spontaneous rith PTX s/p right chest tube placement in ED Serial CXR, presently trace right apical PTX lungs collapsed on water seal. Need blebectomy pain management, Incentive spectrometry Sinus Bradycardia, asymptomatic--presently in 50s EKG showing sinus rhythm, no heart block continuous cardiac monitoring cocaine use disorder, reports no use in a week addiction med consult.. Monitor for withdrawal symptoms Covid positive asymptomatic covid isolation Nicotine dependence, 1/2 PPD, NRT Full Code DVT Prophylaxis: Pneumatic compression devices due to need for possible surgical intervention, start heparin or Lovenox if surgery is not imminent need for inpt: PTX with chest tube management Quality Stroke Does the patient have a stroke diagnosis?: No VTE Prior VTE?: No VTE Risk Level:: Medical - moderate - high VTE Device Contraindication: N/A - Device Ordered VTE Drug Contraindication: Treatment Not Indicated
[2024-03-12] MEDS: 0.9 % Sodium Chloride Flush 3 ML SYRINGE IVFLUSH ×3 (10:59→19:29)
--- NOTE | 2024-03-12 11:19 | P.PNIM_ITS ---
Subjective Subjective Date of Service: 03/12/24 Interval History: f/u on Spontaneous Pneumothorax (PTX ) doing well pain is controlled, no sob, recent CXR reviewed still show small apical PTX Physical Exam 2 Vital Signs: Vital Signs: Last Vital Signs Temp 98.3 F 03/12/24 07:21 Pulse 50 03/12/24 07:21 Resp 18 03/12/24 07:21 BP 130/86 03/12/24 07:21 Pulse Ox 100 03/12/24 07:21 O2 Del Method Room Air 03/12/24 07:21 BMI result Body Mass Index 21.1 General: AO X 3, no acute distress Resp: CTA bilateral, right sided chest tube in place CVS: S1,S2,RRR GI: +BS, NT, no distention Skin: No rash Neuro: motor grossly intact Psych: appropriate affect Objective Data Active Medications Acetaminophen (Acetaminophen 325 Mg Tablet) 650 mg PO 0000,0600,1200,1800 [facility] Last Admin: 03/12/24 10:59 Dose: 650 mg Documented By: HOWIE Calcium Carbonate (Calcium Carbonate 750 Mg Tab.Chew) 750 mg PO Q4H PRN PRN Reason: Heartburn Diphenhydramine HCl (Diphenhydramine Hcl 25 Mg Capsule) 25 mg PO Q6H PRN PRN Reason: Itchiness Last Admin: 03/11/24 22:30 Dose: 25 mg Documented By: ERMELINDA Magnesium Hydroxide (Milk Of Magnesia 30 Ml Oral.Susp) 30 ml PO DAILY PRN PRN Reason: Constipation Melatonin (Melatonin 3 Mg Tablet) 6 mg PO BEDTIME PRN PRN Reason: Insomnia Morphine Sulfate (Morphine Sulfate 4 Mg/Ml Cartridge) 4 mg IVPUSH Q4H PRN; Protocol PRN Reason: Pain, Severe (Pain Scale 7-10) Last Admin: 03/11/24 16:08 Dose: 4 mg Documented By: HOWIE Nicotine (Nicotine 14 Mg Patch.Td24) 14 mg TRANSDERMA DAILY [facility] Last Admin: 03/11/24 08:18 Dose: Not Given Documented By: HOWIE Non-Admin Reason: patient declined medication Ondansetron HCl (Ondansetron Hcl 4 Mg/2 Ml Vial) 4 mg IVPUSH Q8H PRN PRN Reason: Nausea and Vomiting Sodium Chloride (0.9 % Sodium Chloride Flush 3 Ml Syringe) 3 ml IVFLUSH QSHIFT [facility] Last Admin: 03/12/24 10:59 Dose: 3 ml Documented By: HOWIE Labs 03/10/24 05:28 03/10/24 05:28 Labs: Laboratory Results - last 24 hr 03/11/24 18:45 COVID-19 ([facility]) Positive A COVID-19 Clin Com See Note Assessment and Plan (1) Pneumothorax: Status: Acute Plan This is a 33yo M with hx cocaine abuse presenting with acute dyspnea, found to have spontaneous PTX a second episode since 2020 recurrent spontaneous rith PTX s/p right chest tube placement in ED Serial CXR, presently trace right apical PTX lungs collapsed on water seal, so will likely benefit from VATS and blebs resection pain management, Incentive spectrometry Sinus Bradycardia, asymptomatic--presently in 50s EKG showing sinus rhythm, no heart block continuous cardiac monitoring cocaine use disorder, reports no use in a week addiction med consult.. Monitor for withdrawal symptoms Covid positive asymptomatic but repeat still positive covid isolation Nicotine dependence, 1/2 PPD, NRT Full Code DVT Prophylaxis: Pneumatic compression devices due to need for possible surgical intervention, start heparin or Lovenox if surgery is not imminent need for inpt: PTX with chest tube management Quality Stroke Does the patient have a stroke diagnosis?: No VTE Prior VTE?: No VTE Risk Level:: Medical - moderate - high VTE Device Contraindication: N/A - Device Ordered VTE Drug Contraindication: Treatment Not Indicated
[2024-03-12] MEDS: Morphine Sulfate 4 MG/ML CARTRIDGE IVPUSH ×2 (12:17→19:28)
[2024-03-12 15:23] VITALS: BP 134/85; PULSE 78; RESP 18; TEMP 36.3; O2SAT 98
[2024-03-12] MEDS: Enoxaparin Sodium 40 MG/0.4 ML SYRINGE SUBCUT (17:11)
[2024-03-12 18:53] VITALS: BP 124/74; PULSE 59; RESP 18; TEMP 37; O2SAT 99
[2024-03-12 23:05] VITALS: BP 126/81; PULSE 69; RESP 16; TEMP 36.6; O2SAT 98
[2024-03-13] MEDS: Acetaminophen 325 MG TABLET 650 MG PO ×4 (01:31→17:52)
[2024-03-13] MEDS: 0.9 % Sodium Chloride Flush 3 ML SYRINGE IVFLUSH ×2 (01:32→21:25)
[2024-03-13 03:27] VITALS: BP 117/70; PULSE 52; RESP 20; TEMP 36.6; O2SAT 99
--- NOTE | 2024-03-13 06:33 | HO.PM.IMPN ---
Subjective Subjective Date of Service: 03/13/24 Interval History: f/u on Spontaneous Pneumothorax (PTX ) doing well pain is controlled, no sob. CXR still show trace apical PTX. Has no symptoms Physical Exam Vital Signs: Vital Signs: Last Vital Signs Temp 97.8 F 03/13/24 03:27 Pulse 52 03/13/24 03:27 Resp 20 03/13/24 03:27 BP 117/70 03/13/24 03:27 Pulse Ox 99 03/13/24 03:27 O2 Del Method Room Air 03/13/24 03:27 BMI result Body Mass Index 21.1 General: AO X 3, no acute distress Resp: CTA bilateral, right sided chest tube in place CVS: S1,S2,RRR GI: +BS, NT, no distention Skin: No rash Neuro: motor grossly intact Psych: appropriate affect Objective Data Active Medications Acetaminophen (Acetaminophen 325 Mg Tablet) 650 mg PO 0000,0600,1200,1800 [facility] Last Admin: 03/13/24 06:28 Dose: 650 mg Documented By: ERMELINDA Calcium Carbonate (Calcium Carbonate 750 Mg Tab.Chew) 750 mg PO Q4H PRN PRN Reason: Heartburn Diphenhydramine HCl (Diphenhydramine Hcl 25 Mg Capsule) 25 mg PO Q6H PRN PRN Reason: Itchiness Last Admin: 03/11/24 22:30 Dose: 25 mg Documented By: ERMELINDA Enoxaparin Sodium (Enoxaparin Sodium 40 Mg/0.4 Ml Syringe) 40 mg SUBCUT Q24H [facility] Last Admin: 03/12/24 17:11 Dose: 40 mg Documented By: HOWIE Magnesium Hydroxide (Milk Of Magnesia 30 Ml Oral.Susp) 30 ml PO DAILY PRN PRN Reason: Constipation Melatonin (Melatonin 3 Mg Tablet) 6 mg PO BEDTIME PRN PRN Reason: Insomnia Morphine Sulfate (Morphine Sulfate 4 Mg/Ml Cartridge) 4 mg IVPUSH Q4H PRN; Protocol PRN Reason: Pain, Severe (Pain Scale 7-10) Last Admin: 03/12/24 19:28 Dose: 4 mg Documented By: ERMELINDA Nicotine (Nicotine 14 Mg Patch.Td24) 14 mg TRANSDERMA DAILY [facility] Last Admin: 03/11/24 08:18 Dose: Not Given Documented By: HOWIE Non-Admin Reason: patient declined medication Ondansetron HCl (Ondansetron Hcl 4 Mg/2 Ml Vial) 4 mg IVPUSH Q8H PRN PRN Reason: Nausea and Vomiting Sodium Chloride (0.9 % Sodium Chloride Flush 3 Ml Syringe) 3 ml IVFLUSH QSHIFT [facility] Last Admin: 03/13/24 01:32 Dose: 3 ml Documented By: ERMELINDA Labs 03/13/24 07:53 03/13/24 07:53 Assessment and Plan (1) Pneumothorax: Status: Acute Plan This is a 33yo M with hx cocaine abuse presenting with acute dyspnea, found to have spontaneous PTX a second episode since 2020 recurrent spontaneous right PTX s/p right chest tube placement in ED Serial CXR, presently trace right apical PTX lungs collapsed on water seal, so will likely benefit from VATS and blebs resection pain management, Incentive spectrometry VATs/blebectomy on 03/14/[address] Montes Sinus Bradycardia, asymptomatic--presently in 50s EKG showing sinus rhythm, no heart block continuous cardiac monitoring cocaine use disorder, reports no use in a week addiction med consult.. No signs of withdrawal Covid positive asymptomatic but repeat still positive covid isolation Nicotine dependence, 1/2 PPD, NRT Full Code DVT Prophylaxis: Pneumatic compression, added Lovenox due to prolonged imobility need for inpt: PTX with chest tube management Quality Stroke Does the patient have a stroke diagnosis?: No VTE Prior VTE?: No VTE Risk Level:: Medical - moderate - high VTE Device Contraindication: N/A - Device Ordered VTE Drug Contraindication: Treatment Not Indicated
[2024-03-13 07:51] VITALS: BP 119/76; PULSE 57; RESP 18; TEMP 36.7; O2SAT 98
[2024-03-13 08:26] LABS: Hematocrit 43.4 % (42.0-52.0); Hemoglobin 14.8 g/dl (14.0-18.0); Mean Corpuscular HGB Conc 34.1 g/dl (31.0-36.0); Mean Corpuscular Hemoglobin 30.3 pg (27.0-33.0); Mean Corpuscular Volume 88.8 fL (80.0-98.0); Mean Platelet Volume 9.8 fL (9.4-12.4); Platelet Count 302 X10*3/uL (160-400); Red Blood Count 4.89 X10*6/uL (4.60-5.80); Red Cell Distribution Width 12.2 % (11.0-16.0); White Blood Count 8.5 X10*3/uL (4.8-10.8)
[2024-03-13 08:40] LABS: Anion Gap 11 (12-20); Blood Urea Nitrogen 11 mg/dL (9-16); Calcium 9.9 mg/dL (8.4-10.2); Carbon Dioxide 30 mmol/L (22-29); Chloride 101 mmol/L (96-108); Creatinine Clr Calc Pharmacy 114.3; Estimated Glomerular Filt Rate > 60; Glucose Random 86 mg/dL (60-115); Sodium 138 mmol/L (135-145)
--- NOTE | 2024-03-13 14:45 | MHC.CM.PN ---
EMR reviewed and per MD rounds, pt is not medically cleared for discharge due to ongoing management of pneumothorax with chest tube in place.
[2024-03-13 15:00] VITALS: BP 113/71; PULSE 60; RESP 20; TEMP 36.5; O2SAT 100
[2024-03-13] MEDS: Morphine Sulfate 4 MG/ML CARTRIDGE IVPUSH ×2 (15:31→21:24)
--- NOTE | 2024-03-13 17:36 | PM.PNTS ---
Subjective Subjective Date of Service: 03/14/24 Interval history: Discussed with the anesthesia and patient will undergo VATS right lumpectomy tomorrow morning. Patient has persistent pneumothorax requiring intervention. I discussed with the patient and he is content the procedure will be done on this admission. He has no new respiratory issues or complaints. Physical Exam Vital Signs: Vital Signs: Last Vital Signs Temp 97.7 F 03/13/24 15:00 Pulse 60 03/13/24 15:00 Resp 20 03/13/24 15:00 BP 113/71 03/13/24 15:00 Pulse Ox 100 03/13/24 15:00 O2 Del Method Room Air 03/13/24 15:00 BMI result Body Mass Index 21.1 Chest: Other: Chest tube dressing clean dry and intact. Pleur-evac minimal output with small air leak. Procedures Date of Service Date of Service: 03/14/24 Progress Note: A&P Assessment and plan (1) Recurrent spontaneous pneumothorax: Status: Acute Plan For right VATS possible open blebectomy tomorrow. Risks, benefits, alternatives were already reviewed with the patient and already documented. Consent was also signed. Time Spent With Patient Time: Total time managing care of this patient today ____ minutes. Quality Stroke Does the patient have a stroke diagnosis?: No VTE Prior VTE?: No VTE Risk Level:: Medical - moderate - high VTE Device Contraindication: N/A - Device Ordered VTE Drug Contraindication: Treatment Not Indicated
[2024-03-13] MEDS: Enoxaparin Sodium 40 MG/0.4 ML SYRINGE SUBCUT (17:53)
[2024-03-13 19:08] VITALS: BP 139/74; PULSE 64; RESP 20; TEMP 36.3; O2SAT 99
[2024-03-14] VITALS (13 sets, daily range): BP systolic 101–178; BP diastolic 71–115; PULSE 55–86; RESP 16–20; TEMP 36–36.8; O2SAT 97–100
--- NOTE | 2024-03-14 08:55 | P.CONAN_ITS ---
HPI - Anesthesia Eval Consult details Narrative: 33 yo M admitted with recurrent spontaneous pneumothorax s/p right chest tube. Covid positive. PMFSH Active Problems Active Problems: All Active Problems Recurrent spontaneous pneumothorax (Acute) Cannabis use disorder (Acute) Sprain of anterior cruciate ligament of right knee (Acute) Pneumothorax (Acute) Past Medical History Medical History (Updated 03/13/24 @ 17:38 by Louie Montes MD) Cocaine abuse Pneumothorax Family History Family history of problems with anesthesia: No Surgical History Surgical History H/O knee surgery History of Problems with Anesthesia: No Social History Social History Household Members: Family Household Members Other:: Father Housing: House Do you presently have visiting nurse or other home services: No Alcohol intake: current Alcohol intake frequency: holidays/special occasions only Patient Tobacco Use Status: Current everyday Tobacco user Tobacco use type: Cigarette Cigarette Packs Per Day: 1 Substance Use Type: Crack/Cocaine and Marijuana service: No Current occupational status: disabled Current occupation: rt handed Meds Allergies Allergy/AdvReac Type Severity Reaction Status Date / Time No Known Allergies Allergy Verified 03/09/24 16:01 Active Medications: Current Medications Acetaminophen (Acetaminophen 325 Mg Tablet) 650 mg PO 0000,0600,1200,1800 [facility] Last Admin: 03/14/24 06:00 Dose: Not Given Calcium Carbonate (Calcium Carbonate 750 Mg Tab.Chew) 750 mg PO Q4H PRN PRN Reason: Heartburn Diphenhydramine HCl (Diphenhydramine Hcl 25 Mg Capsule) 25 mg PO Q6H PRN PRN Reason: Itchiness Last Admin: 03/11/24 22:30 Dose: 25 mg Enoxaparin Sodium (Enoxaparin Sodium 40 Mg/0.4 Ml Syringe) 40 mg SUBCUT Q24H [facility] Last Admin: 03/13/24 17:53 Dose: 40 mg Magnesium Hydroxide (Milk Of Magnesia 30 Ml Oral.Susp) 30 ml PO DAILY PRN PRN Reason: Constipation Melatonin (Melatonin 3 Mg Tablet) 6 mg PO BEDTIME PRN PRN Reason: Insomnia Morphine Sulfate (Morphine Sulfate 4 Mg/Ml Cartridge) 4 mg IVPUSH Q4H PRN; Protocol PRN Reason: Pain, Severe (Pain Scale 7-10) Last Admin: 03/13/24 21:24 Dose: 4 mg Nicotine (Nicotine 14 Mg Patch.Td24) 14 mg TRANSDERMA DAILY [facility] Last Admin: 03/13/24 08:38 Dose: Not Given Ondansetron HCl (Ondansetron Hcl 4 Mg/2 Ml Vial) 4 mg IVPUSH Q8H PRN PRN Reason: Nausea and Vomiting Sodium Chloride (0.9 % Sodium Chloride Flush 3 Ml Syringe) 3 ml IVFLUSH QSHIFT [facility] Last Admin: 03/13/24 21:25 Dose: 3 ml Home Medications ?Medication ?Instructions ?Recorded ?Confirmed ?Last Taken ?Type No Known Home Meds 03/09/24 03/09/24 Unknown History Exam Exam Date and Time: March 14, [id number] Height,Weight and Vital Signs: Height 6 ft Weight 70.7 kg Last Vital Signs Temp 97.6 F 03/14/24 07:36 Pulse 55 03/14/24 07:36 Resp 18 03/14/24 07:36 BP 107/71 03/14/24 07:36 Pulse Ox 100 03/14/24 07:36 O2 Del Method Room Air 03/14/24 07:36 Pertinent Lab Results Pertinent Lab Results: Laboratory Tests 03/09/24 03/09/24 03/10/24 16:06 16:23 05:28 WBC 13.1 H 9.0 RBC 5.02 4.67 Hgb 15.1 14.1 Hct 45.0 41.4 L MCV 89.6 88.7 MCH 30.1 30.2 MCHC 33.6 34.1 RDW 12.6 12.7 Plt Count 283 251 MPV 9.8 9.7 Immature Gran % (Auto) 0.3 0.1 Neut % (Auto) 63.9 44.3 L Lymph % (Auto) 26.9 45.3 H [place] % (Auto) 8.0 8.9 Eos % (Auto) 0.5 1.0 Baso % (Auto) 0.4 0.4 Lymph # (Auto) 3.5 4.1 [place] # (Auto) 1.0 0.8 Eos # (Auto) 0.1 0.1 Baso # (Auto) 0.1 0.0 Abs Immat Gran (auto) 0.04 H 0.01 Absolute Neuts (auto) 8.4 H 4.0 Absolute Nucleated RBC 0.000 0.000 Nucleated RBC % (auto) 0.0 0.0 PT INR D-Dimer High Sensitivty < 150 Sodium 141 139 Potassium 4.0 4.6 Chloride 104 103 Carbon Dioxide 24 27 Anion Gap 17 14 BUN 16 13 Creatinine 1.11 1.11 Estim Creat Clear Calc 93.7 93.7 Estimated GFR > 60 > 60 Random Glucose 83 93 Calcium 10.6 H D 10.0 Magnesium 2.1 Total Bilirubin 0.6 AST 17 ALT 16 Alkaline Phosphatase 83 Troponin I High Sens 11.6 Total Protein 9.0 H Albumin 4.9 COVID-19 ([facility]) COVID-19 Clin Com Influenza Type A (PCR) NEGATIVE Influenza Type B (PCR) NEGATIVE RSV RNA Qual (PCR) NEGATIVE SARS-CoV-2 RNA (RT-PCR) POSITIVE A 03/11/24 03/13/24 18:45 07:53 WBC 8.5 RBC 4.89 Hgb 14.8 Hct 43.4 MCV 88.8 MCH 30.3 MCHC 34.1 RDW 12.2 Plt Count 302 MPV 9.8 Immature Gran % (Auto) Neut % (Auto) Lymph % (Auto) [place] % (Auto) Eos % (Auto) Baso % (Auto) Lymph # (Auto) [place] # (Auto) Eos # (Auto) Baso # (Auto) Abs Immat Gran (auto) Absolute Neuts (auto) Absolute Nucleated RBC 0.000 Nucleated RBC % (auto) 0.0 PT 12.0 INR 1.0 D-Dimer High Sensitivty Sodium 138 Potassium 4.0 Chloride 101 Carbon Dioxide 30 H Anion Gap 11 L BUN 11 Creatinine 0.91 Estim Creat Clear Calc 114.3 Estimated GFR > 60 Random Glucose 86 Calcium 9.9 Magnesium Total Bilirubin AST ALT Alkaline Phosphatase Troponin I High Sens Total Protein Albumin COVID-19 ([facility]) Positive A COVID-19 Clin Com See Note Influenza Type A (PCR) Influenza Type B (PCR) RSV RNA Qual (PCR) SARS-CoV-2 RNA (RT-PCR) Airway Mallampati Class: I TM Dist: >3cm Neck ROM: Full Loose/Missing/Broken Teeth: No (patient denies any loose or broken teeth) Heart: S1S2 Lungs: CTA left, absent on right - right chest tube in place Assessment and Plan Assessment Anesthesia Assessment: Anesthesia Plan Discussed and Chart Reviewed Final Anesthetic Review Family History of Problems with Anesthesia: No History of Problems with Anesthesia: No NPO: Yes ASA Class: II Final Preanesthetic Review: No Changes in Pt Med Stat, Meds/Allgs Chart Reviewed, Consent Obtained/Reviewed and Anes Risks/Benef Reviewed Patient Risk: Intermediate Procedure Risk: Intermediate Anesthetic Plan Anesthetic Plan: GA and Agree w/ Assess. and Plan Disposition: Standard PACU
--- NOTE | 2024-03-14 09:45 | W.PM.OPN ---
Operative Note Operative Note Date of Service: 03/14/24 Narrative: Preoperative diagnosis: [] Recurrent ipsilateral spontaneous right pneumothorax Postop diagnosis: [] The same Procedure [] bronchoscopy, right VATS blebectomy, parietal apical pleurectomy, chemical pleurodesis, intercostal nerve block Surgeon: [] [place] Cook: [] Thaddeus Type of Anesthesia: [] Double-lumen general Indication for surgery: [] Bronchoscopy was used to assist anesthesia and placement of double-lumen tube. Also no gross endoluminal pathology demonstrated. Intra operative findings demonstrated large bleb/bulla of right upper lobe. No other gross intra-thoracic pathology demonstrated. Findings: [] Patient brought to the operating room, placed on operative table supine position, after adequate level of double-lumen general anesthesia was induced, patient underwent bronchoscopy with findings noted above. Patient was then placed in left lateral decubitus position with the right chest was prepped draped in usual sterile fashion using anterior posterior 6th intercostal space ports in the anterior and posterior axillary line, and a 3rd port in the subscapular area, findings were as noted above. Pathological apical bleb was grasped using thororoscopic graspers and was sequentially amputated using Endoscopic MAXIMILIANO staplers. Specimen sent to pathology. Next parietal apical pleurectomy was performed creating a raw surface. Chest cavity is filled with saline and remaining lung re-expanded with suture line pneumstatic. Chest cavity was again irrigated and secured hemostasis. All ports removed. Through the anterior working port, 24 Lithuanian chest tube was directed toward the apex and secured to the skin using 0 silk suture. Port sites were closed using deep followed by dermal interrupted 2-0 and 3-0 Vicryl sutures respectively. Steri-Strips and sterile dressings were applied. Chemical pleurodesis using 500 mg doxycycline was performed through the chest tube. Chest tube was connected to Pleur-evac and lung re-expanded with no air leak appreciated. Intercostal nerve block using 0.5% Marcaine was done at all port sites. Sponge, needle, and instrument counts reported correct. Patient tolerated the procedure well and emerged from anesthesia stable condition. EBL minimal
[2024-03-14] MEDS: HYDROmorphone HCl 0.5 MG/0.5 ML SYRINGE IVPUSH (10:15)
[2024-03-14] MEDS: Morphine Sulfate 4 MG/ML CARTRIDGE IVPUSH ×3 (11:03→21:39)
--- NOTE | 2024-03-14 13:17 | HO.PM.IMPN ---
Subjective Subjective Date of Service: 03/14/24 Interval History: Seen and examined this morning Follow-up for pneumothorax Status post bronchoscopy, right VATS/blebectomy/partial apical pleurectomy/chemical pleurodesis seen after procedure, denies sob Review of Systems Review of Systems: Yes all other systems are reviewed and are negative Constitutional Constitutional: Denies chills and Denies fever(s) Cardiovascular Cardiovascular: Denies chest pain and Denies dyspnea Respiratory Respiratory: Denies dyspnea Physical Exam Vital Signs: Vital Signs: Last Vital Signs Temp 98.2 F 03/14/24 10:25 Pulse 72 03/14/24 10:25 Resp 16 03/14/24 10:25 BP 146/91 H 03/14/24 10:25 Pulse Ox 97 03/14/24 10:25 O2 Del Method Room Air 03/14/24 10:25 O2 Flow Rate 3 03/14/24 10:10 BMI result Body Mass Index 21.1 Const: General: cooperative, no acute distress, alert and awake Nutritional Appearance: thin Orientation/consciousness: patient oriented x3 Resp: Other: right chest tube Effort & Inspection: normal respiratory effort, able to speak in complete sentences, no respiratory distress and no use of accessory muscles Cardio: Rate: regular rate GI: Inspection: No distended Palpation (GI): Soft to palpation Neuro: General: patient oriented x3, No moves all extremities and No CN's II-XI intact bilaterally Extrem: General: Yes no pedal edema Objective Data Active Medications Acetaminophen (Acetaminophen 325 Mg Tablet) 650 mg PO 0000,0600,1200,1800 [facility] Last Admin: 03/14/24 06:00 Dose: Not Given Documented By: JENAE Non-Admin Reason: NPO Calcium Carbonate (Calcium Carbonate 750 Mg Tab.Chew) 750 mg PO Q4H PRN PRN Reason: Heartburn Diphenhydramine HCl (Diphenhydramine Hcl 25 Mg Capsule) 25 mg PO Q6H PRN PRN Reason: Itchiness Last Admin: 03/11/24 22:30 Dose: 25 mg Documented By: ERMELINDA Enoxaparin Sodium (Enoxaparin Sodium 40 Mg/0.4 Ml Syringe) 40 mg SUBCUT Q24H [facility] Last Admin: 03/13/24 17:53 Dose: 40 mg Documented By: TYESHA Haloperidol Lactate (Haloperidol Lactate 5 Mg/Ml Vial) 1 mg IVPUSH ONCE PRN PRN Reason: intractable nausea Stop: 03/14/24 14:59 Hydromorphone HCl (Hydromorphone Hcl 0.5 Mg/0.5 Ml Syringe) 0.5 mg IVPUSH Q5M PRN PRN Reason: Pain, Severe (Pain Scale 7-10) Stop: 03/14/24 14:59 Last Admin: 03/14/24 10:15 Dose: 0.5 mg Documented By: BC Hydromorphone HCl (Hydromorphone Hcl 0.5 Mg/0.5 Ml Syringe) 0.25 mg IVPUSH Q5M PRN PRN Reason: Pain, Moderate(Pain Scale 4-6) Stop: 03/14/24 15:00 Magnesium Hydroxide (Milk Of Magnesia 30 Ml Oral.Susp) 30 ml PO DAILY PRN PRN Reason: Constipation Melatonin (Melatonin 3 Mg Tablet) 6 mg PO BEDTIME PRN PRN Reason: Insomnia Morphine Sulfate (Morphine Sulfate 4 Mg/Ml Cartridge) 4 mg IVPUSH Q4H PRN; Protocol PRN Reason: Pain, Severe (Pain Scale 7-10) Last Admin: 03/14/24 11:03 Dose: 4 mg Documented By: SAMUEL Nicotine (Nicotine 14 Mg Patch.Td24) 14 mg TRANSDERMA DAILY [facility] Last Admin: 03/14/24 11:44 Dose: Not Given Documented By: SAMUEL Non-Admin Reason: Patient Refused Ondansetron HCl (Ondansetron Hcl 4 Mg/2 Ml Vial) 4 mg IVPUSH Q8H PRN PRN Reason: Nausea and Vomiting Sodium Chloride (0.9 % Sodium Chloride Flush 3 Ml Syringe) 3 ml IVFLUSH QSHIFT [facility] Last Admin: 03/14/24 11:44 Dose: Not Given Documented By: SAMUEL Non-Admin Reason: Off Unit: Surgery Labs 03/13/24 07:53 03/13/24 07:53 Assessment and Plan (1) Recurrent spontaneous pneumothorax: Status: Acute Plan This is a 33yo M with hx cocaine abuse presenting with acute dyspnea, found to have spontaneous PTX a second episode since 2020 recurrent spontaneous right PTX s/p right chest tube placement in ED Serial CXR, presently trace right apical PTX pain management, Incentive spectrometry s/p bronchoscopy, right VATS blebectomy, parietal apical pleurectomy, chemical pleurodesis, intercostal nerve block 03/14/24 Thoracic surgery following Sinus Bradycardia, asymptomatic--presently in 70S EKG showing sinus rhythm, no heart block continuous cardiac monitoring cocaine use disorder, reports no use in a week addiction med consult.. No signs of withdrawal Covid positive asymptomatic but repeat still positive covid isolation Nicotine dependence, 1/2 PPD, NRT Full Code DVT Prophylaxis: Pneumatic compression, Lovenox due to prolonged imobility need for inpt: PTX with chest tube management Quality Stroke Does the patient have a stroke diagnosis?: No VTE Prior VTE?: No VTE Risk Level:: Medical - moderate - high VTE Device Contraindication: N/A - Device Ordered VTE Drug Contraindication: Treatment Not Indicated
[2024-03-14] MEDS: Acetaminophen 325 MG TABLET 650 MG PO ×2 (13:46→17:30)
[2024-03-14] MEDS: LORazepam 0.5 MG TABLET PO (13:46)
[2024-03-14] MEDS: oxyCODONE HCl Immed Release 5 MG TABLET PO (13:46)
[2024-03-14] MEDS: 0.9 % Sodium Chloride Flush 3 ML SYRINGE IVFLUSH (15:57)
[2024-03-14] MEDS: Enoxaparin Sodium 40 MG/0.4 ML SYRINGE SUBCUT (17:29)
[2024-03-15] VITALS (7 sets, daily range): BP systolic 117–133; BP diastolic 68–79; PULSE 53–79; RESP 17–20; TEMP 36.1–36.4; O2SAT 96–100
[2024-03-15] MEDS: Acetaminophen 325 MG TABLET 650 MG PO ×4 (00:47→17:03)
[2024-03-15] MEDS: 0.9 % Sodium Chloride Flush 3 ML SYRINGE IVFLUSH ×3 (00:49→17:05)
[2024-03-15] MEDS: oxyCODONE HCl Immed Release 5 MG TABLET PO ×2 (03:09→09:00)
[2024-03-15] MEDS: Morphine Sulfate 4 MG/ML CARTRIDGE IVPUSH ×4 (06:31→21:03)
--- NOTE | 2024-03-15 06:43 | P.PNGS_ITS ---
Subjective Subjective Date of Service: 03/15/24 <[facility] Filed: 03/15/24 06:56> 03/15/24 <Louie Montes MD - Last Filed: 03/15/24 13:20> Interval history: Patient reports he is doing well. He says his pain has been somewhat managed but this morning he is quite uncomfortable. Currently receiving oxycodone 5mg PO, acetaminophen 650mg PO and morphine 4mg IV. No acute events overnight. Vitals have remained stable. Chest Xray taken this morning, pending results. Tolerating regular diet without difficulties. Urinating and passing gas, no BMs. Chest tube remains intact, no air leaks. About 20ml of drainage overnight. Current total is 370ml. <[facility] Filed: 03/15/24 06:56> Physical Exam 2 Vital Signs: Vital Signs: Last Vital Signs Temp 96.9 F 03/15/24 03:11 Pulse 54 03/15/24 03:11 Resp 20 03/15/24 03:11 BP 127/68 03/15/24 03:11 Pulse Ox 100 03/15/24 03:11 O2 Del Method Room Air 03/15/24 03:11 O2 Flow Rate 3 03/14/24 10:10 BMI result Body Mass Index 21.1 <[facility] Filed: 03/15/24 06:56> Const: General: cooperative and healthy appearing <[facility] Filed: 03/15/24 06:56> Orientation/consciousness: patient oriented x3 <[facility] Filed: 03/15/24 06:56> Chest: Chest palpation & inspection: normal inspection of the chest, normal palpation of entire chest wall, tenderness (appropriate tenderness around incision sites. Clean, dry and intact bandage) and other (Chest tube remains intact, serosanguinous drainage visualized) <[facility] Filed: 03/15/24 06:56> Resp: Effort & Inspection: normal respiratory effort and able to speak in complete sentences <[facility] Filed: 03/15/24 06:56> Auscultation: clear to auscultation bilaterally <[facility] Filed: 03/15/24 06:56> Cardio: Palpation: normal PMI <[facility] Filed: 03/15/24 06:56> Rate: regular rate <[facility] Filed: 03/15/24 06:56> Rhythm: regular rhythm <[facility] Filed: 03/15/24 06:56> Heart sounds: S1 normal heart sound present and S2 normal heart sound present <[facility] Filed: 03/15/24 06:56> GI: Inspection: Yes normal to inspection <[facility] Filed: 03/15/24 06:56> Palpation (GI): Soft to palpation <[facility] Filed: 03/15/24 06:56> Neuro: General: patient oriented x3 <[facility] Filed: 03/15/24 06:56> Objective Data Active Medications Acetaminophen (Acetaminophen 325 Mg Tablet) 650 mg PO 0000,0600,1200,1800 [facility] Last Admin: 03/15/24 06:31 Dose: 650 mg Documented By: SUSI Calcium Carbonate (Calcium Carbonate 750 Mg Tab.Chew) 750 mg PO Q4H PRN PRN Reason: Heartburn Diphenhydramine HCl (Diphenhydramine Hcl 25 Mg Capsule) 25 mg PO Q6H PRN PRN Reason: Itchiness Last Admin: 03/11/24 22:30 Dose: 25 mg Documented By: ERMELINDA Enoxaparin Sodium (Enoxaparin Sodium 40 Mg/0.4 Ml Syringe) 40 mg SUBCUT Q24H [facility] Last Admin: 03/14/24 17:29 Dose: 40 mg Documented By: SUSI Magnesium Hydroxide (Milk Of Magnesia 30 Ml Oral.Susp) 30 ml PO DAILY PRN PRN Reason: Constipation Melatonin (Melatonin 3 Mg Tablet) 6 mg PO BEDTIME PRN PRN Reason: Insomnia Morphine Sulfate (Morphine Sulfate 4 Mg/Ml Cartridge) 4 mg IVPUSH Q4H PRN; Protocol PRN Reason: moderate pain Last Admin: 03/15/24 06:31 Dose: 4 mg Documented By: SUSI Nicotine (Nicotine 14 Mg Patch.Td24) 14 mg TRANSDERMA DAILY [facility] Last Admin: 03/14/24 11:44 Dose: Not Given Documented By: SAMUEL Non-Admin Reason: Patient Refused Ondansetron HCl (Ondansetron Hcl 4 Mg/2 Ml Vial) 4 mg IVPUSH Q8H PRN PRN Reason: Nausea and Vomiting Oxycodone HCl (Oxycodone Hcl Immed Release 5 Mg Tablet) 5 mg PO Q6H PRN PRN Reason: Pain, Moderate(Pain Scale 4-6) Last Admin: 03/15/24 03:09 Dose: 5 mg Documented By: SUSI Sodium Chloride (0.9 % Sodium Chloride Flush 3 Ml Syringe) 3 ml IVFLUSH QSHIFT [facility] Last Admin: 03/15/24 00:49 Dose: 3 ml Documented By: SUSI <[facility] Last Filed: 03/15/24 06:56> Labs CBC & Chem 7: 03/15/24 06:05 03/15/24 06:05 <[facility] Last Filed: 03/15/24 06:56> Labs: Laboratory Results - last 24 hr 03/15/24 06:05 Hold Purple Top SEE NOTE <[facility] Filed: 03/15/24 06:56> Procedures Date of Service Date of Service: 03/15/24 <[facility] Last Filed: 03/15/24 06:56> 03/15/24 <Louie Montes MD - Last Filed: 03/15/24 13:20> Progress Note: A&P Assessment and plan (1) Postop check: Status: Acute <[facility] Filed: 03/15/24 06:56> Assessment and Plan: Patient is s/p thorascopic blebectomy due to a spontaneous pneumothorax. Patient is overall doing well. Chest tube remains intact without air leaks, about 20ml of drainage overnight. Continue current pain management Continue regular diet, icing of incision, and ambulation as tolerated Pending Chest Xray reading this morning -Tisha BOYD <[facility] Filed: 03/15/24 06:56> Patient is s/p thorascopic blebectomy due to a spontaneous pneumothorax. Patient is overall doing well. Chest tube remains intact without air leaks, about 20ml of drainage overnight. Continue current pain management Continue regular diet, icing of incision, and ambulation as tolerated Pending Chest Xray reading this morning -Tisha West PA-S Status post chest tube removal. Postprocedure x-ray pending. <Louie Montes MD - Last Filed: 03/15/24 13:20> Time Spent With Patient Time: Total time managing care of this patient today ____ minutes. <[facility] - Last Filed: 03/15/24 06:56> Quality Stroke Does the patient have a stroke diagnosis?: No <[facility] Last Filed: 03/15/24 06:56> VTE Prior VTE?: No <[facility] Filed: 03/15/24 06:56> VTE Risk Level:: Medical - moderate - high <[facility] Filed: 03/15/24 06:56> VTE Device Contraindication: N/A - Device Ordered <[facility] Filed: 03/15/24 06:56> VTE Drug Contraindication: Treatment Not Indicated <[facility] Filed: 03/15/24 06:56>
[2024-03-15 06:48] LABS: Anion Gap 13 (12-20); Blood Urea Nitrogen 10 mg/dL (9-16); Calcium 10.3 mg/dL (8.4-10.2); Carbon Dioxide 30 mmol/L (22-29); Chloride 101 mmol/L (96-108); Estimated Glomerular Filt Rate > 60; Glucose Random 102 mg/dL (60-115); Potassium 4.8 mmol/L (3.3-5.1); Sodium 139 mmol/L (135-145)
[2024-03-15 08:17] LABS: Hematocrit 40.5 % (42.0-52.0); Hemoglobin 14.2 g/dl (14.0-18.0); Mean Corpuscular HGB Conc 35.1 g/dl (31.0-36.0); Mean Corpuscular Hemoglobin 30.4 pg (27.0-33.0); Mean Corpuscular Volume 86.7 fL (80.0-98.0); Mean Platelet Volume 9.7 fL (9.4-12.4); Platelet Count 312 X10*3/uL (160-400); Red Blood Count 4.67 X10*6/uL (4.60-5.80); Red Cell Distribution Width 12.3 % (11.0-16.0)
--- NOTE | 2024-03-15 11:52 | HO.PM.IMPN ---
Subjective Subjective Date of Service: 03/15/24 Interval History: Seen and examined this morning Follow-up for right pneumothorax Postop day 1 status post VATS procedure Reporting right-sided pain, no sob Review of Systems Review of Systems: Yes all other systems are reviewed and are negative Constitutional Constitutional: Denies chills and Denies fever(s) Physical Exam Vital Signs: Vital Signs: Last Vital Signs Temp 97.5 F 03/15/24 07:54 Pulse 53 03/15/24 07:54 Resp 17 03/15/24 07:54 BP 133/78 03/15/24 07:54 Pulse Ox 98 03/15/24 08:59 O2 Del Method Room Air 03/15/24 08:59 O2 Flow Rate 3 03/14/24 10:10 BMI result Body Mass Index 21.1 Const: General: cooperative, no acute distress, alert and awake Nutritional Appearance: thin Orientation/consciousness: patient oriented x3 Chest: Other: Right chest tube in place, bandage clean/dry/intact. No subq emphysema Resp: Other: right chest tube Effort & Inspection: normal respiratory effort, able to speak in complete sentences, no respiratory distress and no use of accessory muscles Cardio: Rate: regular rate GI: Inspection: No distended Palpation (GI): Soft to palpation Neuro: General: patient oriented x3, No moves all extremities and No CN's II-XI intact bilaterally Extrem: General: Yes no pedal edema Objective Data Active Medications Acetaminophen (Acetaminophen 325 Mg Tablet) 650 mg PO 0000,0600,1200,1800 [facility] Last Admin: 03/15/24 06:31 Dose: 650 mg Documented By: SUSI Calcium Carbonate (Calcium Carbonate 750 Mg Tab.Chew) 750 mg PO Q4H PRN PRN Reason: Heartburn Diphenhydramine HCl (Diphenhydramine Hcl 25 Mg Capsule) 25 mg PO Q6H PRN PRN Reason: Itchiness Last Admin: 03/11/24 22:30 Dose: 25 mg Documented By: ERMELINDA Docusate Sodium (Docusate Sodium 100 Mg Capsule) 100 mg PO BEDTIME [facility] Enoxaparin Sodium (Enoxaparin Sodium 40 Mg/0.4 Ml Syringe) 40 mg SUBCUT Q24H [facility] Last Admin: 03/14/24 17:29 Dose: 40 mg Documented By: SUSI Magnesium Hydroxide (Milk Of Magnesia 30 Ml Oral.Susp) 30 ml PO DAILY PRN PRN Reason: Constipation Melatonin (Melatonin 3 Mg Tablet) 6 mg PO BEDTIME PRN PRN Reason: Insomnia Morphine Sulfate (Morphine Sulfate 4 Mg/Ml Cartridge) 4 mg IVPUSH Q3H PRN; Protocol PRN Reason: moderate pain Last Admin: 03/15/24 10:21 Dose: 4 mg Documented By: LYNDSEY Nicotine (Nicotine 14 Mg Patch.Td24) 14 mg TRANSDERMA DAILY [facility] Last Admin: 03/15/24 08:53 Dose: Not Given Documented By: LYNDSEY Non-Admin Reason: Patient Refused Ondansetron HCl (Ondansetron Hcl 4 Mg/2 Ml Vial) 4 mg IVPUSH Q8H PRN PRN Reason: Nausea and Vomiting Oxycodone HCl (Oxycodone Hcl Immed Release 5 Mg Tablet) 10 mg PO Q6H PRN PRN Reason: Pain, Moderate(Pain Scale 4-6) Polyethylene Glycol (Polyethylene Glycol 3350 17 Gm Powd.Pack) 17 gm PO DAILY PRN PRN Reason: Constipation Sodium Chloride (0.9 % Sodium Chloride Flush 3 Ml Syringe) 3 ml IVFLUSH QSHIFT [facility] Last Admin: 03/15/24 09:03 Dose: 3 ml Documented By: LYNDSEY Labs 03/15/24 06:05 03/15/24 06:05 Labs: Laboratory Results - last 24 hr 03/15/24 06:05 MCV 86.7 MCH 30.4 MCHC 35.1 RDW 12.3 Plt Count 312 MPV 9.7 Absolute Nucleated RBC 0.000 Nucleated RBC % (auto) 0.0 Hold Purple Top SEE NOTE Anion Gap 13 Estim Creat Clear Calc 103.0 Estimated GFR > 60 Random Glucose 102 Calcium 10.3 H Assessment and Plan (1) Recurrent spontaneous pneumothorax: Status: Acute Plan This is a 33yo M with hx cocaine abuse presenting with acute dyspnea, found to have spontaneous PTX a second episode since 2020 recurrent spontaneous right PTX s/p right chest tube placement in ED s/p bronchoscopy, right VATS blebectomy, parietal apical pleurectomy, chemical pleurodesis, intercostal nerve block 03/14/24 management per Thoracic surgery+ leukocytosis - reactive Not requiring supplemental oxygen Sinus Bradycardia, asymptomatic EKG showing sinus rhythm, no heart block continuous cardiac monitoring cocaine use disorder, reports no use in a week addiction med consult.. No signs of withdrawal Covid positive asymptomatic but repeat still positive covid isolation Nicotine dependence Smoking cessation advised NRT Full Code DVT Prophylaxis: Pneumatic compression, Lovenox due to prolonged immobility need for inpt: PTX with chest tube management Quality Stroke Does the patient have a stroke diagnosis?: No VTE Prior VTE?: No VTE Risk Level:: Medical - moderate - high VTE Device Contraindication: N/A - Device Ordered VTE Drug Contraindication: Treatment Not Indicated
[2024-03-15] MEDS: oxyCODONE HCl Immed Release 5 MG TABLET 10 MG PO (12:27)
--- NOTE | 2024-03-15 16:23 | MHC.CM.PN ---
EMR REVIEWED, PT W/RIGHT PNEUMOTHORAX S/P POD1 VATS PROCEDURE, NO PLAN FOR DC TODAY, CM WILL CONT TO FOLLOW DC NEEDS.
[2024-03-15] MEDS: Enoxaparin Sodium 40 MG/0.4 ML SYRINGE SUBCUT (17:04)
[2024-03-15] MEDS: Docusate Sodium 100 MG CAPSULE PO (20:59)
[2024-03-16] VITALS: BP 122/84; PULSE 67; RESP 20; TEMP 36.5; O2SAT 98
[2024-03-16] MEDS: Morphine Sulfate 4 MG/ML CARTRIDGE IVPUSH ×2 (01:04→04:30)
[2024-03-16] MEDS: 0.9 % Sodium Chloride Flush 3 ML SYRINGE IVFLUSH ×2 (01:05→07:47)
[2024-03-16] MEDS: Acetaminophen 325 MG TABLET 650 MG PO ×2 (01:10→06:31)
[2024-03-16 04:00] VITALS: BP 131/79; PULSE 75; RESP 18; TEMP 35.9; O2SAT 99
[2024-03-16] MEDS: oxyCODONE HCl Immed Release 5 MG TABLET 10 MG PO (07:47)
[2024-03-16 07:48] VITALS: BP 117/77; PULSE 67; RESP 17; TEMP 36.3; O2SAT 99
[2024-03-16 08:00] VITALS: O2SAT 99
--- NOTE | 2024-03-16 09:43 | P.DS_ITS ---
DS: Providers Provider Date of Service: 03/16/24 Date of admission: 03/09/24 22:03 Date of discharge: 03/16/24 Primary care physician: None Physician Consults: 03/09/24 22:03 Addiction Medicine Routine Consulting Provider: Addiction Covering Reason for consultation: cocaine use disorder Consult to Thoracic Surgery Routine Consulting Provider: Louie Montes Reason for consultation: pnemothorax Attending physician on discharge: Ste[facility] Discharging clinician: Jessica Polk DS: Diagnosis Discharge Diagnosis (1) Recurrent spontaneous pneumothorax: Status: Acute DS: Summary Hospital Course Hospital Course: From H&P on the day of admission Pt is a 33-year-old male with a PMH significant for?previous pneumothorax in 2020 and cocaine use disorder who presents to the ED with right-sided chest pain, SOB, and VILLELA since yesterday. Pt states symptoms began last night when he was smoking a cigarette and suddenly felt right-sided chest pain and difficulty breathing. Pain at that time was minor and patient went to sleep without thinking much about it. When he awoke this morning pain had significantly increased and he was also complaining of shortness of breath, dyspnea upon exertion, and dry cough. [place] like his throat was closing when he would breathe. Pain covers the entire side of his right chest, and was worse with breathing. Patient currently smokes half a pack of cigarettes daily, as well as marijuana. Also snorts cocaine but is trying to quit, last used 1 week ago. In the ED pt was bradycardic as low as 45 and tachypneic up to 22. Labs were significant for leukocytosis of 13.1 and testing positive for COVID. Stable H& H. No significant electrolyte abnormalities. Renal and hepatic function WNL. D-dimer negative. CXR showed large right pneumothorax with collapse of the right lung. EKG demonstrated normal sinus rhythm with nonspecific intraventricular conduction block, but without significant evidence of ST elevations or depressions. In the ED chest tube was inserted and repeat x-ray showed right lung was fully inflated with only a small residual apical pneumothorax and chest tube in place. Pt was treated with morphine. Pt will be admitted to the hospital for treatment and further observation spontaneous right-sided pneumothorax with chest tube in place. Hospital course by problem: recurrent spontaneous right pneumothorax s/p right chest tube placement in ED on day of admission s/p bronchoscopy, right VATS blebectomy, parietal apical pleurectomy, chemical pleurodesis, intercostal nerve block 03/14/24. Serial chest x-rays followed, Chest tube removed 03/16. Patient has remained on room air with no shortness of breath and has been ambulating independently. We will need outpatient follow-up with thoracic surgery in 1 week's time. Sinus Bradycardia, asymptomatic EKG showing sinus rhythm, no heart block cocaine use disorder, reports no use in a week. No signs of withdrawal. Recommend cessation. Covid positive Patient has remained asymptomatic. No hypoxia. Nicotine dependence Smoking cessation advised. Patient declined nicotine replacement there if. Time Attestation Discharge Coordination Time (in mins): 36 Quality: Safe Use of Opioids Does Pt have an Active Cancer Diagnosis on the Problem List?: No Quality: Stroke Does the patient have a stroke diagnosis?: No Physical Exam Vital Signs: Vital Signs: Last Vital Signs Temp 97.4 F 03/16/24 07:48 Pulse 67 03/16/24 07:48 Resp 17 03/16/24 07:48 BP 117/77 03/16/24 07:48 Pulse Ox 99 03/16/24 07:48 O2 Del Method Room Air 03/16/24 07:48 O2 Flow Rate 3 03/14/24 10:10 BMI result Body Mass Index 21.1 Const: General: cooperative, no acute distress, alert and awake Nutritional Appearance: thin Orientation/consciousness: patient oriented x3 Chest: Other: site of chest tube bandage clean/dry/intact. No subq emphysema. incisional tenderness Resp: Other: right chest tube Effort & Inspection: normal respiratory effort, able to speak in complete sentences, no respiratory distress and no use of accessory muscles Cardio: Rate: regular rate GI: Inspection: No distended Palpation (GI): Soft to palpation Neuro: General: patient oriented x3, No moves all extremities and No CN's II- XI intact bilaterally Extrem: General: Yes no pedal edema DS: Data Data Completed and Pending Completed studies during hospitalization [Text1]: Pending at discharge 03/14/24 09:51 Surgical [PTH] Routine Procedures Drainage of Right Pleural Cavity with Drainage Device, Percutaneous Approach (05/12/21) Discharge Plan Discharge Anticipated Discharge Date/Time: 03/16/24 10:05 Patient Disposition: Home, Self-Care Discharge Diagnosis: pneumothorax Referrals: Physician,None [Primary Care Provider] - 1 Week Louie Montes MD [Physician] - 1 Week Discharge Medications: New oxycodone 5 mg tablet 5 mg PO Q8H PRN (Reason: severe pain (scale score 7-10)) Qty: 20 0RF Rx Instructions: Partial Fill upon patient request. Discharge Orders: Discharge Order (Routine); Ordered 03/16/24 Ordered By: Jessica Polk Diet: Advance to usual diet Activity on Discharge: No heavy lifting Stand Alone Forms: Patient Portal Discharge page Print Language: Swedish Activity Restrictions/Additional Instructions: No strenuous activities. May shower starting tomorrow. Dry sterile dressing changes every other day. Care Plan Goals: see below Health Concerns: Recurrent spontaneous pneumothorax s/p bronchoscopy, right VATS blebectomy, parietal apical pleurectomy, pleurodesis Tobacco dependence Plan of Treatment: Smoking cessation advised Avoid cocaine use Call to schedule follow-up appointment with thoracic surgery, Dr. Montes in one week dressing changes as above can take tylenol and oxycodone for severe pain Assessment: see discharge summary
--- NOTE | 2024-03-16 10:42 | MHC.CM.PN ---
Second IMM 03/16/24, Pt. has been medically cleared for DC. He will go home via family transport. no services due to pt does not have a PCP. DCP: self care.
--- NOTE | 2024-03-16 15:10 | HO.POSTANES ---
Post Anesthesia Evaluation Post Anesthesia Evaluation Date of Service: 03/15/24 Vital Signs: Vital Signs Temp Pulse Resp BP Pulse Ox O2 Del Method 03/16/24 08:00 99 Room Air 03/16/24 07:48 97.4 F 67 17 117/77 99 Room Air 03/16/24 04:00 96.6 F L 75 18 131/79 99 Room Air Anesthesia: General Endotracheal-GETA Mental Status: Awake Pain Control: Satisfactory Nausea/Vomiting: None Hydration: Adequate Anesthesia-Related Issues: No Anes. Related Issues
== END 2024-03-16 11:30 | disposition home or self-care (01) | DRG 163 ==
LOC: HO.ED 18:08 → HO.EDOVER 22:10 → HO.IMC 03-10 07:50
PROVIDERS: Internal Medicine; Physician Assistant; Physician Assistant Medical; Surgery; Admitting Provider Student in an Organized Health Care Education/Training Program; Emergency Provider Emergency Medicine; Visit Provider Physician Assistant Medical
PROC: 0BBC4ZZ Excision of Right Upper Lung Lobe, Percutaneous Endoscopic Approach (ICD-10-PCS; principal; 2024-03-14 07:30)
DX: J93.11 Primary spontaneous pneumothorax (principal); U07.1 COVID-19; F17.210 Nicotine dependence, cigarettes, uncomplicated; Z71.6 Tobacco abuse counseling; F14.10 Cocaine abuse, uncomplicated; R00.1 Bradycardia, unspecified
CPT/HCPCS: 0241U; 36415; 71045; 80048; 80053; 83735; 84484; 85025; 85027; 85379; 85610; 87635; 88304; 88307; 93005; 99285; A7041; C9290; J0131; J0665; J0690; J1100; J1170; J1650; J2250; J2270; J2405; J2704; J2795; J3010

== ENCOUNTER → 2024-03-09 15:48 | Outpatient (BNV) | payer MEDICARE, MEDICAID, SELFPAY | PROVIDERS: Admitting Provider Student in an Organized Health Care Education/Training Program; Emergency Provider Emergency Medicine; Visit Provider Internal Medicine Cardiovascular Disease | DX: R07.9 Chest pain, unspecified (principal); R94.31 Abnormal electrocardiogram [ECG] [EKG] | CPT/HCPCS: 93010 ==

== ENCOUNTER → 2024-03-09 22:03 | Outpatient (BNV) | payer MEDICARE, MEDICAID, SELFPAY | PROVIDERS: Admitting Provider Student in an Organized Health Care Education/Training Program; Emergency Provider Emergency Medicine; Visit Provider Nurse Practitioner Psychiatric/Mental Health | DX: F12.90 Cannabis use, unspecified, uncomplicated (principal) | CPT/HCPCS: 99221 ==

== ENCOUNTER → 2024-03-09 22:03 | Outpatient (BNV) | payer MEDICARE, MEDICAID, SELFPAY | PROVIDERS: Admitting Provider Student in an Organized Health Care Education/Training Program; Emergency Provider Emergency Medicine; Visit Provider Surgery | DX: J93.83 Other pneumothorax (principal) | CPT/HCPCS: 32656; 99024; 99223; 99233 ==

== ENCOUNTER → 2024-03-09 22:03 | Outpatient (BNV) | payer MEDICARE, MEDICAID, SELFPAY | PROVIDERS: Admitting Provider Student in an Organized Health Care Education/Training Program; Emergency Provider Emergency Medicine; Visit Provider Student in an Organized Health Care Education/Training Program | DX: J93.83 Other pneumothorax (principal) | CPT/HCPCS: 99223; 99232; 99239; 99499 ==

== ENCOUNTER 2024-03-20 10:18 | Outpatient (AMB) | payer MEDICARE, MEDICAID, SELFPAY ==
--- NOTE | 2024-03-20 10:20 | MHC.OFFVIS ---
Vital Signs 03/20/24 10:27 Weight 152 lb BP 130/91 H Blood Pressure Location Rt brachial Position Sitting Pulse 81 Pulse Oximetry (%) 96 Oxygen Delivery Method Room Air Intake Visit Reasons: chest pain,sob Intake Note: Patient here to f/u from ER visit on 03-09-2024. Rt pneumothorax on 03-14-24. Patient was also diagnosed w/Covid 19. Patient c/o: pain on rt flank from tube placement. SOB when walking from car to office this morning. Scaler Required: No Accompanied by: Self / Same As Patient Allergies No Known Allergies Allergy (Verified 03/20/24 10:27) HPI Comments Details: Patient presents for follow-up status post right blebectomy. Aside from incisional discomfort he is doing well. He is increasing his activity level. Tolerating his diet. He has no acute respiratory issues or complaints. FORMERLY [facility], [facility] Medical History (Updated 03/13/24 @ 17:38 by Louie Montes MD) Cocaine abuse Pneumothorax Surgical History (Updated 03/20/24 @ 10:52 by Louie Montes MD) H/O knee surgery Social History Household Members: Family Household Members Other:: Father Housing: House Do you presently have visiting nurse or other home services: No Alcohol intake: current Alcohol intake frequency: holidays/special occasions only Comment: COUNTS CORRECT Patient Tobacco Use Status: Current everyday Tobacco user Tobacco use type: Cigarette Cigarette Packs Per Day: 1 Substance Use Type: Crack/Cocaine and Marijuana service: No Current occupational status: disabled Current occupation: rt handed Physical Exam Vital Signs: Last Vital Signs Pulse 81 03/20/24 10:27 BP 130/91 H 03/20/24 10:27 Pulse Ox 96 03/20/24 10:27 Oxygen Delivery Method Room Air 03/20/24 10:27 Chest Other: Chest breath sounds bilaterally. All wounds clean dry and intact healing very well Assessment & Plan Assessment & Plan (1) Postop check: Code(s): Z09 - Encounter for follow-up examination after completed treatment for conditions other than malignant neoplasm Category: Surgical Plan Patient was given local wound instructions, continue to avoid smoking, and we will otherwise follow-up p.r.n.. All questions answered. Coding Level of Care Code Global (89918) Diagnoses Postop check Z09
[2024-03-20 10:27] VITALS: BP 130/91; PULSE 81; O2SAT 96
== END 2024-03-20 10:34 | disposition home or self-care (01) ==
PROVIDERS: Visit Provider Surgery
DX: Z09 Encounter for follow-up examination after completed treatment for conditions other than malignant neoplasm (principal)
CPT/HCPCS: 99024

== ENCOUNTER → 2024-03-20 10:18 | Outpatient (BNVA) | payer MEDICARE, MEDICAID, SELFPAY | PROVIDERS: Visit Provider Surgery | DX: Z09 Encounter for follow-up examination after completed treatment for conditions other than malignant neoplasm (principal) | CPT/HCPCS: 99212 ==

== ENCOUNTER 2024-04-04 12:32 | Emergency (ER) | payer MEDICARE, MEDICAID, SELFPAY ==
--- NOTE | ~2024-04-04 | XR_ITS ---
EXAMINATION: XR CHEST CLINICAL INFORMATION: Purulent discharge from right anterolateral chest COMPARISON: 03/15/2024 TECHNIQUE: 2 views of the chest were obtained. FINDINGS: No significant abnormality is noted involving the heart, lungs, mediastinum, bony thorax or soft tissues. Previously seen small right apical pneumothorax has resolved. XR/XR chest 2V IMPRESSION: Unremarkable examination. Electronically signed by: Tee King MD 04/04/2024 02:48 PM EDT
--- NOTE | 2024-04-04 13:13 | ED_ITS ---
HPI - General Adult General Chief complaint: Wound/Laceration Stated complaint: Post-op issues Time Seen by Provider: 04/04/24 15:22 Source: patient Mode of arrival: ambulatory Limitations: no limitations History of Present Illness ED Provider: ANGELINE CALDERON PA-C HPI narrative: 34 year old male with pmhx significant for recurrent spontaneous pneumothorax presents to the ED today for evaluation of suspected infection of surgical site. Patient is s/p thoroscopic blebectomy on right side (03/20/24) performed at [facility] [place] by Dr. Montes. Reports no complications up until 3 days ago when he noticed some wet drainage from one of these incision site on his right chest. Admits the area is itchy and he has been scratching it. Denies any other concerns. He has not discussed current symptoms with his surgeon. Denies fever, chills, chest pain, SOB, dyspnea, cough, hemoptysis. Related Data Previous Rx's ?Medication ?Instructions ?Recorded doxycycline hyclate 100 mg capsule 100 mg PO BID 5 days #10 caps 04/04/24 Allergies Allergy/AdvReac Type Severity Reaction Status Date / Time No Known Allergies Allergy Verified 04/04/24 13:18 Review of Systems 2 Review of Systems: Constitutional: No fever, chills, fatigue, night sweats, weight changes ENT/Mouth: No ear pain, hearing loss, nasal congestion, sinus pain, rhinorrhea, sore throat Eyes: No eye pain, swelling, redness, vision changes, discharge Cardio: No chest pain, palpitations, VILLELA, orthopnea, peripheral edema Pulm: No SOB, cough, sputum, wheezing, dyspnea, hemoptysis GI: No nausea, vomiting, hematemesis, abdominal pain, diarrhea, constipation, hematochezia, melena : No irregular bleeding, dysuria, frequency, urgency, hesitancy, hematuria, flank pain, urinary flow changes, urinary incontinence or retention MSK: No back pain, neck pain, joint pain, myalgias Skin: No lesions, rashes, +incision site irritation Neuro: No weakness, numbness, paresthesias, LOC, dizziness, headache Psych: No anxiety/panic, depression, SI/HI, AH/VH All other systems reviewed and are negative. [facility] Past Medical History Attestation statement: The following information was validated with the patient. Source: old records reviewed and nursing notes reviewed Medical History Cocaine abuse Surgical History Postop check H/O knee surgery Social History Social History Household Members: Family Household Members Other:: Father Housing: House Do you presently have visiting nurse or other home services: No Alcohol intake: current Alcohol intake frequency: holidays/special occasions only Comment: COUNTS CORRECT Patient Tobacco Use Status: Current everyday Tobacco user Tobacco use type: Cigarette Cigarette Packs Per Day: 1 Substance Use Type: Crack/Cocaine and Marijuana Advance Directives: No Advance Directives Information Provided: No service: No Current occupational status: disabled Current occupation: rt handed Physical Exam ED Vital Signs: Vital Signs - 24 hr 04/04/24 13:14 04/04/24 15:27 Temperature 98.0 F 98.4 F Pulse Rate 82 79 Respiratory Rate 18 16 Blood Pressure 115/84 150/99 H Pulse Oximetry 99 Oxygen Delivery Method Room Air Room Air BMI result Body Mass Index 21.7 Vital signs stable, afebrile. Const General: cooperative, healthy appearing, comfortable and no acute distress Orientation/consciousness: patient oriented x3 Limitations: no limitations Chest Chest/axillae images: 2 1. 2 well-healing surgical scars measuring approximately 2 cm noted to right anterior chest wall. There is minimal erythema surrounding the most lateral incision site. No pointing. No noted drainage. No palpable fluctuance. Slightly tender to palpation. No noted warmth. Resp Effort & Inspection: normal respiratory effort and able to speak in complete sentences Auscultation: clear to auscultation bilaterally Cardio Rate: regular rate Rhythm: regular rhythm Neuro General: patient oriented x3 Course Course Course Narrative: This is a Rapid Medical Examination (RME) performed by Nicholas Calderon PA-C in triage. Full HPI, ROS, assessment and treatment plan per primary provider in the Main ED. 34 yo male hx of recurrent pneumothorax s/p blebectomy by Dr. Montes (03/20/24) here for possible incision infection. reports wetness and purulent discharge from the incision site on his right anterolateral chest x days. reports concern for infection. no fever, chills. admits to nausea. denies chest pain, sob. otherwise feels well. Plan: cxr, labs Reevaluation(s) Reevaluation #1: 1529 -- CBC without leukocytosis or left shift. No anemia. H&H stable. Chemistry without acute electrolyte abnormality requiring intervention. No MARKY. Chest x-ray WNL. > I discussed all workup results with patient. The scar appears to be healing well however due to minimal surrounding erythema, will treat for early cellulitis. Doxy sent to pharmacy for treatment. I do not suspect acute abscess at this time as there is no drainage expressible on my examination. Patient has remained stable throughout ED visit today. Discussed worrisome signs and symptoms and when to return to the ED. All questions answered at this time. Patient is agreeable with disposition and stable for discharge. Medical Decision Making Medical Decision Making [facility] Narrative: 34 year old male with pmhx significant for recurrent spontaneous pneumothorax presents to the ED today for evaluation of suspected infection of surgical site. Vital signs stable. He is nontoxic appearing in no acute distress. On exam there are 2 well-healing surgical scars measuring approximately 2 cm noted to right anterior chest wall. There is minimal erythema surrounding the most lateral incision site. No noted drainage. No palpable fluctuance. Slightly tender to palpation. No noted warmth. Lungs are CTA bilaterally. Patient is overall well-appearing. Differential diagnosis includes normal scar healing vs early cellulitis. unlikley abscess, seroma. Plan for basic labs, CXR, re-evaluation. Differential Diagnosis Differential Diagnoses: The differential diagnosis associated with the presentation includes as above. Admission/Observation Not indicated. Lab Data [facility] Lab Attestation statement: I reviewed the patient's lab results. as above. 04/04/24 13:29 04/04/24 13:29 Labs: Lab Results 04/04/24 Range/Units 13:29 WBC 9.4 (4.8-10.8) X10*3/uL RBC 5.08 (4.60-5.80) X10*6/uL Hgb 15.2 (14.0-18.0) g/dl Hct 45.2 (42.0-52.0) % MCV 89.0 (80.0-98.0) fL MCH 29.9 (27.0-33.0) pg MCHC 33.6 (31.0-36.0) g/dl RDW 12.7 (11.0-16.0) % Plt Count 392 D (160-400) X10*3/uL MPV 9.2 L (9.4-12.4) fL Immature Gran % (Auto) 0.4 (0.0-0.4) % Neut % (Auto) 53.1 (45-73) % Lymph % (Auto) 37.8 (20-40) % [place] % (Auto) 6.5 (2-11) % Eos % (Auto) 1.6 (0-4) % Baso % (Auto) 0.6 (0-2) % Lymph # (Auto) 3.6 (1.2-4.9) X10*3/uL [place] # (Auto) 0.6 (0.1-1.2) X10*3/uL Eos # (Auto) 0.2 (0.0-0.4) X10*3/uL Baso # (Auto) 0.1 (0.0-0.2) X10*3/uL Abs Immat Gran (auto) 0.04 H (0.00-0.03) X10*3/uL Absolute Neuts (auto) 5.0 (2.0-8.3) x10*3/uL Absolute Nucleated RBC 0.000 (0.0-0.012) X10*3/uL Nucleated RBC % (auto) 0.0 (0.0-0.2) /100WBC Sodium 140 (135-145) mmol/L Potassium 4.7 (3.3-5.1) mmol/L Chloride 104 (96-108) mmol/L Carbon Dioxide 29 (22-29) mmol/L Anion Gap 12 (12-20) BUN 15 (9-16) mg/dL Creatinine 1.22 (0.5-1.4) mg/dL Estim Creat Clear Calc 86.9 Estimated GFR > 60 Random Glucose 80 (60-115) mg/dL Calcium 10.2 (8.4-10.2) mg/dL Total Bilirubin 0.4 (0.0-1.0) mg/dL AST 24 (5-37) U/L ALT 41 H (0-40) U/L Alkaline Phosphatase 80 (39-117) U/L Total Protein 8.5 H (6.5-8.0) g/dL Albumin 4.4 (3.5-5.0) g/dL Independent Interpretation I performed an independent interpretation of an: Plain X-Ray Interpretation: CXR without effusion or noted chest wall abscess, agree with radiologist's interpretation. Radiology Impression Discussion of test interpretation with radiology: I have reviewed the radiologist's reading. Radiologist Impression: EXAMINATION: XR CHEST CLINICAL INFORMATION: Purulent discharge from right anterolateral chest COMPARISON: 03/15/2024 TECHNIQUE: 2 views of the chest were obtained. FINDINGS: No significant abnormality is noted involving the heart, lungs, mediastinum, bony thorax or soft tissues. Previously seen small right apical pneumothorax has resolved. XR/XR chest 2V IMPRESSION: Unremarkable examination. Electronically signed by: Tee King MD 04/04/2024 02:48 PM EDT RP External Record Review External record reviewed: Inpatient record, Office record, Outpatient record, Prior outpatient labs, Prior outpatient radiology, Primary care record and Outside ED record Prescription Management I considered prescription management with: Antibiotic (Doxycycline) Chronic Conditions Patient?s care impacted by: Other (Recurrent pneumothorax) Social Determinants Patient?s care significantly limited by Social Determinants of Health including: Other Social Determinant of Health Critical Care Time Critical Care Time Critical Care Time: No Discharge Plan Discharge Clinical Impression: Cellulitis Patient Disposition: Home, Self-Care Instructions: Cellulitis (ED), Warm Compress or Soak (ED) Additional Instructions: Your blood work today is reassuring. Your chest xray is normal. You have a superficial skin infection. Doxycycline is an antibiotic that has been sent to your pharmacy. Take this as prescribed over the next 5 days. Do not skip any doses. Take this to completion. You may also apply warm compresses to the area. Follow up with your PCP as needed. Return with new or worsening symptoms. In the case of an emergency call 911. Prescriptions: New doxycycline hyclate 100 mg capsule 100 mg PO BID 5 Days Qty: 10 0RF Referrals: [facility] [place] [facility]] [facility] [place] [facility] [Provider Group] Louie Montes MD [Physician] - Interventions: ED Discharge Assessment Last Done: 04/04/24 15:27 Discharge Date/Time: 04/04/24 15:32 Print Language: Swedish
[2024-04-04 13:14] VITALS: BP 115/84; PULSE 82; RESP 18; TEMP 36.7; O2SAT 99; BMI 21.7
[2024-04-04 13:52] LABS: MANUAL DIFF FLAG NO
[2024-04-04 13:54] LABS: Basophils Absolute Auto 0.1 X10*3/uL (0.0-0.2); Basophils Percent Auto 0.6 % (0-2); Eosinophils Absolute Auto 0.2 X10*3/uL (0.0-0.4); Eosinophils Percent Auto 1.6 % (0-4); Hematocrit 45.2 % (42.0-52.0); Hemoglobin 15.2 g/dl (14.0-18.0); Imm Gran Abs Auto 0.04 X10*3/uL (0.00-0.03); Imm Gran Pct Auto 0.4 % (0.0-0.4); Lymphocytes Absolute Auto 3.6 X10*3/uL (1.2-4.9); Lymphocytes Percent Auto 37.8 % (20-40); Mean Corpuscular HGB Conc 33.6 g/dl (31.0-36.0); Mean Corpuscular Hemoglobin 29.9 pg (27.0-33.0); Mean Platelet Volume 9.2 fL (9.4-12.4); Monocytes Absolute Auto 0.6 X10*3/uL (0.1-1.2); Monocytes Percent Auto 6.5 % (2-11); Neutrophils Percent Auto 53.1 % (45-73); Platelet Count 392 X10*3/uL (160-400); Red Blood Count 5.08 X10*6/uL (4.60-5.80); Red Cell Distribution Width 12.7 % (11.0-16.0); White Blood Count 9.4 X10*3/uL (4.8-10.8)
[2024-04-04 14:09] LABS: Alanine Aminotransferase 41 U/L (0-40); Albumin Level 4.4 g/dL (3.5-5.0); Alkaline Phosphatase 80 U/L (39-117); Anion Gap 12 (12-20); Aspartate Amino Transferase 24 U/L (5-37); Bilirubin Total 0.4 mg/dL (0.0-1.0); Blood Urea Nitrogen 15 mg/dL (9-16); Calcium 10.2 mg/dL (8.4-10.2); Carbon Dioxide 29 mmol/L (22-29); Chloride 104 mmol/L (96-108); Creatinine Clr Calc Pharmacy 86.9; Estimated Glomerular Filt Rate > 60; Glucose Random 80 mg/dL (60-115); Potassium 4.7 mmol/L (3.3-5.1); Sodium 140 mmol/L (135-145); Total Protein 8.5 g/dL (6.5-8.0)
[2024-04-04 15:27] VITALS: BP 150/99; PULSE 79; RESP 16; TEMP 36.9
== END 2024-04-04 15:32 | disposition home or self-care (01) ==
LOC: HO.ED 15:28
PROVIDERS: Physician Assistant Medical; Emergency Provider Emergency Medicine
DX: L03.313 Cellulitis of chest wall (principal); Z79.899 Other long term (current) drug therapy
CPT/HCPCS: 36415; 71046; 80053; 85025; 99282; 99283

== ENCOUNTER 2024-04-09 14:52 | Outpatient (AMB) | payer MEDICARE, MEDICAID, SELFPAY ==
[2024-04-09 14:56] VITALS: BP 119/79; PULSE 74; BMI 22.1
--- NOTE | 2024-04-09 14:56 | A.OFFVIS_ITS ---
Vital Signs 04/09/24 14:56 Height 6 ft Weight 163 lb BMI 22.1 BP 119/79 Blood Pressure Location Rt brachial Position Sitting Pulse 74 Intake Visit Reasons: ER Cellulitis Intake Note: Patient referred after ER visit on 04-04-24 for cellulitis. Taking Doxycycline. Patient c/o: reports tube site on Rt flank healing well. Professor Of Theatre Required: No Accompanied by: Self / Same As Patient Allergies No Known Allergies Allergy (Verified 04/09/24 14:58) HPI Comments Details: Patient presents for evaluation of 1 of his incision sites. He was extruding a suture and developed a stitch abscess. He was seen in the ER presents here for follow-up. Patient has no other respiratory issues or complaints [facility] Medical History Cocaine abuse Surgical History Postop check H/O knee surgery Social History Household Members: Family Household Members Other:: Father Housing: House Do you presently have visiting nurse or other home services: No Alcohol intake: current Alcohol intake frequency: holidays/special occasions only Comment: COUNTS CORRECT Patient Tobacco Use Status: Current everyday Tobacco user Tobacco use type: Cigarette Cigarette Packs Per Day: 1 Substance Use Type: Crack/Cocaine and Marijuana service: No Current occupational status: disabled Current occupation: rt handed Physical Exam Vital Signs: Last Vital Signs Pulse 74 04/09/24 14:56 BP 119/79 04/09/24 14:56 BMI result Body Mass Index 22.1 Chest Other: Chest breath sounds bilaterally. Posterior port site has a stitch abscess. Stitch was uneventfully removed. Bacitracin and sterile dressing were applied. Assessment & Plan Assessment & Plan (1) Postoperative stitch abscess: Code(s): T81.41XA - Infection following a procedure, superficial incisional surgical site, initial encounter Category: Surgical Plan Patient has been given local instructions, and will follow-up p.r.n.. All questions answered Coding Level of Care Code Global (73835) Diagnoses Postoperative stitch abscess T81.41XA
== END 2024-04-09 14:59 | disposition home or self-care (01) ==
PROVIDERS: Visit Provider Surgery
DX: T81.41XA Infection following a procedure, superficial incisional surgical site, initial encounter (principal)
CPT/HCPCS: 99024

== ENCOUNTER → 2024-04-09 14:52 | Outpatient (BNVA) | payer MEDICARE, MEDICAID, SELFPAY | PROVIDERS: Visit Provider Surgery | DX: Z09 Encounter for follow-up examination after completed treatment for conditions other than malignant neoplasm (principal); T81.41XD Infection following a procedure, superficial incisional surgical site, subsequent encounter | CPT/HCPCS: 99212 ==

== ENCOUNTER 2025-04-18 12:57 | Outpatient (AMB) | payer MEDICARE, MEDICAID, SELFPAY ==
--- NOTE | 2025-04-18 13:05 | A.OFFPC_ITS ---
Vital Signs 04/18/25 13:08 Height 6 ft Weight 81.647 kg BMI 24.4 BP 108/90 H Respiration 14 Pulse 64 Pulse Source Pulse Oximeter Temp 97.3 F Temp Source Temporal Artery Scan Pulse Oximetry (%) 99 Oxygen Delivery Method Room Air Intake Visit Reasons: Physical-Croke Educational Sign Language Interpreter Required: No Accompanied by: Self / Same As Patient Allergies No Known Allergies Allergy (Verified 04/18/25 13:05) Tobacco use date assessed: 04/18/25 Dental Screening Dental Screen Date: 04/18/25 Did you have a dental visit in the last 12 months?: Yes Did you have a dental problem in the last 6 months where you did not have access to dental care?: No Was dental information given to patient?: No HPI HPI Comments History of Present Illness Details 35-year-old male with history of develop ment delay, dyslexia, stutter her presents to the office today to establish care and for annual physical exam. He is currently living with his brother along with his brother's and sons. He does have a son himself who lives with the mother but does see them. He is not currently working, he has been on disability since childhood due to developmental delay/dyslexia/stutter.. He reports only occasional alcohol use. History of cigarette smoking but quit last year (20 pack-year history). History of cocaine use but no use in recent years. Inhaled only. History of pnuemothorax R- r/t cigarettes smoking. Admitted with chest tube placement. He did undergo bronchoscopy with right VATS blebectomy, parietal apical pleurectomy, chemical pleurodesis with intercostal nerve block on 03/14/2024. He did quit smoking and there has been no recurrence of pneumothorax since. q Concerns: Depression/dbhidns-STE-8 score 12, caroline 7 score 17. Dad last year while he was in the hospital last year. Family helps. Denies any SI/HI. He is not interested in therapy. Pain of the right knee-s/p ACL repair 01/24/2019. Has not been seen since 2020 by Orthopedic surgery. He reports that he is having worsening pain in the right knee with popping of the joint. Denies instability Health Maintenance: Colonoscopy age 44 Bi annually eye exam. Wears corrective lenses Dentist twice yearly Reviewed past medical, surgical, social, family history. ROS: General: No fevers, malaise, unintentional weight loss HEENT: No blurred vision, diplopia. No sore throat, nasal congestion, rhinorrhea, sinus pain, ear pain. No hearing loss Neck - no adenopathy Cardiovascular: No chest pain, palpitations, or leg edema Respiratory: No shortness of breath, wheezing, cough GI: No dysphagia, odynophagia, globus sensation. No abdominal pain, nausea, vomiting, diarrhea, constipation, melena, hematochezia : No dysuria, hematuria, increased urinary frequency, decreased urinary output. No testicular swelling or pain. No penile discharge MSK: No myalgia, back pain. See HPI Neuro: No headaches, weakness, paresthesias. Psych: See HPI. No AH/VH. No SI/HI Skin: No rashes or lesions EXAM: Constitutional - Awake and Alert, No apparent distress Eyes - PERRLA, EOMI. Anicteric Ears - external ears normal, canals clear, TMs intact and pearly rodríguez with good cone of light Nose- septum midline, nares clear, no sinus tenderness Mouth/throat- mucosa moist, tongue and uvula midline, no erythema/edema or tonsillar adenopathy. Neck-trachea midline, thyroid symmetric without palpable nodules, no adenopathy Cardiovascular - S1S2, RRR, No edema Respiratory - Normal lung expansion, Normal respiratory effort, No respiratory distress, CTA bilaterally Gastrointestinal - NT / ND; +BS; No rebound or guarding - No CVA tenderness Extremities - no calf tenderness bilaterally, no swelling Musculoskeletal - Normal inspection, normal ROM. No bony abnormality, warmth, erythema, effusion, swelling noted. Full extension and flexion Skin - Warm/Dry, no concerning lesions Neurological - Alert & oriented x3, CN II-XII in tact, 5/5 strength BUE and BLE, 2+ patellar reflexes, sensation intact Psychological - Appropriate affect, tearful [facility] Medical History (Updated 04/18/25 @ 13:42 by ARTHUR Her) Recurrent moderate major depressive disorder with anxiety Cocaine abuse Surgical History Postop check H/O knee surgery Family History Mother Diabetes Social History Household Members: Family Household Members Other:: Father Housing: House Do you presently have visiting nurse or other home services: No Alcohol intake: current Alcohol intake frequency: holidays/special occasions only Comment: COUNTS CORRECT Patient Tobacco Use Status: Former Tobacco user (Quite 03/08/2024) Tobacco use type: Cigarette Cigarette Packs Per Day: 1 e-Cigarette/Vaping Use: Never Used Substance Use Type: Crack/Cocaine and Marijuana service: No Current occupational status: disabled Current occupation: rt handed Cognitive needs: No Hearing needs: No Vision needs: Yes (Rx glasses) Questionnaire PHQ-9 Over the last 2 weeks, how often have you been bothered by any of the following problems? 1. Little interest or pleasure in doing things: several days 2. Feeling down, depressed, or hopeless: several days 3. Trouble falling or staying asleep, or sleeping too much: nearly every day 4. Feeling tired or having little energy: nearly every day 5. Poor appetite or overeating: not at all 6. Feeling bad about yourself - or that you are a failure or have let yourself or your family down: several days 7. Trouble concentrating on things, such as reading the newspaper or watching television: nearly every day 8. Moving or speaking so slowly that other people could have noticed. Or the opposite - being so fidgety or restless that you have been moving around a lot more than usual: not at all 9. Thoughts that you would be better off or of hurting yourself in some way: not at all Total score: 12 Depression Screening Interpretation: Positive Depression Screening Done: Yes 53576 - PHQ-9 Billing: Yes Source: Developed by Drs. Rosales Ralph, Opal Barragan, Luke Parsons and colleagues, with an educational michel from [employer]. Thrive Questionnaire Date Thrive assessed: 03/11/24 CAROLINE-7 AMB Questionnaire CAROLINE-7 Feeling nervous, anxious, or on edge: 3 = Nearly every day Not being able to stop or control worryin = Nearly every day Worrying too much about different things: 3 = Nearly every day Trouble relaxin = Nearly every day Being so restless that it is hard to sit still: 2 = More than half the days Becoming easily annoyed or irritable: 3 = Nearly every day Feeling afraid as if something awful might happen: 0 = Not at all Total CAROLINE-7 score (0-4 normal; 5-9 mild; 10-14 moderate; 15-21 severe): 17 Source: Developed by Drs. Rosales Ralph, Opal Barragan, Luke Parsons and colleagues, with an educational michel from [employer]. CAROLINE-7 Assessment Billing CAROLINE-7 Assessment Tool: CAROLINE-7 Assessment 18312 Physical exam (Primary Care) Vital Signs: Last Vital Signs Temp 97.3 F 04/18/25 13:08 Pulse 64 04/18/25 13:08 Resp 14 04/18/25 13:08 BP 108/90 H 04/18/25 13:08 Pulse Ox 99 04/18/25 13:08 Oxygen Delivery Method Room Air 04/18/25 13:08 BMI result Body Mass Index 24.4 Tobacco/Smoking Status: Tobacco use Status Tobacco use date assessed 04/18/25 04/18/25 13:10 Patient Tobacco Use Status Former Tobacco user (Quite 8 04/18/25 13:10 ) Tobacco use type Cigarette 04/18/25 13:10 e-Cigarette/Vaping Use Never Used 04/18/25 13:10 PHQ-9: PHQ-9 Score PHQ-9: Total score 12 04/18/25 13:16 Depression Screening Interpretation: Positive Thrive Assessment: Date of Thrive Assessment Date Thrive assessed 03/11/24 04/18/25 13:10 Coding Level of Care Code Est Pt Level 3 (66932) New Pt Prev Care 18-39yr(92247 Diagnoses Sprain of anterior cruciate ligament of right knee S83.511A Recurrent spontaneous pneumothorax J93.83 Routine medical exam Z00.00 Recurrent moderate major depressive disorder with anxiety F33.1; F41.9 Additional Codes CAROLINE-7 Assessment Billing - CAROLINE-7 Assessment Tool: CAROLINE-7 Assessment 22989 ([id number]) PHQ-9 - 14327 - PHQ-9 Billing: Yes ([id number]) Assessment & Plan Assessment & Plan (1) Sprain of anterior cruciate ligament of right knee: Code(s): S83.511A - Sprain of anterior cruciate ligament of right knee, initial encounter Category: Medical Plan: Referred to Orthopedic surgery for re-evaluation of sprain of ACL of the right knee now with worsening pain (2) Recurrent spontaneous pneumothorax: Code(s): J93.83 - Other pneumothorax Category: Medical Plan: No recurrence. Continue off of cigarettes. Counseled against smoking marijuana (3) Routine medical exam: Code(s): Z00.00 - Encounter for general adult medical examination without abnormal findings Plan: 35-year-old male presenting to [facility] and for annual physical exam. Plan as below (4) Recurrent moderate major depressive disorder with anxiety: Code(s): F33.1 - Major depressive disorder, recurrent, moderate; F41.9 - Anxiety disorder, unspecified Category: Medical Plan: Declines counseling. Initiated on sertraline 50 mg daily. Counseled on side effects and black box warning. He will follow up in the office in 1 month Plan Follow-up in the office in 1 month, labs to be completed following visit today Orders: Orders Basic Metabolic Panel Today Z00.00 - Encounter for general adult medical examination without abnormal findings Liver Panel Today Z00.00 - Encounter for general adult medical examination without abnormal findings Complete Blood Count Auto Diff Today Z00.00 - Encounter for general adult medical examination without abnormal findings Lipid Panel Today Z00.00 - Encounter for general adult medical examination without abnormal findings Referrals Orthopedics Referral M25.561 - Pain in right knee, Z87.828 - Personal history of other (healed) physical injury and trauma Medications: New sertraline take 1/2 tab daily x 1 week, then increase to 1 tab daily 50 mg PO DAILY 90 tabs 0RF
[2025-04-18 13:08] VITALS: BP 108/90; PULSE 64; RESP 14; TEMP 36.3; O2SAT 99; BMI 24.4
== END 2025-04-18 13:41 | disposition home or self-care (01) ==
LOC: HO.HMCHD 12:58
PROVIDERS: Visit Provider Physician Assistant
DX: Z00.00 Encounter for general adult medical examination without abnormal findings (principal); S83.511A Sprain of anterior cruciate ligament of right knee, initial encounter; F33.1 Major depressive disorder, recurrent, moderate; J93.83 Other pneumothorax; F41.9 Anxiety disorder, unspecified

== ENCOUNTER 2025-04-18 12:57 | Outpatient (REF) | payer MEDICARE, MEDICAID, SELFPAY ==
[2025-04-18 13:56] LABS: MANUAL DIFF FLAG NO
[2025-04-18 14:44] LABS: Hematocrit 43.0 % (42.0-52.0); Hemoglobin 14.6 g/dl (14.0-18.0); Imm Gran Abs Auto 0.03 X10*3/uL (0.00-0.03); Imm Gran Pct Auto 0.3 % (0.0-0.4); Lymphocytes Absolute Auto 4.0 X10*3/uL (1.2-4.9); Mean Corpuscular HGB Conc 34.0 g/dl (31.0-36.0); Mean Corpuscular Hemoglobin 30.0 pg (27.0-33.0); Mean Corpuscular Volume 88.5 fL (80.0-98.0); NRBC Abs Auto 0.000 X10*3/uL (0.0-0.012); NRBC Pct Auto 0.0 /100WBC (0.0-0.2); Platelet Count 295 X10*3/uL (160-400); Red Blood Count 4.86 X10*6/uL (4.60-5.80); White Blood Count 9.6 X10*3/uL (4.8-10.8)
[2025-04-18 15:32] LABS: Alanine Aminotransferase 55 U/L (0-40); Albumin Level 4.6 g/dL (3.5-5.0); Alkaline Phosphatase 74 U/L (39-117); Anion Gap 9 (12-20); Aspartate Amino Transferase 43 U/L (5-37); Blood Urea Nitrogen 9 mg/dL (9-16); Calcium 9.1 mg/dL (8.4-10.2); Carbon Dioxide 31 mmol/L (22-29); Chloride 106 mmol/L (96-108); Cholesterol 226 mg/dL (<200); Estimated Glomerular Filt Rate > 60; HDL Cholesterol 42 mg/dL (>40); Potassium 4.3 mmol/L (3.3-5.1); Sodium 142 mmol/L (135-145); Total Protein 8.2 g/dL (6.5-8.0); Triglycerides 176 mg/dL (<150)
== END 2025-04-18 12:58 | disposition home or self-care (01) ==
LOC: HO.LAB 12:57
PROVIDERS: Visit Provider Physician Assistant
DX: Z00.00 Encounter for general adult medical examination without abnormal findings (principal); S83.511A Sprain of anterior cruciate ligament of right knee, initial encounter; J93.83 Other pneumothorax; F33.1 Major depressive disorder, recurrent, moderate; F41.9 Anxiety disorder, unspecified
CPT/HCPCS: 36415; 80048; 80061; 80076; 85025; 96127; 99202; 99385

== ENCOUNTER 2025-04-30 07:37 | Outpatient (REF) | payer MEDICARE, MEDICAID, SELFPAY ==
--- NOTE | ~2025-04-30 | XR_ITS ---
EXAMINATION: XR KNEE, RIGHT CLINICAL INFORMATION: M25.561 - Pain in right knee COMPARISON: May 05, 2021 TECHNIQUE: Three views of the right knee. FINDINGS: Again noted are postoperative changes from ACL reconstruction. Joint spaces are preserved. There is no joint effusion. XR/XR knee RT 3V IMPRESSION: Unremarkable right knee. Changes from ACL reconstruction. Electronically signed by: Yared Moulton MD 04/30/2025 12:56 PM EDT
== END 2025-04-30 07:38 | disposition home or self-care (01) ==
LOC: HO.HOSX 07:37
PROVIDERS: Visit Provider Orthopaedic Surgery
DX: S83.241A Other tear of medial meniscus, current injury, right knee, initial encounter (principal); W01.0XXA Fall on same level from slipping, tripping and stumbling without subsequent striking against object, initial encounter
CPT/HCPCS: 73562; 99202

== ENCOUNTER 2025-04-30 12:21 | Outpatient (AMB) | payer MEDICARE, MEDICAID, SELFPAY ==
[2025-04-30 12:35] VITALS: BMI 24.4
--- NOTE | 2025-04-30 12:35 | MHC.OFFVIS ---
Vital Signs 04/30/25 12:35 Height 6 ft Weight 180 lb BMI 24.4 Intake Visit Reasons: Right knee pain and giving way Intake Note: Tone is a 35 year old male who presents with complaints of progressively worsening right knee pain and giving way. The patient states that he underwent right knee ACL reconstruction surgery in January of [address] Hayes. He did well initially. He states that several months ago he tripped and fell while walking. He twisted his knee and had acute onset of pain. Since that time his symptoms have gotten progressively worse. He has failed the last 6 weeks of conservative treatment which has included Tylenol, anti-inflammatory medicines, a home exercise program and physical therapy exercises. He states that his right knee will give out several times per day. Allergies No Known Allergies Allergy (Verified 04/30/25 12:35) Medication List - Last Reconciled 04/30/25 by Ignacio Tolentino MD sertraline 50 mg PO DAILY [facility] Medical History (Updated 04/30/25 @ 13:00 by Ignacio Tolentino MD) Recurrent moderate major depressive disorder with anxiety Cocaine abuse Surgical History Postop check H/O knee surgery Family History Mother Diabetes Social History Household Members: Family Household Members Other:: Father Housing: House Do you presently have visiting nurse or other home services: No Alcohol intake: current Alcohol intake frequency: holidays/special occasions only Comment: COUNTS CORRECT Patient Tobacco Use Status: Former Tobacco user (Quite 03/08/2024) Tobacco use type: Cigarette Cigarette Packs Per Day: 1 e-Cigarette/Vaping Use: Never Used Substance Use Type: Crack/Cocaine and Marijuana service: No Current occupational status: disabled Current occupation: rt handed Cognitive needs: No Hearing needs: No Vision needs: Yes (Rx glasses) Physical Exam Vital Signs: BMI result Body Mass Index 24.4 Const Other: Well-nourished well-developed very friendly male awake alert and oriented x3 in no acute distress Extrem Other: Right knee examination shows a minimal effusion, minimal crepitus with range of motion, tenderness along his medial joint line, positive Jasbir's test, no instability Results Reviewed Results Reviewed: X-rays of the patient's right knee show mild diffuse joint space narrowing, no acute bony abnormalities Assessment & Plan Assessment & Plan (1) Tear of medial meniscus of right knee: Code(s): S83.241A - Other tear of medial meniscus, current injury, right knee, initial encounter Category: Medical Plan Mr. Borja presents with right knee pain and mechanical symptoms most likely due to a medial meniscus tear versus possible recurrent ACL tearing. Thus, I will send the patient for an MRI of his right knee for further evaluation. I will see him back once the MRI is completed to discuss the findings and treatment options. He will contact me prior to that time should any questions or concerns arise. I spent 22 minutes in reviewing the patient's records and imaging studies, seeing the patient and documenting in the medical record. Orders: Orders XR knee RT 3V Today M25.561 - Pain in right knee MR knee RT wo con 05/01/25 S83.241A - Other tear of medial meniscus, current injury, right knee, initial encounter Coding Level of Care Code New Pt Level 3 (36770) Complex EM visit Add On G2211 Diagnoses Tear of medial meniscus of right knee S83.241A
== END 2025-04-30 12:55 | disposition home or self-care (01) ==
LOC: HO.HOS 12:22
PROVIDERS: Visit Provider Orthopaedic Surgery
DX: S83.241A Other tear of medial meniscus, current injury, right knee, initial encounter (principal)
CPT/HCPCS: 99203; G2211

== ENCOUNTER → 2025-04-30 12:31 | Outpatient (BNV) | payer MEDICARE, MEDICAID, SELFPAY | PROVIDERS: Visit Provider Radiology Diagnostic Radiology | DX: M25.561 Pain in right knee (principal) | CPT/HCPCS: 73562 ==

== ENCOUNTER 2025-05-26 14:21 | Outpatient (REF) | payer MEDICARE, MEDICAID, SELFPAY ==
--- NOTE | ~2025-05-26 | MR_ITS ---
EXAMINATION: MR KNEE WITHOUT CONTRAST, RIGHT CLINICAL INFORMATION: Medial meniscus injury . Patient reports lateral knee pain, swelling; patient reports prior ACL surgery 2020 COMPARISON: MRI 06/11/2021 TECHNIQUE: MRI of the knee without contrast was performed using routine sequences on a high-field scanner. FINDINGS: MENISCI: Medial Meniscus: There is a vertical, propagating T2 signal in the peripheral/meniscocapsular interface of the posterior horn, from possible undisplaced tear. Findings appear more prominent as compared to previous. Lateral Meniscus: Redemonstrated is a bucket-handle tear of the lateral meniscus. There is torn meniscal tissue displaced centrally, and along the anterior horn. There is irregular tearing of the displaced meniscal tissue anteriorly, and in the region of the anterior horn. Findings appear new/more prominent as compared to previous. Inferior articular surface tearing in the body. Small caliber of the posterior horn, with inner margin blunting/horizontal signal abnormality concerning for a tear.. LIGAMENTS: Cruciate: Postsurgical changes from prior ACL reconstruction surgery. The ACL graft is not visualized consistent with complete tear. PCL is intact. Collateral: Intact EXTENSOR MECHANISM: Intact ARTICULAR CARTILAGE/BONE: Patellofemoral Compartment: Partial thickness chondral loss, chondral fissuring in the medial patellar facet/patellar apex, more prominent as compared to previous. Medial Compartment: Redemonstrated chondral thinning in the posterior weightbearing tibial plateau. Lateral Compartment: Cartilage heterogeneity in the weightbearing femoral condyle bony undulation of the weightbearing femoral condyle, likely related to the prior trauma. No evidence of acute fracture. JOINT FLUID AND BURSAE: Small effusion. No significant Ewing's cyst. MR/MR knee RT wo con IMPRESSION: * Bucket-handle tear of the lateral meniscus. There is tearing of the displaced meniscal tissue, as well as tear involving the anterior horn and body. Possible tear in the posterior horn. * Findings in the medial meniscal posterior horn could represent a peripheral/meniscal capsular tear. * Nonvisualization/absence of the ACL graft, consistent with complete tear. * Tricompartment arthritis as above. *Small effusion. Electronically signed by: Baron Arrieta MD 05/27/2025 11:24 AM EDT
== END 2025-05-26 14:22 | disposition home or self-care (01) ==
LOC: HO.MRI 14:21
PROVIDERS: Visit Provider Orthopaedic Surgery
DX: S83.241A Other tear of medial meniscus, current injury, right knee, initial encounter (principal)
CPT/HCPCS: 73721

== ENCOUNTER → 2025-05-26 14:25 | Outpatient (BNV) | payer MEDICARE, MEDICAID, SELFPAY | PROVIDERS: Visit Provider Radiology Diagnostic Ultrasound | DX: S83.241A Other tear of medial meniscus, current injury, right knee, initial encounter (principal); M17.11 Unilateral primary osteoarthritis, right knee; M25.461 Effusion, right knee | CPT/HCPCS: 73721 ==

== ENCOUNTER 2025-06-23 10:12 | Outpatient (AMB) | payer MEDICARE, MEDICAID, SELFPAY ==
--- NOTE | 2025-06-23 10:13 | MHC.OFFVIS ---
Intake Visit Reasons: OV-Right Knee-Discuss Intake Note: Tone is a 35 year old male who presents today for a follow up of his Right Knee. He was last seen with Dr. Tolentino where he reported history of an ACL Reconstruction with Dr. Hayes in 2019. About a year ago he tripped and sustained a twisting injury to the right knee which caused an acute onset of pain. Since then he has had progressively worsening pain. Dr. Tolentino has ordered an MRI and referred the patient to discuss surgical treatment options. Allergies No Known Allergies Allergy (Verified 06/23/25 10:14) HPI HPI OV-Right Knee-Discuss : Details: Tone is a 35 year old male who presents today for a follow up of his Right Knee. He was last seen with Dr. Tolentino where he reported history of an ACL Reconstruction with Dr. Hayes in 2019. About a year after the initial surgery he sustained a twisting injury to the right knee which caused an acute onset of pain. since then he feels like he has had giving way episodes that have recurred. Now he feels like his knee gives away several times a week. He has pain and difficulty engaging in daily activities without either pain or giving way. [facility] Medical History (Updated 06/23/25 @ 12:48 by Gino Carmona MD) Recurrent moderate major depressive disorder with anxiety Cocaine abuse Surgical History Postop check H/O knee surgery Family History Mother Diabetes Social History Household Members: Family Household Members Other:: Father Housing: House Do you presently have visiting nurse or other home services: No Alcohol intake: current Alcohol intake frequency: holidays/special occasions only Comment: COUNTS CORRECT Patient Tobacco Use Status: Former Tobacco user (Quite 03/08/2024) Tobacco use type: Cigarette Cigarette Packs Per Day: 1 e-Cigarette/Vaping Use: Never Used Substance Use Type: Crack/Cocaine and Marijuana service: No Current occupational status: disabled Current occupation: rt handed Cognitive needs: No Hearing needs: No Vision needs: Yes (Rx glasses) Physical Exam Exam Exam: On exam this is a pleasant gentleman no acute distress. Right knee is notable for full range of motion with effusion. Positive pivot shift. 2+ Ericka's/ anterior drawer. Lateral joint line tenderness with a negative David's. Results Reviewed Results Reviewed: I personally reviewed relevant radiographs. Right Knee MRI 05/26/25 IMPRESSION: * Bucket-handle tear of the lateral meniscus. There is tearing of the displaced meniscal tissue, as well as tear involving the anterior horn and body. Possible tear in the posterior horn. * Findings in the medial meniscal posterior horn could represent a peripheral/meniscal capsular tear. * Nonvisualization/absence of the ACL graft, consistent with complete tear. Assessment & Plan Assessment & Plan (1) ACL graft tear: Code(s): T84.89XA - Other specified complication of internal orthopedic prosthetic devices, implants and grafts, initial encounter Category: Medical Plan: this is a 35-year-old with a history of ACL reconstruction 6 years ago who has an unstable ACL deficient right knee. There is also a bucket-handle tear of the lateral meniscus. 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 He has recurrent instability and giving way and pain. I recommend ACL reconstruction. I recommend reconstruction with autograft and I typically recommend bone patella bone. This is no exception. I think the challenge with him is modification of activity postoperatively to avoid re-injury. He works at [employer] and that can be difficult in balancing recovery with financial pressures. He understands this he will contemplate our discussion and get back to me when he can find a time to take at least 6 weeks off of work. Coding Level of Care Code Est Pt Level 4 (04340) Diagnoses ACL graft tear T84.89XA
== END 2025-06-23 10:37 | disposition home or self-care (01) ==
LOC: HO.HOS 10:13
PROVIDERS: Visit Provider Orthopaedic Surgery
DX: T84.89XA Other specified complication of internal orthopedic prosthetic devices, implants and grafts, initial encounter (principal); S83.511D Sprain of anterior cruciate ligament of right knee, subsequent encounter; S83.251D Bucket-handle tear of lateral meniscus, current injury, right knee, subsequent encounter
CPT/HCPCS: 99214

== ENCOUNTER → 2025-06-23 10:12 | Outpatient (BNVA) | payer MEDICARE, MEDICAID, SELFPAY | PROVIDERS: Visit Provider Orthopaedic Surgery | DX: S83.251D Bucket-handle tear of lateral meniscus, current injury, right knee, subsequent encounter (principal); S83.511D Sprain of anterior cruciate ligament of right knee, subsequent encounter; X50.1XXD Overexertion from prolonged static or awkward postures, subsequent encounter; T84.89XD Other specified complication of internal orthopedic prosthetic devices, implants and grafts, subsequent encounter | CPT/HCPCS: 99212 ==